=== PATIENT | male | born 1955 | race Caucasian/White ===

== ENCOUNTER 2019-03-31 21:34 | Outpatient (REF) | payer MEDICARE, BC, SELFPAY ==
[2019-03-31 22:18] LABS: Anion Gap 12.3 mmol/L (3-11); BUN 30 mg/dL (7-18); CO2 19.7 mmol/L (21.0-32.0); CREATININE 1.54 mg/dL (0.70-1.30); Calcium 8.7 mg/dL (8.5-10.1); Chloride 109 mmol/L (98-107); Estimated GFR 45.56 (mL/min/1.73m2); Glucose 81 mg/dL (70-100); Potassium 5.2 mmol/L (3.5-5.1); Sodium 141 mmol/L (136-145)
[2019-03-31 22:24] LABS: Hemoglobin A1C 6.8 % (4.5-6.2)
== END 2019-03-31 21:54 ==
LOC: LBN 21:34
PROVIDERS: PCP Family Medicine; Visit Provider Family Medicine
DX: E11.52 Type 2 diabetes mellitus with diabetic peripheral angiopathy with gangrene (principal)
CPT/HCPCS: 80048; 83036

== ENCOUNTER 2019-09-29 13:09 | Outpatient (REF) | payer MEDICARE, BC, SELFPAY ==
[2019-09-29 22:55] LABS: Anion Gap 12.6 mmol/L (3-11); BUN 40 mg/dL (7-18); CO2 21.4 mmol/L (21.0-32.0); CREATININE 1.82 mg/dL (0.70-1.30); Calcium 9.4 mg/dL (8.5-10.1); Chloride 107 mmol/L (98-107); Estimated GFR 37.46 (mL/min/1.73m2); Glucose 120 mg/dL (74-106); Sodium 141 mmol/L (136-145)
[2019-09-29 23:03] LABS: Potassium 6.4 mmol/L (3.5-5.1)
== END 2019-09-29 13:29 ==
LOC: NCHCN 13:09
PROVIDERS: PCP Family Medicine; Visit Provider Family Medicine
DX: E87.5 Hyperkalemia (principal)
CPT/HCPCS: 80048

== ENCOUNTER 2019-09-30 09:27 | Emergency (ER) | payer MEDICARE, BC, SELFPAY ==
[2019-09-30] VITALS (18 sets, daily range): BP systolic 137–164; BP diastolic 59–78; PULSE 57–70; RESP 16–25; TEMP 36.7; O2SAT 94–97
--- NOTE | 2019-09-30 10:04 | W.ED.GENAD ---
Discharge Plan Disposition Patient Disposition: HOME Condition: Improving Discharge Details Chief Complaint: GenMedical Clinical Impression: Hyperkalemia Primary Care Provider: Belle Garcia ED Provider: Vale Ledezma Home Meds and New Rx's Prescriptions: Continued ibuprofen [Advil Liqui-Gel] 200 MG capsule 200 mg PO PRN PRNRF: 0 Lantus Solostar U-100 Insulin 100 UNIT/1 ML insulin pen 50 units Sub-Q HS RF: 0 atorvastatin [Lipitor] 10 MG tablet 10 mg PO DAILY RF: 0 aspirin 81 MG tablet,delayed release (DR/EC) 81 mg PO DAILY RF: 0 ceftriaxone 2 GM recon soln 2 IV RF: 0 Eliquis 5 MG tablet 5 mg PO DAILY RF: 0 pregabalin [Lyrica] 100 mg Capsule 100 mg PO BID RF: 0 Discontinued metformin 500 MG tablet 500 mg PO BID RF: 0 Discharge Instructions Instructions: Hyperkalemia (ED) Additional Instructions: Please continue with the medication changes as already made by your primary care. If you develop any weakness, palpitations, chest pain or other new/worsening symptoms please seek care urgently once again. Otherwise, please follow-up closely with primary care. Please call today to schedule follow-up appointment. Referrals: Belle Garcia [Primary Care Provider] - Discharge Data Discharge Date/Time-TO BE ENTERED AT DEPARTURE: 09/30/19 11:15 Medical Decision Making Patient is a pleasant 64-year-old male presenting today with chief complaint of hyperkalemia. Patient was diagnosed with hyperkalemia with a K of 6.4 yesterday. His metformin was stopped this is a concern to be of any agent. His kidney function has also been declining. Patient is denying any symptoms of hyperkalemia at this time. Reports that he is feeling quite well. Lipitor was also stopped on Friday after potassium was 6 was noted by cardiology. ECG reviewed by Dr. Baig. Patient in NSR with rate 63, no acute ischemic changes noted. Labs reviewed. Mild anemia with a hemoglobin of 12.2. Potassium is down to 5.3, this is downtrending from 6.4 yesterday. BUN is elevated at 41, patient is hydrating at this time. Creatinine is 1.74 this is down slightly from 1.82 yesterday. Albumin is low at 2.9, suspect this is cystic with underlying kidney issues. Last albumin completed here was 3.9 in 2017. He reports his primary care has referred him to a application helper. I have advised that he continue with cessation of his metformin as I am concerned this may be driving the issues bring him here today. He continues to report that he is feeling quite well. I will touch base with his primary care to discuss any further medication changes. Discussed case with Dr. Garcia. Patient and Dr. Grant have a plan moving forward regarding medication changes. No further changes need to be made at this time. Patient was given strict return precautions. He has an appointment upcoming with primary care. All of his questions or concerns were addressed and is agreement this plan. HPI General Mode of arrival: ambulatory. Date/Time Provider Initiated Documentation: 09/30/19 09:28. Limitations to Documentation: no limitations. Information obtained by: patient and family (accompanied by ). HPI Narrative: Patient is 64-year-old male, accompanied by his , with history of cardiac murmur, type 2 diabetes, presenting today with chief complaint of hyperkalemia. Patient was seen by cardiology at [facility] on Friday and was noted to have a potassium of 6 and was advised to have this rechecked. This was rechecked by primary care yesterday at which time the potassium was found to be 6.4. Primary care contact the patient and asked that he come the emergency department for evaluation. They did stop his metformin yesterday. I have also noted a climb in his creatinine and decreased GFR. Patient denies any weakness, change in fatigue, muscle weakness. No recent travel. No shortness of breath. Denies any chest pain. No palpitations. Related Data Home Medications Medication Instructions Recorded Confirmed Lantus Solostar U-100 Insulin 50 units SUB-Q HS 08/29/17 09/30/19 ibuprofen [Advil Liqui-Gel] 200 mg PO PRN PRN 08/29/17 09/30/19 aspirin 81 mg PO DAILY 12/30/17 09/30/19 atorvastatin [Lipitor] 10 mg PO DAILY 12/30/17 09/30/19 Eliquis 5 mg PO DAILY 12/31/17 09/30/19 ceftriaxone 2 IV 12/31/17 pregabalin [Lyrica] 100 mg PO BID 09/30/19 09/30/19 Allergies Allergy/AdvReac Type Severity Reaction Status Date / Time No Known Allergies Allergy Unverified 09/30/19 09:37 General Stated Complaint: GenMedical DAMION: 3 Review of Systems Constitutional Constitutional: Reports as per HPI, Denies chills, Denies fever(s), Denies headache(s), Denies lethargy and Denies poor appetite Eyes Eyes: Denies change in vision ENT Ears, Nose, Mouth, and Throat: Denies dizziness and Denies headache(s) Cardiovascular Cardiovascular: Reports as per HPI, Denies chest pain, Denies chest pain at rest, Denies chest pain with activity, Denies dyspnea and Denies dyspnea on exertion Respiratory Respiratory: Reports as per HPI, Denies chest congestion, Denies cough, Denies pain on inspiration, Denies pain with cough, Denies dyspnea, Denies dyspnea on exertion and Denies wheezing Gastrointestinal Gastrointestinal: Reports as per HPI, Denies abdominal pain, Denies diarrhea, Denies nausea and Denies vomiting Genitourinary Genitourinary: Denies system reviewed and no additional complaints, except as docu (denies change in urinary habits) Musculoskeletal Musculoskeletal: Reports as per HPI, Denies back pain, Denies muscle cramps, Denies muscle weakness and Denies numbness Integumentary/Breasts Skin/Breast: Reports as per HPI and Denies rash Neurologic Neurologic: Reports as per HPI, Denies dizziness, Denies headache(s) and Denies numbness Allergic/Immunologic Allergic/Immunologic: Denies wheezing PFSH Medical History Cardiac murmur Colon polyps Type 2 diabetes mellitus Social History Smoking/Tobacco Use Status: Never Drug use: Never Do you feel safe at home: Yes Do you feel safe in your relationship?: Yes Exam Const General: cooperative, healthy appearing, comfortable, no acute distress and well developed Nutritional Appearance: well nourished and overweight Orientation: alert, awake and oriented x3 HENMT Head: normal to inspection Ears: hearing grossly normal bilaterally Mouth: moist mucous membranes Chest Chest: normal inspection of the chest, normal palpation of entire chest wall and no crepitus Resp Effort & Inspection: normal respiratory effort, able to speak in complete sentences and no respiratory distress Auscultation: clear to auscultation bilaterally, no rales, no rhonchi and no wheezes Cardio Rate: regular rate Rhythm: regular rhythm Heart Sounds: murmur systolic GI Inspection: normal to inspection, no edema and non-distended Palpation: soft, no hepatosplenomegaly, not firm, no guarding, not rigid and nontender Auscultation: normal bowel sounds Skin General skin exam: no rashes or lesions noted Trauma: no lacerations or abrasions Neuro General: alert, awake and oriented x3 Cognition: normal cognition Speech: speech normal Gait: normal gait Motor: muscle tone normal throughout and strength 5/5 throughout DTR's: Rt Biceps: 2+, Lt Biceps: 2+, Rt Brachioradialis: 2+ and Lt Brachioradialis: 2+ Extrem General: normal to inspection, normal capillary refill, no pedal edema, no calf tenderness and normal gait (Patient status post left BKA) Psych Appearance: grossly normal and well kempt Mental Status: mental status grossly normal Speech and Movement: speech and movement normal Course Vital Signs Vital signs: Vital Signs Temperature 36.7 C 09/30/19 09:33 Pulse 60 09/30/19 09:33 Respiratory Rate 16 09/30/19 09:33 Blood Pressure 164/71 H 09/30/19 09:33 Pulse Oximetry 97 09/30/19 09:33 Temperature 36.7 C 09/30/19 09:33 Temperature Source Skin 09/30/19 09:33 Pulse 63 09/30/19 09:46 Pulse 63 09/30/19 10:00 Respiratory Rate 19 09/30/19 10:00 Respiratory Effort Non-Labored 09/30/19 09:42 Blood Pressure 142/78 H 09/30/19 09:46 Blood Pressure Mean 90 09/30/19 09:46 Blood Pressure Position Sitting 09/30/19 09:33 Pulse Oximetry 95 09/30/19 10:00 Oxygen Delivery Method Room Air 09/30/19 09:33 Oxygen Flow Rate 0 09/30/19 09:33 Pain Level 0 09/30/19 09:33
[2019-09-30] MEDS: Normal Saline 1,000 ML 1000 ML IV (10:06)
[2019-09-30 10:15] LABS: Abs Immature Grans 0.02 k/cumm (0.0-0.09); Absolute Basophil Count 0.03 k/cumm (0.0-0.2); Absolute Eosinophil Count 0.15 k/cumm (0.0-0.7); Absolute Lymphocyte Count 1.11 k/cumm (1.2-3.4); Absolute Monocyte Count 0.61 k/cumm (0.11-0.7); Absolute Neutrophil Count 3.46 k/cumm (1.2-6.7); Basophils % 0.6; Eosinophils % 2.8; HCT 37.4 % (40.0-50.0); HGB 12.2 g/dL (13.5-17.5); Immature Grans % 0.4 %; Lymphocytes % 20.6; Mean Corp. HGB Concentration 32.6 g/dL (32.0-36.0); Mean Corpuscular Hemoglobin 28.8 pg (27.0-33.0); Mean Corpuscular Volume 88.4 fL (80-95); Mean Platelet Volume 11.2 fL (8.0-11.0); Monocytes % 11.3; Neutrophils % 64.3; Platelet Count 205 x1000/uL (130-400); RBC 4.23 m/cumm (4.50-6.00); RBC Distribution Width 14.1 % (11.8-14.1); White Blood Cell Count 5.38 k/cumm (4.4-10.8)
[2019-09-30 10:22] LABS: ALT 15 U/L (16-63); AST 26 U/L (15-37); Albumin 2.9 g/dL (3.4-5.0); Alkaline Phosphatase 78 U/L (46-116); Anion Gap 9.6 mmol/L (3-11); BUN 41 mg/dL (7-18); Bilirubin, Total 0.2 mg/dL (0.2-1.0); CO2 21.4 mmol/L (21.0-32.0); CREATININE 1.74 mg/dL (0.70-1.30); Calcium 8.8 mg/dL (8.5-10.1); Chloride 109 mmol/L (98-107); Estimated GFR 39.45 (mL/min/1.73m2); Glucose 139 mg/dL (74-106); Potassium 5.3 mmol/L (3.5-5.1); Sodium 140 mmol/L (136-145); Total Protein 6.5 g/dL (6.4-8.2)
== END 2019-09-30 11:15 | disposition home or self-care (01) ==
PROVIDERS: Emergency Provider Physician Assistant; PCP Family Medicine
DX: E87.5 Hyperkalemia (principal); E11.9 Type 2 diabetes mellitus without complications; Z79.4 Long term (current) use of insulin
CPT/HCPCS: 80053; 93005; 96360; 99285; 85025; 93010; 99284

== ENCOUNTER 2019-10-14 13:46 | Emergency (ER) | payer MEDICARE, BC, SELFPAY ==
[2019-10-14] VITALS (40 sets, daily range): BP systolic 133–190; BP diastolic 58–83; PULSE 56–71; RESP 13–24; TEMP 36.5; O2SAT 95–100
--- NOTE | 2019-10-14 13:47 | W.ED.GENAD ---
Discharge Plan Disposition Patient Disposition: HOME Condition: Fair Discharge Details Chief Complaint: Palpitatns Clinical Impression: HUY (acute kidney injury), Acute dehydration Primary Care Provider: Belle Garcia ED Provider: Vale Ledezma Home Meds and New Rx's Prescriptions: Continued Lantus Solostar U-100 Insulin 100 UNIT/1 ML insulin pen 33 units Sub-Q HS RF: 0 atorvastatin [Lipitor] 10 MG tablet 10 mg PO DAILY RF: 0 aspirin 81 MG tablet,delayed release (DR/EC) 81 mg PO DAILY RF: 0 Eliquis 5 MG tablet 5 mg PO DAILY RF: 0 pregabalin [Lyrica] 100 mg Capsule 100 mg PO BID RF: 0 acetaminophen 500 mg Tablet 500 mg PO Q6H PRNRF: 0 Victoza 2-Jimmy 0.6 mg/0.1 mL (18 mg/3 mL) Pen Injector 1.8 mg SUBCUT Q24H RF: 0 Discharge Instructions Instructions: Dehydration (ED) Additional Instructions: Encourage water intake. Your goal is for you to urinate multiple times a day and have your urine be clear. Dr. Garcia would like for you to go to the office Friday morning to have your blood work repeated. She will contact you with results. If you develop fever/chills, pain, chest shortness of breath or other new/worsening symptoms please seek care urgently once again. Referrals: Belle Garcia [Primary Care Provider] - Discharge Data Discharge Date/Time-TO BE ENTERED AT DEPARTURE: 10/14/19 18:19 Medical Decision Making <Rock Borges DO - Last Filed: 10/14/19 14:26> EKG 14: 06 Rate 68, IA 168, QTc 406, QRS 134, sinus rhythm, right bundle branch block, no evidence of STEMI. Flattening of T wave in lead III. Nonspecific less than 1 mm depression in V4 and V5. Slightly atypical QRS morphology in V2 and V3, however I do feel that this is his right bundle branch block, and not an epsilon wave. EKG does appear to be changed from previous EKG on 09/30/2019. <MELVIN Cruz - Last Filed: 10/15/19 16:08> Patient is a pleasant 64-year-old male, accompanied by his , with chief complaint of irregular heartbeat noted by home health nursing staff. Patient has history of type 2 diabetes, cardiac murmur, peripheral neuropathy, osteomyelitis. Patient has had an amputation on the left lower extremity, injection of the right fifth. Patient status post angioplasty on 12/26/2017. Patient denies having any symptoms at this time that this was noted by home health nursing. Denies any palpitations, lightheadedness, chest pain, shortness of breath. States that right now he is feeling quite well. Patient was seen by me recently after having been diagnosed with hyperkalemia. When he presented to emerge department, his hypokalemia was self resolving. He is since stopped his metformin at the instruction primary care and myself. He reports that his primary care with concern for possible recurrence of his hyperkalemia. On exam, patient is resting comfortably. Patient has no irregularity in rhythm and pulse in extremities or with auscultation. He does have a harsh systolic murmur which is known by the patient and unchanged since previous evaluation. EKG was reviewed by Dr. Borges, please see his note. No acute abnormalities are noted. Labs reviewed. Significant for creatinine of 2.32, this is up from 1.74 on the . BUN is elevated at 56 which is high er than he has ever been historically. Discussed this with the patient. He is aware of his chronic kidney disease, has appointment with vendor representatives next month. States that he does not drink water daily. Consulted with the patients primary care, she is concerned that the patient is noncompliant and that htis is concerning. We discussed inpatient versus outpatient management for the patient's acute kidney injury. I also discussed disposition options with patient and his . They feel that discharge home with increased oral intake would be appropriate. Primary care advises that she will order labs to be repeated Friday and the patient should come in for lab work in the morning. Patient is received 1 L fluid thus far. He is hydrating orally here. Again, the patient admits to poor water intake and advised that he will be able to improve this. He was given strict return precautions. All the questions and concerns were addressed and they are in agreement this plan. HPI <Rock Borges DO - Last Filed: 10/14/19 14:26> General Date/Time Provider Initiated Documentation: 10/14/19 13:47. Related Data Home Medications Medication Instructions Recorded Confirmed Lantus Solostar U-100 Insulin 33 units SUB-Q HS 08/29/17 10/14/19 aspirin 81 mg PO DAILY 12/30/17 10/14/19 atorvastatin [Lipitor] 10 mg PO DAILY 12/30/17 10/14/19 Eliquis 5 mg PO DAILY 12/31/17 10/14/19 pregabalin [Lyrica] 100 mg PO BID 09/30/19 10/14/19 Victoza 2-Jimmy 1.8 mg SUBCUT Q24H 10/14/19 10/14/19 acetaminophen 500 mg PO Q6H PRN 10/14/19 10/14/19 Allergies Allergy/AdvReac Type Severity Reaction Status Date / Time No Known Allergies Allergy Unverified 10/14/19 14:00 <MELVIN Cruz - Last Filed: 10/15/19 16:08> General Mode of arrival: ambulatory. Limitations to Documentation: no limitations. Information obtained by: patient, family and RN notes reviewed. HPI Narrative: Patient is a pleasant 64-year-old male presents today, coming by his , with chief complaint of home health nurse telling him that he had no irregular heartbeat. States that this was told him this morning when she was assessing the wound on his right foot. Patient has multiple chronic issues but was seen recently for hyperkalemia. He contacted his primary care who was concerned that hyperkalemia may be causing this abnormality and prompted him to come the emergency department. Patient denies having any symptoms. He did not have any sense of palpitations shortness of breath, lightheadedness, chest pain, nausea, neck pain, arm pain. He reports feeling well at this point. No recent change in medications. General DAMION: 3 <MELVIN Cruz - Last Filed: 10/15/19 16:08> Constitutional Constitutional: Reports as per HPI, Denies chills, Denies fever(s), Denies headache(s), Denies lethargy and Denies poor appetite Eyes Eyes: Denies change in vision ENT Ears, Nose, Mouth, and Throat: Denies dizziness and Denies headache(s) Cardiovascular Cardiovascular: Reports as per HPI, Denies chest pain, Denies chest pain at rest, Denies chest pain with activity, Denies leg edema, Denies lightheadedness, Denies radiating jaw, neck or arm pain, Denies palpitations, Denies dyspnea and Denies dyspnea on exertion Respiratory Respiratory: Reports as per HPI, Denies chest congestion, Denies cough, Denies pain on inspiration, Denies pain with cough, Denies dyspnea, Denies dyspnea on exertion and Denies wheezing Gastrointestinal Gastrointestinal: Reports as per HPI, Denies abdominal pain, Denies diarrhea, Denies nausea and Denies vomiting Genitourinary Genitourinary: Denies system reviewed and no additional complaints, except as docu (denies change in urinary habits) Musculoskeletal Musculoskeletal: Reports as per HPI and Denies back pain Integumentary/Breasts Skin/Breast: Reports as per HPI and Denies rash Neurologic Neurologic: Reports as per HPI, Denies dizziness and Denies headache(s) Endocrine Endocrine: Denies palpitations Allergic/Immunologic Allergic/Immunologic: Denies wheezing PFSH <Rock Borges DO - Last Filed: 10/14/19 14:26> Social History Smoking/Tobacco Use Status: Never Alcohol Intake: former Drug use: Never Substance use type: does not use Do you feel safe at home: Yes Do you feel safe in your relationship?: Yes <MELVIN Cruz - Last Filed: 10/15/19 16:08> Const General: cooperative, healthy appearing, comfortable, no acute distress and well developed Nutritional Appearance: well nourished and overweight Orientation: alert, awake and oriented x3 HENMT Head: normal to inspection Ears: hearing grossly normal bilaterally Mouth: moist mucous membranes Chest Chest: normal inspection of the chest, normal palpation of entire chest wall and no crepitus Resp Effort & Inspection: normal respiratory effort, able to speak in complete sentences and no respiratory distress Auscultation: clear to auscultation bilaterally, no rales, no rhonchi and no wheezes Cardio Rate: regular rate Rhythm: regular rhythm Heart Sounds: murmur systolic harsh and at the left sternal border GI Inspection: normal to inspection, no edema and non-distended Palpation: soft, no hepatosplenomegaly, not firm, no guarding, not rigid and nontender Auscultation: normal bowel sounds Back/Spine/Pelvis Back: no CVA tenderness Thoracic/Lumbar Spine: thoracic and lumbar spine normal to inspection Skin General skin exam: no rashes or lesions noted Trauma: no lacerations or abrasions Neuro General: alert, awake and oriented x3 Cognition: normal cognition Speech: speech normal Gait: normal gait Extrem General: normal to inspection, normal capillary refill, no pedal edema, no calf tenderness and normal gait Psych Appearance: grossly normal and well kempt Mental Status: mental status grossly normal Speech and Movement: speech and movement normal
[2019-10-14] MEDS: Normal Saline 1,000 ML 150 ML IV (13:50)
[2019-10-14 14:45] LABS: Abs Immature Grans 0.02 k/cumm (0.0-0.09); Absolute Basophil Count 0.04 k/cumm (0.0-0.2); Absolute Eosinophil Count 0.11 k/cumm (0.0-0.7); Absolute Lymphocyte Count 1.56 k/cumm (1.2-3.4); Absolute Neutrophil Count 4.11 k/cumm (1.2-6.7); Basophils % 0.6; Eosinophils % 1.7; HCT 41.9 % (40.0-50.0); HGB 13.7 g/dL (13.5-17.5); Immature Grans % 0.3 %; Lymphocytes % 23.9; Mean Corp. HGB Concentration 32.7 g/dL (32.0-36.0); Mean Corpuscular Hemoglobin 28.9 pg (27.0-33.0); Mean Corpuscular Volume 88.4 fL (80-95); Monocytes % 10.7; Neutrophils % 62.8; Platelet Count 269 x1000/uL (130-400); RBC 4.74 m/cumm (4.50-6.00); RBC Distribution Width 14.4 % (11.8-14.1); White Blood Cell Count 6.54 k/cumm (4.4-10.8)
[2019-10-14 15:26] LABS: ALT 21 U/L (16-63); AST 17 U/L (15-37); Albumin 3.4 g/dL (3.4-5.0); Alkaline Phosphatase 94 U/L (46-116); Anion Gap 10.1 mmol/L (3-11); BUN 56 mg/dL (7-18); Bilirubin, Total 0.3 mg/dL (0.2-1.0); CO2 24.9 mmol/L (21.0-32.0); CREATININE 2.32 mg/dL (0.70-1.30); Chloride 106 mmol/L (98-107); Estimated GFR 28.31 (mL/min/1.73m2); Glucose 179 mg/dL (74-106); Magnesium 2.3 mg/dL (1.8-2.4); Potassium 4.5 mmol/L (3.5-5.1); Sodium 141 mmol/L (136-145); TSH 2.21 uIU/mL (0.36-3.74); Total Protein 7.5 g/dL (6.4-8.2); Troponin I 0.05 ng/Ml (<0.06)
== END 2019-10-14 18:19 | disposition home or self-care (01) ==
PROVIDERS: Emergency Provider Physician Assistant; PCP Family Medicine
DX: N17.9 Acute kidney failure, unspecified (principal); E86.0 Dehydration; E11.42 Type 2 diabetes mellitus with diabetic polyneuropathy; Z79.4 Long term (current) use of insulin
CPT/HCPCS: 80053; 93005; 96361; 96365; 99284; 83735; 84443; 84484; 85025; 93010

== ENCOUNTER 2019-10-18 11:48 | Outpatient (REF) | payer MEDICARE, BC, SELFPAY ==
[2019-10-18 22:15] LABS: Anion Gap 9.1 mmol/L (3-11); CO2 25.9 mmol/L (21.0-32.0); Chloride 104 mmol/L (98-107); Potassium 5.3 mmol/L (3.5-5.1); Sodium 139 mmol/L (136-145)
[2019-10-18 22:31] LABS: BUN 47 mg/dL (7-18); CREATININE 1.94 mg/dL (0.70-1.30); Calcium 9.5 mg/dL (8.5-10.1); Glucose 177 mg/dL (74-106); Magnesium 2.1 mg/dL (1.8-2.4)
== END 2019-10-18 12:08 ==
LOC: NCHCN 11:48
PROVIDERS: PCP Family Medicine; Visit Provider Family Medicine
DX: E87.5 Hyperkalemia (principal); I10 Essential (primary) hypertension; E11.9 Type 2 diabetes mellitus without complications; N18.9 Chronic kidney disease, unspecified
CPT/HCPCS: 80048; 83735

== ENCOUNTER 2019-11-25 01:46 | Outpatient (CLI) | payer MEDICARE, BC, SELFPAY ==
--- NOTE | 2019-11-25 13:53 | DI.US_ITS ---
EXAM: US RENAL CLINICAL HISTORY: CHRONIC KIDNEY DISEASE N18.9, ? OBSTRUCTIVE PROCESS. TECHNIQUE: Lamb scale, color and spectral Doppler were used. COMPARISON: No exams were available for comparison FINDINGS: Renal size in cm: Right: 11.6 left: 11.8 Echogenicity: Normal. Hydronephrosis: No. Cyst or mass: No. Nephrolithiasis: No. Other findings: None. Bladder:Normal. Ureteral jets: Right: Visualized and unremarkable. Left: Not visualized. Prevoid vol:279 cc Postvoid vol:0 cc Prostate: 21 cc DOPPLER FINDINGS: Within normal limits. IMPRESSION: No evidence of hydronephrosis or nephrolithiasis. DATA REPOSITORY:
== END 2019-11-25 02:06 ==
PROVIDERS: PCP Family Medicine; Visit Provider Internal Medicine
DX: N18.9 Chronic kidney disease, unspecified (principal)
CPT/HCPCS: 76770

== ENCOUNTER 2020-02-03 09:49 | Outpatient (REF) | payer MEDICARE, BC, SELFPAY ==
[2020-02-04 08:32] LABS: Abs Immature Grans 0.04 k/cumm (0.0-0.09); Absolute Basophil Count 0.03 k/cumm (0.0-0.2); Absolute Eosinophil Count 0.19 k/cumm (0.0-0.7); Absolute Lymphocyte Count 1.48 k/cumm (1.2-3.4); Absolute Monocyte Count 0.79 k/cumm (0.11-0.7); Absolute Neutrophil Count 4.67 k/cumm (1.2-6.7); Basophils % 0.4; Eosinophils % 2.6; HCT 39.4 % (40.0-50.0); HGB 13.1 g/dL (13.5-17.5); Immature Grans % 0.6 %; Lymphocytes % 20.6; Mean Corp. HGB Concentration 33.2 g/dL (32.0-36.0); Mean Corpuscular Hemoglobin 29.9 pg (27.0-33.0); Mean Platelet Volume 11.6 fL (8.0-11.0); Neutrophils % 64.8; Platelet Count 233 x1000/uL (130-400); RBC 4.38 m/cumm (4.50-6.00); RBC Distribution Width 13.6 % (11.8-14.1)
[2020-02-04 08:53] LABS: ALT 21 U/L (16-63); AST 12 U/L (15-37); Albumin 3.7 g/dL (3.4-5.0); Alkaline Phosphatase 94 U/L (46-116); Anion Gap 7.5 mmol/L (3-11); BUN 42 mg/dL (7-18); Bilirubin, Total 0.3 mg/dL (0.2-1.0); CO2 26.5 mmol/L (21.0-32.0); CREATININE 2.06 mg/dL (0.70-1.30); Calcium 9.4 mg/dL (8.5-10.1); Calculated LDL 79 mg/dL (<100); Chloride 109 mmol/L (98-107); Cholesterol 147 mg/dL (<200); Estimated GFR 32.47 (mL/min/1.73m2); Glucose 123 mg/dL (74-106); HDL Cholesterol 48 mg/dL (40-60); Potassium 5.8 mmol/L (3.5-5.1); Sodium 143 mmol/L (136-145); T4 8.8 ug/mL (4.7-13.3); TSH 3.12 uIU/mL (0.36-3.74); Total Protein 7.2 g/dL (6.4-8.2); Triglyceride 100 mg/dL (<150)
[2020-02-04 09:08] LABS: FREE T4 0.86 ng/dL (0.76-1.46)
[2020-02-05 13:48] LABS: Lipoprotein (a) 110 mg/dL (<=30)
[2020-02-09 11:39] LABS: Misc Referral (MAYO) See Comments
== END 2020-02-03 10:09 ==
LOC: NCHCN 09:49
PROVIDERS: PCP Family Medicine; Visit Provider Family Medicine
DX: Z11.9 Encounter for screening for infectious and parasitic diseases, unspecified (principal); Z79.4 Long term (current) use of insulin; I10 Essential (primary) hypertension; I73.9 Peripheral vascular disease, unspecified
CPT/HCPCS: 80053; 80061; 82172; 83695; 84436; 84439; 84443; 85025

== ENCOUNTER 2020-03-20 13:08 | Outpatient (REF) | payer MEDICARE, BC, SELFPAY ==
[2020-03-20 21:26] LABS: ALT 12 U/L (16-63); AST 14 U/L (15-37); Albumin 3.5 g/dL (3.4-5.0); Alkaline Phosphatase 86 U/L (46-116); BUN 46 mg/dL (7-18); Bilirubin, Total 0.3 mg/dL (0.2-1.0); Calcium 9.2 mg/dL (8.5-10.1); Chloride 109 mmol/L (98-107); Estimated GFR 31.76 (mL/min/1.73m2); Glucose 135 mg/dL (74-106); Sodium 141 mmol/L (136-145); Total Protein 6.7 g/dL (6.4-8.2)
== END 2020-03-20 13:28 ==
LOC: NCHCN 13:08
PROVIDERS: PCP Family Medicine; Visit Provider Family Medicine
DX: I35.0 Nonrheumatic aortic (valve) stenosis (principal)
CPT/HCPCS: 80053

== ENCOUNTER 2020-03-21 13:38 | Emergency (ER) | payer MEDICARE, BC, SELFPAY ==
[2020-03-21] VITALS (18 sets, daily range): BP systolic 119–150; BP diastolic 41–56; PULSE 47–64; RESP 15–23; TEMP 36.6–36.8; O2SAT 96–99
[2020-03-21 14:12] LABS: Abs Immature Grans 0.02 k/cumm (0.0-0.09); Absolute Basophil Count 0.01 k/cumm (0.0-0.2); Absolute Eosinophil Count 0.18 k/cumm (0.0-0.7); Absolute Lymphocyte Count 1.18 k/cumm (1.2-3.4); Absolute Monocyte Count 0.61 k/cumm (0.11-0.7); Absolute Neutrophil Count 3.91 k/cumm (1.2-6.7); Basophils % 0.2; HCT 30.9 % (40.0-50.0); HGB 9.9 g/dL (13.5-17.5); Immature Grans % 0.3 %; Mean Corpuscular Hemoglobin 29.3 pg (27.0-33.0); Mean Corpuscular Volume 91.4 fL (80-95); Mean Platelet Volume 10.7 fL (8.0-11.0); Monocytes % 10.3; Neutrophils % 66.2; Platelet Count 191 x1000/uL (130-400); RBC 3.38 m/cumm (4.50-6.00); RBC Distribution Width 13.8 % (11.8-14.1); White Blood Cell Count 5.91 k/cumm (4.4-10.8)
[2020-03-21 14:23] LABS: ALT 16 U/L (16-63); AST 12 U/L (15-37); Albumin 3.2 g/dL (3.4-5.0); Alkaline Phosphatase 86 U/L (46-116); Anion Gap 7.4 mmol/L (3-11); BUN 45 mg/dL (7-18); Bilirubin, Total 0.3 mg/dL (0.2-1.0); CO2 22.6 mmol/L (21.0-32.0); CREATININE 1.94 mg/dL (0.70-1.30); Calcium 8.8 mg/dL (8.5-10.1); Chloride 107 mmol/L (98-107); Glucose 148 mg/dL (74-106); Magnesium 2.1 mg/dL (1.8-2.4); Potassium 5.4 mmol/L (3.5-5.1); Sodium 137 mmol/L (136-145); Total Protein 6.7 g/dL (6.4-8.2)
[2020-03-21 14:28] LABS: Diff Comment RBC Morph Reviewed; RBC Morphology Normal
--- NOTE | 2020-03-21 14:52 | ED.GENADUL_ITS ---
Discharge Plan Disposition Patient Disposition: HOME Condition: Stable Discharge Details Chief Complaint: GenMedical Clinical Impression: Hyperkalemia Primary Care Provider: Belle Garcia ED Provider: Jonathan Land Home Meds and New Rx's Prescriptions: Continued Lantus Solostar U-100 Insulin 100 UNIT/1 ML insulin pen 33 - 34 units Sub-Q HS RF: 0 atorvastatin [Lipitor] 10 MG tablet 10 mg PO DAILY RF: 0 aspirin 81 MG tablet,delayed release (DR/EC) 81 mg PO DAILY RF: 0 Eliquis 5 MG tablet 5 mg PO DAILY RF: 0 pregabalin [Lyrica] 100 mg Capsule 100 mg PO BID RF: 0 acetaminophen 500 mg Tablet 1,000 mg PO Q6H PRNRF: 0 Victoza 2-Jimmy 0.6 mg/0.1 mL (18 mg/3 mL) Pen Injector 1.8 mg SUBCUT Q24H RF: 0 Discharge Instructions Instructions: Hyperkalemia (ED) Additional Instructions: Potassium was 5.4 today. A single dose of Kayexalate was given. I personally spoke with Dr. Arriola regarding your visit. Please reach out to his office later today or tomorrow for prompt outpatient reevaluation. You will need to have your blood drawn in the next day or 2 to recheck your levels. In the meantime please watch for new or worsening symptoms and return to the ER for any concerns. Medical Decision Making 64-year-old gentleman had routine blood draw yesterday, potassium noted to be 6, unable to be treated as outpatient and sent to the ER for evaluation. He is currently asymptomatic. Mild bradycardia, blood pressure 150/56. He appears well, nontoxic. Will obtain EKG and repeat CBC and CMP before treatment. EKG without signs of obvious hyperkalemia. Patient with mild anemia however is otherwise asymptomatic. Denies black tarry stools or blood in his stool. Potassium today 5.4. Creatinine 1.94 with a GFR of 34.8. GFR appears to be at his baseline. I discussed laboratory values with Dr. Nguyễn. He is fine with the patient receiving a single dose of Kayexalate and being discharged. No obvious emergent process identified here in his visit today and he is otherwise asymptomatic. Will have his blood drawn in the next 24-48 hours to for reassessment. Patient made aware of this plan and comfortable with discharge, no additional questions or concerns. He will reach out to the office of Dr. Nguyễn tomorrow for proper follow-up. Single dose of 30 Kayexalate given now Medical Records Medical records reviewed: Yes I reviewed the patient's medical records. Lab Data Lab results reviewed: Yes I reviewed the patient's lab results. Lab results narrative: Laboratory Tests Range/Units 03/21/20 03/21/20 13:59 13:59 WBC (4.4-10.8) k/cumm 5.91 RBC (4.50-6.00) m/cumm 3.38 L Hgb (13.5-17.5) g/dL 9.9 L Hct (40.0-50.0) % 30.9 L MCV (80-95) fL 91.4 MCH (27.0-33.0) pg 29.3 MCHC (32.0-36.0) g/dL 32.0 RDW (11.8-14.1) % 13.8 Plt Count (130-400) x1000/uL 191 MPV (8.0-11.0) fL 10.7 Immature Gran % % 0.3 Neutrophils % 66.2 Lymphocytes % 20.0 Monocytes % 10.3 Eosinophils % 3.0 Basophils % 0.2 Absolute Neutrophils (1.2-6.7) k/cumm 3.91 Absolute Lymphocytes (1.2-3.4) k/cumm 1.18 L Absolute Monocytes (0.11-0.7) k/cumm 0.61 Absolute Eosinophils (0.0-0.7) k/cumm 0.18 Absolute Basophils (0.0-0.2) k/cumm 0.01 Differential Comment Rbc morph reviewed RBC Morphology Normal Sodium (136-145) mmol/L 137 Potassium (3.5-5.1) mmol/L 5.4 H Chloride (98-107) mmol/L 107 Carbon Dioxide (21.0-32.0) mmol/L 22.6 Anion Gap (3-11) mmol/L 7.4 BUN (7-18) mg/dL 45 H Creatinine (0.70-1.30) mg/dL 1.94 H Estimated GFR/1.73 m2 (mL/min/1.73m2) 34.80 Glucose (74-106) mg/dL 148 H Calcium (8.5-10.1) mg/dL 8.8 Magnesium (1.8-2.4) mg/dL 2.1 Total Bilirubin (0.2-1.0) mg/dL 0.3 AST (15-37) U/L 12 L ALT (16-63) U/L 16 Alkaline Phosphatase (46-116) U/L 86 Total Protein (6.4-8.2) g/dL 6.7 Albumin (3.4-5.0) g/dL 3.2 L ECG Data Attestation: I personally reviewed and interpreted this ECG (s) as follows: Interpretation: EKG performed at 1347. Interpretation reviewed and interpreted with Dr. Arteaga. Sinus bradycardia, ventricular rate of 57. No STEMI. Right bundle branch block. ST depression in V3 through 6, appears rather similar when compared to previous EKG on 10-14-19 HPI General Mode of arrival: ambulatory . Date/Time Provider Initiated Documentation: 03/21/20 13:54 . Limitations to Documentation: no limitations . Information obtained by: patient . HPI Narrative: This is a 64-year-old gentle man with history of cardiac disease, chronic renal disease, type [address] diabetes. He [address] a CT with contrast at [facility] recently, had routine blood work done yesterday as an outpatient to have his renal function and potassium evaluated. Potassium was noted to be 6. Dr. Nguyễn wanted the patient to receive Kayexalate however the pharmacy did not have it via prescription so subsequently the patient came to the ER for evaluation. Patient reports that he feels well today. Denies fever, chest pain, shortness of breath, abdominal pain, nausea or vomiting. He reports that he does not always drink a lot of fluid and has had elevated potassium in the past. Related Data Home Medications Medication Instructions Recorded Confirmed Lantus Solostar U-100 Insulin 33 - 34 units SUB-Q HS 08/29/17 03/21/20 aspirin 81 mg PO DAILY 12/30/17 03/21/20 atorvastatin [Lipitor] 10 mg PO DAILY 12/30/17 03/21/20 Eliquis 5 mg PO DAILY 12/31/17 03/21/20 pregabalin [Lyrica] 100 mg PO BID 09/30/19 03/21/20 Victoza 2-Jimmy 1.8 mg SUBCUT Q24H 10/14/19 03/21/20 acetaminophen 1,000 mg PO Q6H PRN 10/14/19 03/21/20 Allergies Allergy/AdvReac Type Severity Reaction Status Date / Time No Known Allergies Allergy Unverified 03/21/20 13:51 General Stated Complaint: GenMedical DAMION: 3 Review of Systems Constitutional Constitutional: Denies fever(s) and Denies weakness Eyes Eyes: Denies change in vision Cardiovascular Cardiovascular: Denies chest pain and Denies dyspnea Respiratory Respiratory: Denies cough and Denies dyspnea Gastrointestinal Gastrointestinal: Denies abdominal pain, Denies nausea and Denies vomiting Musculoskeletal Musculoskeletal: Denies back pain, Denies numbness and Denies tingling Integumentary/Breasts Skin/Breast: Denies rash Neurologic Neurologic: Denies numbness, Denies tingling and Denies weakness [facility] Medical History Cardiac murmur Colon polyps Type 2 diabetes mellitus Social History Smoking/Tobacco Use Status: Never Alcohol Intake: former Drug use: Never Substance use type: does not use Do you feel safe at home: Yes Do you feel safe in your relationship?: Yes Exam Const General: cooperative, healthy appearing, comfortable and no acute distress Orientation: alert, awake and oriented x3 HENMT Head: normal to inspection, normocephalic and atraumatic Face and sinus: normal facial exam Mouth: moist mucous membranes Eyes Conjunctivae: conjunctivae normal Sclera: sclerae normal Neck Neck: normal visual inspection, full ROM, trachea midline and supple Resp Effort & Inspection: normal respiratory effort and able to speak in complete sentences Auscultation: clear to auscultation bilaterally Cardio Rate: bradycardic (In the 50s) Rhythm: regular rhythm Heart Sounds: murmur GI Palpation: soft and nontender Skin General skin exam: no rashes or lesions noted Neuro General: patient alert, patient awake, moves all extremities and no focal motor deficits Speech: speech normal Sensory Exam: no sensory deficits noted Psych Appearance: grossly normal Mental Status: mental status grossly normal Course Vital Signs Vital signs: Vital Signs Temperature 36.8 C 03/21/20 13:46 Pulse 55 L 03/21/20 13:46 Respiratory Rate 18 03/21/20 13:46 Blood Pressure 150/56 H 03/21/20 13:46 Pulse Oximetry 99 03/21/20 13:46 Temperature 36.8 C 03/21/20 13:46 Temperature Source Skin 03/21/20 13:46 Pulse 48 L 03/21/20 14:11 Pulse 52 L 03/21/20 14:11 Respiratory Rate 17 03/21/20 14:11 Respiratory Effort Non-Labored 03/21/20 13:51 Blood Pressure 120/41 L 03/21/20 14:11 Blood Pressure Mean 60 03/21/20 14:11 Blood Pressure Position Sitting 03/21/20 13:46 Pulse Oximetry 97 03/21/20 14:11 Oxygen Delivery Method Room Air 03/21/20 13:46 Oxygen Flow Rate 0 03/21/20 13:46 Pain Level 0 03/21/20 13:46 Lab/Test Results Lab/Test Results: Laboratory Tests Range/Units 03/21/20 03/21/20 13:59 13:59 WBC (4.4-10.8) k/cumm 5.91 RBC (4.50-6.00) m/cumm 3.38 L Hgb (13.5-17.5) g/dL 9.9 L Hct (40.0-50.0) % 30.9 L MCV (80-95) fL 91.4 MCH (27.0-33.0) pg 29.3 MCHC (32.0-36.0) g/dL 32.0 RDW (11.8-14.1) % 13.8 Plt Count (130-400) x1000/uL 191 MPV (8.0-11.0) fL 10.7 Immature Gran % % 0.3 Neutrophils % 66.2 Lymphocytes % 20.0 Monocytes % 10.3 Eosinophils % 3.0 Basophils % 0.2 Absolute Neutrophils (1.2-6.7) k/cumm 3.91 Absolute Lymphocytes (1.2-3.4) k/cumm 1.18 L Absolute Monocytes (0.11-0.7) k/cumm 0.61 Absolute Eosinophils (0.0-0.7) k/cumm 0.18 Absolute Basophils (0.0-0.2) k/cumm 0.01 Differential Comment Rbc morph reviewed RBC Morphology Normal Sodium (136-145) mmol/L 137 Potassium (3.5-5.1) mmol/L 5.4 H Chloride (98-107) mmol/L 107 Carbon Dioxide (21.0-32.0) mmol/L 22.6 Anion Gap (3-11) mmol/L 7.4 BUN (7-18) mg/dL 45 H Creatinine (0.70-1.30) mg/dL 1.94 H Estimated GFR/1.73 m2 (mL/min/1.73m2) 34.80 Glucose (74-106) mg/dL 148 H Calcium (8.5-10.1) mg/dL 8.8 Magnesium (1.8-2.4) mg/dL 2.1 Total Bilirubin (0.2-1.0) mg/dL 0.3 AST (15-37) U/L 12 L ALT (16-63) U/L 16 Alkaline Phosphatase (46-116) U/L 86 Total Protein (6.4-8.2) g/dL 6.7 Albumin (3.4-5.0) g/dL 3.2 L
== END 2020-03-21 16:08 | disposition home or self-care (01) ==
LOC: ER 16:08
PROVIDERS: Emergency Provider Physician Assistant; PCP Family Medicine
DX: E87.5 Hyperkalemia (principal); R00.1 Bradycardia, unspecified; E11.22 Type 2 diabetes mellitus with diabetic chronic kidney disease; Z79.4 Long term (current) use of insulin; N18.9 Chronic kidney disease, unspecified
CPT/HCPCS: 36415; 80053; 93005; 99284; 83735; 85025; 93010

== ENCOUNTER 2020-03-23 11:14 | Outpatient (REF) | payer MEDICARE, BC, SELFPAY ==
[2020-03-23 20:48] LABS: Potassium 5.6 mmol/L (3.5-5.1)
== END 2020-03-23 11:34 ==
LOC: NCHCN 11:14
PROVIDERS: PCP Family Medicine; Visit Provider Family Medicine
DX: E87.5 Hyperkalemia (principal)
CPT/HCPCS: 84132

== ENCOUNTER 2020-03-29 13:14 | Outpatient (REF) | payer MEDICARE, BC, SELFPAY | END 2020-03-29 13:34 | LOC: NCHCN 13:14 | PROVIDERS: PCP Family Medicine; Visit Provider Family Medicine | DX: E87.5 Hyperkalemia (principal) | CPT/HCPCS: 84132 ==

== ENCOUNTER 2020-05-22 10:39 | Outpatient (REF) | payer MEDICARE, BC, SELFPAY ==
[2020-05-22 20:53] LABS: HCT 36.6 % (40.0-50.0); HGB 11.3 g/dL (13.5-17.5); MCH 28.1 pg (27.0-33.0); MCHC 30.9 % (32.0-36.0); MPV 11.7 fL (8.0-11.0); Platelet Count 228 10^3/uL (130-400); RBC 4.02 10^6/uL (4.36-5.78); RDW 13.7 % (11.8-14.1); RDW-SD 45.8 fL; WBC 6.32 10^3/uL (4.4-10.8)
[2020-05-22 21:13] LABS: ALT 15 U/L (16-63); AST 13 U/L (15-37); Albumin 3.1 g/dL (3.4-5.0); Alkaline Phosphatase 105 U/L (46-116); Anion Gap 10.3 mmol/L (3-11); BUN 26 mg/dL (7-18); Bilirubin, Total 0.2 mg/dL (0.2-1.0); CO2 24.7 mmol/L (21.0-32.0); CREATININE 1.95 mg/dL (0.70-1.30); Calcium 9.1 mg/dL (8.5-10.1); Chloride 106 mmol/L (98-107); Estimated GFR 34.49 (mL/min/1.73m2); Glucose 158 mg/dL (74-106); Potassium 4.7 mmol/L (3.5-5.1); Sodium 141 mmol/L (136-145); Total Protein 6.6 g/dL (6.4-8.2)
== END 2020-05-22 10:59 ==
LOC: NCHCN 10:39
PROVIDERS: PCP Family Medicine; Visit Provider Family Medicine
DX: E87.5 Hyperkalemia (principal); I10 Essential (primary) hypertension
CPT/HCPCS: 80053; 85027

== ENCOUNTER 2021-06-06 16:44 | Emergency (ER) | payer MEDICARE, BC, SELFPAY ==
[2021-06-06 16:51] VITALS: BP 193/81; PULSE 80; TEMP 36.8
--- NOTE | 2021-06-06 17:00 | ED.GENADUL_ITS ---
Discharge Plan Disposition Patient Disposition: HOME Condition: Good Discharge Details Clinical Impression: Cough Primary Care Provider: Belle Garcia ED Provider: Vale Ledezma Home Meds and New Rx's Prescriptions: Continued Lantus Solostar U-100 Insulin 100 UNIT/1 ML insulin pen 33 - 34 units Sub-Q HS RF: 0 atorvastatin [Lipitor] 10 MG tablet 10 mg PO DAILY RF: 0 aspirin 81 MG tablet,delayed release (DR/EC) 81 mg PO DAILY RF: 0 Eliquis 5 MG tablet 5 mg PO DAILY RF: 0 pregabalin [Lyrica] 100 mg Capsule 100 mg PO BID RF: 0 acetaminophen 500 mg Tablet 1,000 mg PO Q6H PRNRF: 0 Victoza 2-Jimmy 0.6 mg/0.1 mL (18 mg/3 mL) Pen Injector 1.8 mg SUBCUT Q24H RF: 0 Discharge Instructions Instructions: Acute Cough (ED) Additional Instructions: It is excellent that your symptoms are improving. Please continue to encourage hydration. You may use supportive care. Please quarantine until results have returned. If you develop chest pain, shortness of breath or other new/worsening symptoms please seek care urgently once again. Please follow-up with primary care in 1 week for reevaluation. Referrals: Belle Garcia [Primary Care Provider] - Discharge Data Discharge Date/Time-TO BE ENTERED AT DEPARTURE: 06/06/21 18:00 Medical Decision Making Patient is a pleasant 66-year-old male with past medical history pertinent for CAD status post CABG, presenting today with concern for potential Covid. He states that he has had a cough for the past few weeks. States overall symptoms are improving. Contacted primary care today who advised come here for evaluation and possible testing. He denies any shortness of breath. Denies any chest pain. No GI upset. No loss of taste or smell. States that he often gets symptoms like this in the fall and does not feel at work apical. On exam, patient appears nontoxic. Lungs are clear. Systolic cardiac murmur noted. He reports that this is typical. He is in no respiratory distress. Vital signs are stable. He is hypertensive he states that this is his baseline. He will follow up with primary care regarding his hypertension. I did advise outpatient Covid testing, will send testing here. He will quarantine until these results are back. All questions and concerns were addressed and he is in agreement this plan. HPI General Mode of arrival: ambulatory . Date/Time Provider Initiated Documentation: 06/06/21 17:00 . Limitations to Documentation: no limitations . Information obtained by: patient and RN notes reviewed . History of Present Illness 66 year old M presents to the emergency department with the chief complaint of cough, described as mild, Quality is described as other (patient denies any pain), and is localized to the chest. Patient reports no radiation. Patient started experiencing this week(s) (2) and it has been constant (states has been improving over the past few days). No relieving factors improve symptom(s), No exacerbating factors reported . Patient notes no other symptoms.. Patient did receive the following treatments prior to arrival, none Related Data Home Medications Medication Instructions Recorded Confirmed Lantus Solostar U-100 Insulin 33 - 34 units SUB-Q HS 08/29/17 03/21/20 aspirin 81 mg PO DAILY 12/30/17 03/21/20 atorvastatin [Lipitor] 10 mg PO DAILY 12/30/17 03/21/20 Eliquis 5 mg PO DAILY 12/31/17 03/21/20 pregabalin [Lyrica] 100 mg PO BID 09/30/19 03/21/20 Victoza 2-Jimmy 1.8 mg SUBCUT Q24H 10/14/19 03/21/20 acetaminophen 1,000 mg PO Q6H PRN 10/14/19 03/21/20 Allergies Allergy/AdvReac Type Severity Reaction Status Date / Time No Known Allergies Allergy Unverified 03/21/20 13:51 General DAMION: 3 Review of Systems Constitutional Constitutional: Reports as per HPI, Denies chills, Reports fatigue (improving), Denies fever(s) and Denies headache(s) ENT Ears, Nose, Mouth, and Throat: Reports as per HPI and Denies headache(s) Cardiovascular Cardiovascular: Reports as per HPI, Denies chest pain, Denies chest pain with activity, Denies lightheadedness and Denies dyspnea Respiratory Respiratory: Reports as per HPI, Reports cough, Denies hemoptysis and Denies dyspnea Gastrointestinal Gastrointestinal: Reports as per HPI, Denies abdominal pain, Denies change in bowel habits, Denies nausea and Denies vomiting Integumentary/Breasts Skin/Breast: Reports as per HPI and Denies rash Neurologic Neurologic: Reports as per HPI and Denies headache(s) Endocrine Endocrine: Reports fatigue (improving) [facility] Medical History (Updated 06/06/21 @ 17:13 by MELVIN Cruz) Cardiac murmur Colon polyps Type 2 diabetes mellitus Social History Smoking/Tobacco Use Status: Never Smoking risk assessment performed?: Yes Alcohol Intake: former Drug use: Never Substance use type: does not use Do you feel safe at home: Yes Do you feel safe in your relationship?: Yes Exam Const General: cooperative, healthy appearing, comfortable, no acute distress, well developed and well groomed Nutritional Appearance: average body habitus and well nourished Orientation: alert and awake [facility] Head: normal to inspection and normocephalic Ears: hearing grossly normal bilaterally and external ears normal General nose exam: external nose normal and nares normal Face and sinus: normal facial exam Mouth: oral mucosae normal, lip normal, tongue normal, oropharynx normal and moist mucous membranes Teeth and gingiva: dentition normal Throat: posterior oropharynx normal, tonsils normal and uvula midline Eyes General: appearance normal, both eyes and all related structures Neck Neck: normal visual inspection Resp Effort & Inspection: normal respiratory effort, able to speak in complete sentences and no respiratory distress Auscultation: clear to auscultation bilaterally, no rales, no rhonchi and no wheezes Cardio Rate: regular rate Rhythm: regular rhythm Heart Sounds: S1 normal and S2 normal Skin General skin exam: no rashes or lesions noted Neuro General: patient alert and patient awake Cognition: normal cognition Speech: speech normal Gait: normal gait Psych Appearance: grossly normal and well kempt Mental Status: mental status grossly normal Speech and Movement: speech and movement normal
[2021-06-06 17:06] VITALS: BP 177/82; PULSE 82; O2SAT 94
[2021-06-08 12:13] LABS: COVID-19 RT-PCR UVMMC Result Negative (Negative)
--- NOTE | 2021-06-09 07:47 | NUR.NOTE ---
Negative Covid result given to Xavier Pollack's . Verbalized understanding.Nursing Note:
== END 2021-06-06 18:00 | disposition home or self-care (01) ==
PROVIDERS: Emergency Provider Physician Assistant; PCP Family Medicine
DX: R05 Cough (principal); Z20.822 Contact with and (suspected) exposure to COVID-19
CPT/HCPCS: 99281; U0003; U0005

== ENCOUNTER 2022-02-01 18:27 | Outpatient (REF) | payer MEDICARE, BC, SELFPAY ==
[2022-02-01 14:33] LABS: BUN 64 mg/dL (7-18); CREATININE 3.1 mg/dL (0.70-1.30); Calcium 8.4 mg/dL (8.5-10.1); Chloride 106 mmol/L (98-107); Estimated GFR 20.14 (mL/min/1.73m2); Glucose 130 mg/dL (74-106); Potassium 5.6 mmol/L (3.5-5.1); Sodium 141 mmol/L (136-145)
== END 2022-02-01 18:28 | disposition home or self-care (01) ==
LOC: NCHCN 18:27
PROVIDERS: PCP Family Medicine; Visit Provider Family Medicine
DX: N18.9 Chronic kidney disease, unspecified (principal)
CPT/HCPCS: 80048

== ENCOUNTER 2022-02-26 19:25 | Outpatient (REF) | payer MEDICARE, BC, SELFPAY ==
[2022-02-26 14:33] LABS: Anion Gap 11.2 mmol/L (3-11); BUN 58 mg/dL (7-18); CO2 22.8 mmol/L (21.0-32.0); CREATININE 2.7 mg/dL (0.70-1.30); Calcium 8.9 mg/dL (8.5-10.1); Chloride 108 mmol/L (98-107); Estimated GFR 23.62 (mL/min/1.73m2); Glucose 130 mg/dL (74-106); Potassium 5.9 mmol/L (3.5-5.1); Sodium 142 mmol/L (136-145)
== END 2022-02-26 19:26 | disposition home or self-care (01) ==
LOC: NCHCN 19:25
PROVIDERS: PCP Family Medicine; Visit Provider Family Medicine
DX: N18.9 Chronic kidney disease, unspecified (principal)
CPT/HCPCS: 80048

== ENCOUNTER 2022-04-01 14:27 | Outpatient (REF) | payer MEDICARE, SELFPAY ==
[2022-04-01 14:32] LABS: Anion Gap 7.9 mmol/L (3-11); BUN 51 mg/dL (7-18); CO2 28.1 mmol/L (21.0-32.0); Calcium 8.4 mg/dL (8.5-10.1); Calculated LDL 59 mg/dL (<100); Chloride 104 mmol/L (98-107); Cholesterol 136 mg/dL (<200); Estimated GFR 20.91 (mL/min/1.73m2); Glucose 391 mg/dL (74-106); HDL Cholesterol 41 mg/dL (40-60); Potassium 4.8 mmol/L (3.5-5.1); Sodium 140 mmol/L (136-145); Triglyceride 183 mg/dL (<150)
== END 2022-04-01 14:28 | disposition home or self-care (01) ==
LOC: NCHCN 14:27
PROVIDERS: PCP Family Medicine; Visit Provider Family Medicine
DX: N18.9 Chronic kidney disease, unspecified (principal); E87.5 Hyperkalemia
CPT/HCPCS: 80048; 80061

== ENCOUNTER → 2023-02-10 09:41 | Outpatient (BNVA) | payer MEDICARE, SELFPAY | PROVIDERS: PCP Family Medicine; Referring Provider Family Medicine; Visit Provider Surgery | DX: Z12.11 Encounter for screening for malignant neoplasm of colon (principal); Z80.0 Family history of malignant neoplasm of digestive organs; Z76.82 Awaiting organ transplant status | CPT/HCPCS: 99243 ==

== ENCOUNTER 2023-02-21 07:01 | Day surgery (SDC) | payer MEDICARE, BC, SELFPAY ==
--- NOTE | 2023-02-20 19:19 | W.PM.DSUDISC ---
Date of service: 02/21/23 Time of Service: 08:41 Discharge Plan Disposition Patient Disposition: Home Condition: Good Discharge Details Reason For Visit: Screening colonoscopy Attending Provider: Estrada Mckeon Primary Care Provider: Belle Garcia Home Meds and New Rx's Prescriptions: Continued Levemir FlexPen 100 unit/mL (3 mL) insulin pen 30 unit subcut QAM Levemir FlexPen 100 unit/mL (3 mL) insulin pen 40 unit subcut QHS Novolin R FlexPen 100 unit/mL (3 mL) insulin pen 1 sliding scale dose subcut USEASDIRECTD clopidogrel 75 mg tablet 75 mg PO DAILY metoprolol tartrate 25 mg tablet 25 mg PO BID prazosin 2 mg capsule 2 mg PO BID aspirin 81 MG tablet,delayed release (DR/EC) 81 mg PO DAILY pregabalin [Lyrica] 100 mg Capsule 100 mg PO BID acetaminophen 500 mg Tablet 1,000 mg PO Q6H PRN Victoza 2-Jimmy 0.6 mg/0.1 mL (18 mg/3 mL) Pen Injector 1.8 mg SUBCUT Q24H Discontinued polyethylene glycol 3350 17 gram/dose powder 238 g PO ONCE Qty: 238 0RF Rx Instructions: take per colonoscopy instructions peg 3350-electrolytes [Golytely] 236-22.74-6.74 -5.86 gram recon soln 240 ml PO Q10M Qty: 4000 0RF Rx Instructions: until fecal effluent is clear Discharge Instructions Instructions: Colorectal Polyps (GEN) Additional Instructions: Xavier, we were able to complete your colonoscopy today without any problems. The quality of your preparation was excellent. I had great visualization. I did find 1 polyp. I removed it completely. I will be in touch when I have the results from the pathologist, with my next recommendations. In the meantime, I think it is fine to restart your clopidogrel (Plavix) tomorrow. If you have any questions at all, please feel free to give me a call. 1. If tolerated, consume a soft, low fiber diet for 1-2 days. [address] Do not drive, drink alcohol, operate machinery, make critical decisions, or do activities that require coordination or balance for 24 hours. 3. Because air was put into your colon during the procedure, expelling air from your rectum (passing gas or farting) is normal. 4. You may not have a bowel movement for 1-3 days because of the colonoscopy prep. This is normal. 5. Go directly to the emergency room if you notice any of the following: Develop chills (warm to touch), or if you have a thermometer and your temperature is above 101 Difficulty breathing or difficultly swallowing Persistent vomiting Severe abdominal pain, other than gas cramps Severe chest pain Black, tarry stools Any bleeding ? exceeding one tablespoon 6. Call your physician if the site where your intravenous was started becomes red, swollen, painful, and warm to touch. 7. Your physician has reviewed your pre-procedure medications. Please continue to take those medications as previously ordered. You will be given specific information/education regarding any changes to your medications before leaving. Activity:: Activity as Tolerated Diet:: As Tolerated Discharge Orders Discharge Orders: Discharge Order (Routine); Ordered 02/20/23 Ordered By: Estrada Mckeon DS: Diagnosis Discharge Diagnosis (1) Screen for colon cancer: Status: Acute Asessment and Plan: I will follow-up on polypectomy results
--- NOTE | 2023-02-20 19:21 | COLE_ITS ---
Date of service: 02/21/23 Time of Service: 08:44 Colonoscopy Report Date of procedure: 02/21/23 Pre-op diagnosis general: Screening colonoscopy Procedure: Colonoscopy with polypectomy Surgeon: Estrada Mckeon Anesthesia Type: General:No Airway Estimated blood loss (mL): 5 Pathology: other (Colon polyp from 120 cm) Complications: None Disposition: same day Indications: Charlie is a 67-year-old male with a single first-degree relative with colon cance r. He is undergoing screening colonoscopy. Prep: Gabi Procedure Start Time: 08:11 Procedure End Time: 08:34 Retraction Time: 17 Findings: 0.5 centimeter colon polyp at 120 cm Procedure Description: After the induction of monitored anesthetic care, and with the patient in left lateral decubitus position, I began by performing an external anorectal exam.? Perineum and skin were normal, as was the anal verge.? There was no not evidence of external hemorrhoids.? Next, I performed a digital rectal exam.? I did appreciate any abnormal findings.? Next, I advanced a colonoscope into the rectal vault.? I performed retroflexion.? This appeared normal.? Using insufflation, I then advanced the colonoscope beyond the rectal folds and into the sigmoid colon before advancing towards the cecum.? The quality of the prep was excellent.? The scope was noted to be in the cecum by identification of the ileocecal valve and appendiceal orifice.? I then began withdrawing the colonoscope using repeated irrigation as necessary for full evaluation of the colonic mucosa. Around 120 cm from the anal verge I identified a 0.5 cm polyp. ?It appeared sessile in character. ?I was able to remove this with a cold forcep polypectomy in 2 bites. ?I examined the site, and there was minimal bleeding. ?Once this was completed, I continued to withdraw the scope and examine the remainder of the colonic mucosa.?Once the scope was withdrawn to the level of the rectum, great care was taken to examine portions of the rectal folds.? Finally, the scope was withdrawn and the patient was brought to the same-day surgery recovery unit as the anesthetic wore off. ?The findings and instructions were shared with the patient prior to discharge.
--- NOTE | 2023-02-21 07:20 | W.ANESPRE ---
General Info Date of Service Date Performed: 02/21/23 Height: 6 ft Weight: 90.718 kg Body Mass Index (BMI): 27.1 Surgical Procedure: Operation Date: 02/21/23 08:20 Proposed Procedure Side Surgeon shannon Mckeon MD Meds Allergies and Home Medications Allergies Allergy/AdvReac Type Severity Reaction Status Date / Time No Known Allergies Allergy Verified 02/21/23 07:21 Home Medication Medication Instructions Recorded aspirin 81 mg tablet,delayed 81 mg PO DAILY 12/30/17 release pregabalin 100 mg capsule (Lyrica) 100 mg PO BID 09/30/19 acetaminophen 500 mg tablet 1,000 mg PO Q6H PRN 10/14/19 liraglutide 0.6 mg/0.1 mL (18 mg/3 1.8 mg subcut Q24H 10/14/19 mL) subcutaneous pen injector (Victoza 2-Jimmy) clopidogrel 75 mg tablet 75 mg PO DAILY 01/29/23 insulin regular human 100 unit/mL 1 sliding scale dose subcut 01/29/23 (3 mL) subcutaneous pen (Novolin R USEASDIRECTD FlexPen) metoprolol tartrate 25 mg tablet 25 mg PO BID 01/29/23 prazosin 2 mg capsule 2 mg PO BID 01/29/23 insulin detemir U-100 100 unit/mL 30 unit subcut QAM 02/10/23 (3 mL) subcutaneous pen (Levemir FlexPen) insulin detemir U-100 100 unit/mL 40 unit subcut QHS 02/10/23 (3 mL) subcutaneous pen (Levemir FlexPen) Current Visit Medications: Current Medications Generic Name Dose Route Start Last Admin Trade Name Freq PRN Reason Stop Dose Admin Hyoscyamine Sulfate 0.125 mg 02/20/23 19:19 Hyoscyamine 0.125 Mg Sl/Oral/Chew SL 03/22/23 19:18 DIRECTED PRN Ringer's Solution 1,000 mls @ 80 mls/hr 02/21/23 06:00 IV 03/22/23 23:59 INFUSION CARLA Ampicillin Sodium 2 gm/ Sodium 100 mls @ 300 mls/hr 02/21/23 06:00 Chloride IVPB 02/21/23 18:00 PREOP CARLA IV Miscellaneous Supplies 1 each 02/21/23 06:00 Iv Access IV 03/22/23 23:59 DIRECTED CARLA Ondansetron HCl 4 mg 02/20/23 19:19 Ondansetron 4 Mg/2 Ml Vial IVP 03/22/23 19:18 Q4H PRN PRN Nausea / Vomiting Sodium Chloride 0 ml 02/21/23 06:00 Normal Saline Flush 10 Ml Syr IV 03/22/23 23:59 PRN PRN Sodium Chloride 0 ml 02/21/23 06:00 Normal Saline 10 Ml Vial IJ 03/22/23 23:59 DIRECTED PRN Sterile Water 0 ml 02/21/23 06:00 Water,Injection,Sterile 10 Ml Vial IJ 03/22/23 23:59 DIRECTED PRN PFSH Active Problems Active Problems: Problem Status Onset Code Screen for colon cancer Z12.11 Cough R05 Kidney transplant candidate Z76.82 Critical lower limb ischemia I70.229 Urinary retention R33.9 Hypertension I10 Stage 4 chronic kidney disease due to diabetes mellitus E11.22, N18.4 CKD (chronic kidney disease) stage 4, GFR 15-29 ml/min N18.4 Family history of colon cancer in father Z80.0 Medical History Medical History (Updated 02/20/23 @ 19:20 by Estrada Mckeon MD) HUY (acute kidney injury) Amputated great toe of right foot Aortic stenosis Status post aortic valve replacement in 2020?bioprosthetic Arteriosclerotic cardiovascular disease (ASCVD) CAD (coronary artery disease) Cardiac murmur Cellulitis Colon polyps Decubitus ulcer of sacral region, stage 1 Delayed surgical wound healing of fkzxw-uvw-solx amputation stump History of left below knee amputation History of osteomyelitis Hyperlipidemia PVD (peripheral vascular disease) Type 2 diabetes mellitus Surgical History Surgical History S/P aortic valve replacement with bioprosthetic valve 2020 S/P CABG (coronary artery bypass graft) x4 2020 Tobacco Smoking/Tobacco Use Status: Never Alcohol Alcohol Intake: former Substance Use Substance use: Never Substance use type: does not use Vital Signs and Lab Results Point of Care Results Point of Care Results: Finger Stick Blood Glucose 90 02/21/23 07:16 Lab Results Blood Type / Crossmatch: No Data to Display Complete Blood Count: No Data to Display Complete Metabolic Panel: No Data to Display Liver Function Panel: No Data to Display Coagulation Panel: No Data to Display Cardiac Panel: No Data to Display Arterial Blood Gas: No Data to Display Venous Blood Gas: No Data to Display Pancreas Panel: No Data to Display Thyroid Panel: No Data to Display Infectious Disease: No Data to Display Blood Cultures: No Data to Display Toxicology Panel: No Data to Display Anesthesia Assessment and Plan Anesthesia History Personal History: No History of Anesthesia Complications Family History: No Family History of Anesthesia Complications Exercise Tolerance Exercise Tolerance: Metabolic Equivalents>4 Pertinent Negatives Pertinent Negatives: No Symptoms of GERD Cardiac & Pulmonary Exam Cardiac Exam: Heart Murmur Present Pulmonary Exam: Clear Bilateral Breath Sounds Implantable Cardiac Device Does patient have a Pacemaker or an ICD?: No Airway Exam Known Difficult Airway: No Mallampati Class: 2 Mouth Opening: Normal (> 3cm) Thyromental Distance: Greater than 3 cm Neck Range of Motion: Full ROM Neck Circumference: Normal Teeth Condition: Normal Dentition ASA Classification ASA Score: ASA 3 Emergency Case?: No NPO Status NPO Status: NPO Clears >2 hours, Solids >8 hours Anesthesia Plan Resuscitation Status: Full Code Anesthesia Technique: General Anesthesia Airway Planned: Natural Airway Monitors Used: Standard Monitors
[2023-02-21 07:21] VITALS: BMI 27.1
[2023-02-21 07:25] VITALS: BP 115/58; PULSE 65; RESP 18; TEMP 36.6; O2SAT 97
[2023-02-21] MEDS: Lactated Ringers 1,000 ML 80 ML IV (07:41)
[2023-02-21] MEDS: AMPICILLIN SODIUM 2 GM in Normal Saline 100 ML IVPB (08:10)
--- NOTE | 2023-02-21 08:26 | BOWEL_PTH ---
PATIENT: Xavier Salazar LOC: [facility] U#:[id number] AGE/SX: 67/M ROOM: RE02/21/[address]: Estrada Mckeon MD : [id number] BED: DIS: 02/21/2023 SPEC #: [id number] RECD: 02/21/23 11:19 STATUS: NICOLE REQ #: [id number] KAROL: 02/21/23 08:[address]: Estrada Mckeon DEPT: Surgical Specimen RECD BY: Mónica Chavez ENTERED: 02/21/23 11:19 SP TYPE: Bowel OTHR DR: Belle Garcia Tissues: 1 - BIOPSY BOWEL Procedures: GROSS AND MICRO LEVEL 4 Comments: [id number]
[2023-02-21 08:40] VITALS: BP 102/52; PULSE 59; RESP 18; TEMP 35.9; O2SAT 95
--- NOTE | 2023-02-21 08:47 | W.ANESPOSTOP ---
Postoperative Evaluation Date, Time and Location Date Performed: 02/21/23 Time Performed: 08:47 Patient Location: Day Surgery Unit Vital Signs Most Recent Imported Vital Signs: Most Recent Vital Signs Temp Pulse Resp BP Pulse Ox 35.9 C L 59 L 18 102/52 L 95 02/21/23 08:40 02/21/23 08:40 02/21/23 08:40 02/21/23 08:40 02/21/23 08:40 Pain Score Most Recent Pain Score: Most Recent Pain Score Pain Level 0 02/21/23 07:25 Assessment Mental Status: Awake (Alert & Oriented to Patient Baseline) Airway and Respiratory Function: Patent airway with normal (patient baseline) respiratory exam Cardiovascular Function: Hemodynamically Stable Hydration Status: Adequately Hydrated Nausea & Vomiting: No Nausea or Vomiting Pain: Pt. Denies Any Pain Peripheral Nerve Block: Patient did not receive a nerve block
[2023-02-21 08:55] VITALS: BP 118/59; PULSE 60; RESP 18; TEMP 36.3; O2SAT 96
[2023-02-21 09:28] VITALS: BP 119/61; PULSE 61; RESP 18; TEMP 36.6; O2SAT 97
== END 2023-02-21 09:35 | disposition home or self-care (01) ==
PROVIDERS: PCP Family Medicine; Visit Provider Surgery
PROC: 0DJD8ZZ Inspection of Lower Intestinal Tract, Via Natural or Artificial Opening Endoscopic (ICD-10-PCS; CPT 45378; principal; 2023-02-21 08:15)
DX: Z12.11 Encounter for screening for malignant neoplasm of colon (principal); D12.3 Benign neoplasm of transverse colon; Z80.0 Family history of malignant neoplasm of digestive organs
CPT/HCPCS: 45380; 88305; J0290

== ENCOUNTER 2023-03-27 13:11 | Outpatient (REF) | payer MEDICARE, BC, SELFPAY ==
[2023-03-27 15:15] LABS: HCT 36.2 % (40.0-50.0); HGB 11.8 g/dL (13.5-17.5); Lymphocytes % 25.7; MCH 29.1 pg (27.0-33.0); MCHC 32.6 % (32.0-36.0); MCV 89 fL (80-95); MPV 11.1 fL (8.0-11.0); Monocytes % 10.2; Neutrophils % 61.3; Platelet Count 206 10^3/uL (130-400); RBC 4.06 10^6/uL (4.36-5.78); RDW 13.8 % (11.8-14.1); RDW-SD 45.2 fL
[2023-03-27 15:16] LABS: Abs Immature Grans 0.02 10^3/uL (0.0-0.06); Absolute Basophil Count 0.03 10^3/uL (0.0-0.2); Absolute Eosinophil Count 0.13 10^3/uL (0.0-0.7); Absolute Lymphocyte Count 1.67 10^3/uL (1.2-3.4); Absolute Monocyte Count 0.66 10^3/uL (0.1-0.8); Absolute Neutrophil Count 3.99 10^3/uL (1.2-6.7); Basophils % 0.5; Immature Grans % 0.3
[2023-03-27 15:43] LABS: Albumin 3.6 g/dL (3.4-5.0); Anion Gap 12.7 mmol/L (3-11); BUN 79 mg/dL (7-18); CO2 25.3 mmol/L (21.0-32.0); Calcium 8.8 mg/dL (8.5-10.1); Chloride 108 mmol/L (98-107); Estimated GFR 14.99 (mL/min/1.73m2); Glucose 171 mg/dL (74-106); PHOSPHORUS 6.3 mg/dL (2.6-4.7); Potassium 4.5 mmol/L (3.5-5.1); Sodium 146 mmol/L (136-145)
[2023-03-27 15:49] LABS: CREATININE 4.1 mg/dL (0.70-1.30)
== END 2023-03-27 13:12 | disposition home or self-care (01) ==
LOC: NCHCN 13:11
PROVIDERS: PCP Family Medicine; Visit Provider Family Medicine
DX: N18.9 Chronic kidney disease, unspecified (principal)
CPT/HCPCS: 80048; 82040; 84100; 85025

== ENCOUNTER 2023-05-07 17:31 | Outpatient (REF) | payer MEDICARE, BC, SELFPAY | END 2023-05-07 17:32 | disposition home or self-care (01) | LOC: NCHCN 17:31 | PROVIDERS: PCP Family Medicine; Visit Provider Family Medicine | DX: N18.9 Chronic kidney disease, unspecified (principal); R39.89 Other symptoms and signs involving the genitourinary system | CPT/HCPCS: 87086 ==

== ENCOUNTER 2024-01-05 10:36 | Outpatient (REF) | payer MEDICARE, BC, SELFPAY ==
[2024-01-06 08:17] LABS: PSA, Diagnostic <0.1 ng/mL (<=6.5)
[2024-01-08 14:29] LABS: Testosterone, Total 11 ng/dL (240-950)
== END 2024-01-05 10:37 | disposition home or self-care (01) ==
LOC: NCHCN 10:36
PROVIDERS: PCP Family Medicine; Visit Provider Family Medicine
DX: C61 Malignant neoplasm of prostate (principal)
CPT/HCPCS: 84403; 84153

== ENCOUNTER → 2024-03-01 02:12 | Outpatient (CLI) | payer MEDICARE, BC, SELFPAY ==
--- NOTE | 2024-03-01 | DI.DEXA_ITS ---
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 COMPARISON: No exams were available for comparison FINDINGS: Performed on a Hologic unit. Lateral image: No compression fracture evident. 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 Range. Fracture risk is moderate-high for the hip. Less so for the lumbar spine and wrist. Note: Any spine fracture indicates 5x risk for subsequent spine fracture and 2x risk for subsequent h ip fracture. World Health Organization criteria for BMD interpretation classify patients: Normal...... T- Score at or above -1.0 Osteopenic... T- Score between -1.0 and -2.5 Osteoporosis... T-Score at or below -2.5
== END ==
PROVIDERS: PCP Family Medicine; Visit Provider Radiology Radiation Oncology
DX: Z79.52 Long term (current) use of systemic steroids (principal); Z13.820 Encounter for screening for osteoporosis; M81.0 Age-related osteoporosis without current pathological fracture
CPT/HCPCS: 77080; 96372; J0881

== ENCOUNTER 2024-03-01 05:55 | Outpatient (RCR) | payer MEDICARE, SELFPAY ==
[2024-03-01] MEDS: Darbepoetin 40 MCG SYR SC (08:55)
== END 2024-03-21 23:59 | disposition home or self-care (01) ==
LOC: INF 05:55
PROVIDERS: PCP Family Medicine; Visit Provider Family Medicine
DX: Z79.52 Long term (current) use of systemic steroids (principal); C61 Malignant neoplasm of prostate
CPT/HCPCS: 96372; J0881

== ENCOUNTER 2024-03-29 03:09 | Outpatient (RCR) | payer MEDICARE, BC, SELFPAY ==
[2024-03-29 10:23] LABS: HCT 33.7 % (40.0-50.0); HGB 11.2 g/dL (13.5-17.5)
[2024-03-29] MEDS: Darbepoetin 25 MCG SYR SC (10:40)
== END 2024-04-21 23:59 | disposition home or self-care (01) ==
LOC: INF 03:09
PROVIDERS: Internal Medicine; PCP Family Medicine; Visit Provider Family Medicine
DX: N18.4 Chronic kidney disease, stage 4 (severe) (principal); D63.1 Anemia in chronic kidney disease; C61 Malignant neoplasm of prostate
CPT/HCPCS: 36415; 96372; 85014; 85018; J0881

== ENCOUNTER 2024-04-01 16:33 | Emergency (ER) | payer MEDICARE, BC, SELFPAY ==
[2024-04-01 16:40] VITALS: BP 189/137; PULSE 67; RESP 20; TEMP 36.8; O2SAT 97
--- NOTE | 2024-04-01 16:45 | RT.EKG_ITS ---
APPROVED REPORT Exam: Resting ECG Reason for Exam: Vomiting, CAD Patient Location: E HR:89 bpm ECG Measurements Heart Rate 89 AXIS NV 182 P 27 QRSd 136 QRS 7 QT 421 T 24 QTc 512 Conclusion Sinus rhythm...normal P axis, V-rate 60- 99 Supraventricular bigeminy...bigeminy string>4 w/ SV complexes Right bundle branch block...QRSd>120, terminal axis(90,270) I have reviewed and interpreted ECG and agree with software generated interpretation.
--- NOTE | 2024-04-01 16:52 | W.ED.GENAD ---
Discharge Plan Disposition Patient Disposition: Home Condition: Stable Discharge Details Clinical Impression: Nausea & vomiting Primary Care Provider: Belle aGrcia ED Provider: Nuvia Johnson Home Meds and New Rx's Prescriptions: New ondansetron 4 mg tablet,disintegrating 4 mg PO Q8H PRN (Reason: nausea and vomiting) 4 Days Qty: 9 0RF Rx Instructions: Take 1 tablet up to 3 times daily as needed for nausea and vomiting 20 minutes prior to meals. Continued Levemir FlexPen 100 unit/mL (3 mL) insulin pen 30 unit subcut QAM Levemir FlexPen 100 unit/mL (3 mL) insulin pen 40 unit subcut QHS Novolin R FlexPen 100 unit/mL (3 mL) insulin pen 1 sliding scale dose subcut USEASDIRECTD clopidogrel 75 mg tablet 75 mg PO DAILY metoprolol tartrate 25 mg tablet 25 mg PO BID prazosin 2 mg capsule 2 mg PO BID aspirin 81 MG tablet,delayed release (DR/EC) 81 mg PO DAILY pregabalin [Lyrica] 100 mg Capsule 100 mg PO BID sodium bicarbonate 650 mg tablet 650 mg PO BID Patient Comments: TAKE 1 TABLET BY MOUTH TWICE A DAY zolpidem 5 mg tablet 5 mg PO QHS PRN Patient Comments: TAKE 1 TABLET BY MOUTH EVERY DAY AT BEDTIME NEEDED atorvastatin 20 mg tablet 20 mg PO DAILY Patient Comments: TAKE 1 TABLET BY MOUTH EVERY DAY furosemide 40 mg tablet 40 mg PO BID Patient Comments: TAKE 1 TABLET BY MOUTH TWICE A DAY amlodipine 10 mg tablet 10 mg PO DAILY Patient Comments: TAKE 1 TABLET BY MOUTH EVERY DAY insulin glargine [Lantus Solostar U-100 Insulin] 100 unit/mL (3 mL) insulin pen 30 unit SUBCUT QAM Patient Comments: INJECT 30-60 UNIT SUBCUTANEOUSLY 2 TIMES A DAY 26 units QHS acetaminophen 500 mg Tablet 1,000 mg PO Q6H PRN Victoza 2-Jimmy 0.6 mg/0.1 mL (18 mg/3 mL) Pen Injector 1.8 mg SUBCUT Q24H Discharge Instructions Instructions: Nausea and Vomiting, Adult ED Additional Instructions: Please take the nausea medication 20-30 min before taking your medications or eating or drinking anything. No evidence of heart attack today, your kidney functions are the same they were 1 year ago. Negative COVID flu RSV. Follow up with primary care provider in 3-5 days. Return to ED sooner if any worsening or concerns. Increase oral fluids. Referrals: Belle Garcia [Primary Care Provider] - 3 days HPI General Mode of arrival: ambulatory. Date/Time Provider Initiated Documentation: 04/01/24 16:42. Limitations to Documentation: no limitations. Information obtained by: patient, RN notes reviewed and old records reviewed. HPI Narrative: 68-year-old male presents to the ER with a chief complaint of nausea vomiting, chills for the last 3 to 4 days. Patient is chronically ill he does have a history of insulin-dependent diabetes mellitus, stage IV chronic kidney disease, CAD, hyperlipidemia aortic stenosis peripheral vascular disease and left below the knee amputation, he also has status post CABG aortic valve replacement with bioprosthetic valve. reports intermittent headaches, some shortness of breath, mild dysuria, patient receives infusions of Alpha Darbepoetin for chronic anemia. He is followed by [facility]. Related Data Home Medications ?Medication ?Instructions ?Recorded ?Confirmed aspirin 81 mg tablet,delayed 81 mg PO DAILY 12/30/17 04/01/24 release pregabalin 100 mg capsule (Lyrica) 100 mg PO BID 09/30/19 04/01/24 acetaminophen 500 mg tablet 1,000 mg PO Q6H PRN 10/14/19 04/01/24 liraglutide 0.6 mg/0.1 mL (18 mg/3 1.8 mg subcut Q24H 10/14/19 04/01/24 mL) subcutaneous pen injector (Victoza 2-Jimmy) clopidogrel 75 mg tablet 75 mg PO DAILY 01/29/23 04/01/24 insulin regular human 100 unit/mL 1 sliding scale dose subcut 01/29/23 04/01/24 (3 mL) subcutaneous pen (Novolin R USEASDIRECTD FlexPen) metoprolol tartrate 25 mg tablet 25 mg PO BID 01/29/23 04/01/24 prazosin 2 mg capsule 2 mg PO BID 01/29/23 04/01/24 insulin detemir U-100 100 unit/mL 30 unit subcut QAM 02/10/23 04/01/24 (3 mL) subcutaneous pen (Levemir FlexPen) insulin detemir U-100 100 unit/mL 40 unit subcut QHS 02/10/23 04/01/24 (3 mL) subcutaneous pen (Levemir FlexPen) amlodipine 10 mg tablet 10 mg PO DAILY 04/01/24 04/01/24 atorvastatin 20 mg tablet 20 mg PO DAILY 04/01/24 04/01/24 furosemide 40 mg tablet 40 mg PO BID 04/01/24 04/01/24 insulin glargine 100 unit/mL (3 30 unit subcut QAM 04/01/24 04/01/24 mL) subcutaneous pen (Lantus Solostar U-100 Insulin) ondansetron 4 mg disintegrating 4 mg PO Q8H PRN nausea and 04/01/24 tablet vomiting 4 days #9 tabs sodium bicarbonate 650 mg tablet 650 mg PO BID 04/01/24 04/01/24 zolpidem 5 mg tablet 5 mg PO QHS PRN 04/01/24 04/01/24 Previous Rx's ?Medication ?Instructions ?Recorded ondansetron 4 mg disintegrating 4 mg PO Q8H PRN nausea and 04/01/24 tablet vomiting 4 days #9 tabs Allergies Allergy/AdvReac Type Severity Reaction Status Date / Time No Known Allergies Allergy Verified 04/01/24 16:42 General Stated Complaint: Nausea/Vomit/Diar DAMION: 3 Review of Systems All systems reviewed & are unremarkable except as noted in HPI and below Constitutional Constitutional: Reports body ache(s), Reports chills, Reports fatigue, Reports fever(s), Reports headache(s) and Reports lethargy ENT Ears, Nose, Mouth, and Throat: Reports headache(s), Denies sinus pain and Denies sore throat Cardiovascular Cardiovascular: Denies chest pain and Reports dyspnea Respiratory Respiratory: Denies change in phlegm color, Denies cough and Reports dyspnea Gastrointestinal Gastrointestinal: Reports fecal incontinence (1 episode), Reports nausea and Reports vomiting Genitourinary Genitourinary: Reports dysuria Integumentary/Breasts Skin/Breast: Reports unusual bruising Neurologic Neurologic: Reports headache(s) Endocrine Endocrine: Reports fatigue Exam Narrative Exam Narrative: Constitutional: Alert and oriented x3. Appears stated age. Normal body habitus. Patient appears chronically ill. Head: Normocephalic, no trauma. Eyes: Pupils PERRL, Red reflex noted, EOM's intact. Eyelids symmetrical without lesions, discharge, or swelling. ENT: Bilateral TM's WNL, External ear normal to inspection, no mastoid TTP, swelling, or erythema, Nasal turbinates WNL, no nasal discharge. Normal dentition, Posterior pharynx WNL, no exudate. Chest: RRR, Normal S1, S2, distal pulses intact. Resp: Lungs clear to auscultation bilaterally, no wheezes, rales, or rhonchi. Abdomen: Soft, non-distended, Normoactive bowel sounds all 4 quads. Nontender to palpation all 4 quadrants. Musculoskeletal: Unable to assess gait, does have a left below the knee amputation, moves all 3 extremities without difficulty. Skin: Does have some bruising noted to his right forearm, capillary refill less than 2 sec. Neurologic: Cranial nerves II-XII intact. Alert and oriented x 3. Motor: No deficits noted. Sensory: Intact bilaterally all 4 extremities. Hematologic/Lymphatic: no lymphadenopathy. Course Vital Signs Vital signs: Vital Signs Temperature 36.8 C 04/01/24 16:40 Pulse 67 04/01/24 16:40 Respiratory Rate 20 04/01/24 16:40 Blood Pressure 189/137 H 04/01/24 16:40 Pulse Oximetry 97 04/01/24 16:40 Temperature 36.8 C 04/01/24 16:40 Temperature Source Skin 04/01/24 16:40 Pulse 67 04/01/24 16:40 Respiratory Rate 20 04/01/24 16:40 Blood Pressure 189/137 H 04/01/24 16:40 Blood Pressure Position Sitting 04/01/24 16:40 Pulse Oximetry 97 04/01/24 16:40 Oxygen Delivery Method Room Air 04/01/24 16:40 Oxygen Flow Rate 0 04/01/24 16:40 Pain Level 0 04/01/24 16:40 Lab/Test Results Lab/Test Results: 04/01/24 16:45 Blood Blood Culture - Pending 04/01/24 16:45 Blood Blood Culture - Pending Medical Decision Making 68-year-old male presents to the ER with a chief complaint of nausea vomiting, chills for the last 3 to 4 days. Patient is chronically ill he does have a history of insulin-dependent diabetes mellitus, stage IV chronic kidney disease, CAD, hyperlipidemia aortic stenosis peripheral vascular disease and left below the knee amputation, he also has status post CABG aortic valve replacement with bioprosthetic valve. reports intermittent headaches, some shortness of breath, mild dysuria, patient receives infusions of Alpha Darbepoetin for chronic anemia. He is followed by [facility]. Workup ordered including CBC CMP lactate, blood cultures x 2, fluid swab for Zofran 500 cc normal saline. Differential diagnose includes but limited to bacterial versus viral illness, DKA, hyperglycemia, electrolyte imbalance, UTI ,does have a history of hyperkalemia. EKG was reviewed by Dr. Borges and myself ER attending, EKG does show right bundle branch block with bigeminy, does have a history of right bundle branch block, old EKG available for review, please see official report, patient is not c/o chest pain at this time. On patient reevaluation he reports he feels somewhat better is requesting p.o. fluids. Patient given tessie lissette awaiting serial troponin. Initial troponin 56. Patient denies any chest pain shortness of breath. He reports that his nausea is largely resolved at this time. Discussed his labs with him and his . Fluvid is negative. Repeat EKG is unchanged, patient is hypertensive he has been unable to take any of his home meds over the last few days due to vomiting. He is tolerating p.o. without difficulty or any further emesis at this time. Repeat troponin within normal limits. Patient discharged to home Zofran. All his questions were answered to the best my ability. Patient is hypertensive upon discharge however he has not taken his blood pressure medications. Did instruct him to take his normal medications upon arrival to his home. Instructed to call infusion center or his department team tomorrow for follow-up. He verbalizes understanding. This text was generated using [employer] dictation system, please disregard any oddities of phrase or misspellings. Medical Records Medical records reviewed: Yes I reviewed the patient's medical records. Lab Data Lab results reviewed: Yes I reviewed the patient's lab results. Labs: 04/01/24 17:34 Blood Blood Culture - Pending 04/01/24 17:15 Blood Blood Culture - Pending Laboratory Tests Range/Units 04/01/24 04/01/24 04/01/24 17:15 17:47 18:17 WBC (4.4-10.8) 10^3/uL 6.11 RBC (4.36-5.78) 10^6/uL 4.14 L Hgb (13.5-17.5) g/dL 12.5 L Hct (40.0-50.0) % 36.7 L MCV (80-95) fL 89 MCH (27.0-33.0) pg 30.2 MCHC (32.0-36.0) % 34.1 RDW (11.8-14.1) % 12.8 Plt Count (130-400) 10^3/uL 189 MPV (8.0-11.0) fL 10.0 Immature Gran % % 0.8 Neutrophils % % 71.8 Lymphocytes % % 18.0 Monocytes % % 8.8 Eosinophils % % 0.3 Basophils % % 0.3 Nucleated RBC % (0.0-0.3) % 0.0 Absolute Neutrophils (1.2-6.7) 10^3/uL 4.38 Absolute Lymphocytes (1.2-3.4) 10^3/uL 1.10 L Absolute Monocytes (0.1-0.8) 10^3/uL 0.54 Absolute Eosinophils (0.0-0.7) 10^3/uL 0.02 Absolute Basophils (0.0-0.2) 10^3/uL 0.02 VBG Lactate (0.6-1.4) mmol/L 1.1 Sodium (136-145) mmol/L 143 Potassium (3.5-5.1) mmol/L 3.9 Chloride (98-107) mmol/L 108 H Carbon Dioxide (21.0-32.0) mmol/L 22.0 Anion Gap (3-11) mmol/L 13.0 H BUN (7-18) mg/dL 53 H Creatinine (0.70-1.30) mg/dL 4.1 H* Est GFR (CKD-EPI 2020) (mL/min/1.73m2) 14.89 Glucose (74-106) mg/dL 115 H Calcium (8.5-10.1) mg/dL 9.5 Magnesium (1.8-2.4) mg/dL 1.8 Total Bilirubin (0.2-1.0) mg/dL 0.35 AST (15-37) U/L 17 ALT (16-63) U/L 24 Alkaline Phosphatase (46-116) U/L 87 Troponin I (< or =60) ng/L 56 Total Protein (6.4-8.2) g/dL 7.9 Albumin (3.4-5.0) g/dL 3.8 Urine Color (Yellow) Yellow Urine Clarity (Clear) Clear Urine pH (5-8) 6.5 Ur Specific [place] (1.005-1.025) 1.025 Urine Protein (Neg-Trace) mg/dL >=300 H Urine Ketones (Negative) mg/dL Trace H Urine Blood (Negative) Moderate H Urine Nitrite (Negative) Negative Urine Bilirubin (Negative) Negative Urine Urobilinogen (Up to 0.2) mg/dL 0.2 Ur Leukocyte Esterase (Negative) Negative Urine RBC (0-2) HPF 5-10 H Urine WBC (0-5) HPF 0-2 Ur Epithelial Cells (Negative) HPF Rare Urine Crystals (Negative) HPF Negative Urine Bacteria (Negative) HPF Negative Urine Casts (Negative) LPF Negative Urine Mucus (Negative) Trace Ur Culture Indicated? No Urine Glucose (Negative) mg/dL 100 H COVID-19 Source Nasopharynx SARS-CoV-2 (PCR) (Negative) Negative Influenza Type A (PCR) (Negative) Negative Influenza Type B (PCR) (Negative) Negative RSV (PCR) (Negative) Negative Quality:SDOH Health Related Social Needs: No Data to Display PFSH All Active Problems (Updated 04/01/24 @ 20:15 by Nuvia Johnson NP) Nausea & vomiting (Acute) Tubular adenoma (Acute ~02/21/23) Screen for colon cancer (Acute) Cough (Acute) Kidney transplant candidate (Acute) Critical lower limb ischemia (Acute) Urinary retention (Acute) Hypertension (Chronic) Stage 4 chronic kidney disease due to diabetes mellitus (Acute) CKD (chronic kidney disease) stage 4, GFR 15-29 ml/min (Acute) Family history of colon cancer in father (Acute) Medical History History of osteomyelitis CAD (coronary artery disease) Arteriosclerotic cardiovascular disease (ASCVD) Aortic stenosis Status post aortic valve replacement in 2019?bioprosthetic Hyperlipidemia Cellulitis PVD (peripheral vascular disease) Delayed surgical wound healing of gfomn-ida-hiur amputation stump HUY (acute kidney injury) Decubitus ulcer of sacral region, stage 1 Amputated great toe of right foot Colon polyps Cardiac murmur Type 2 diabetes mellitus Surgical History History of colonoscopy with polypectomy (~02/21/23) S/P aortic valve replacement with bioprosthetic valve 2020 S/P CABG (coronary artery bypass graft) x4 2020 History of left below knee amputation Social History Smoking/Tobacco Use Status: Never Smoking risk assessment performed?: Yes Alcohol Intake: former Drug use: Never Substance use type: does not use Do you feel safe at home: Yes Do you feel safe in your relationship?: Yes Additional [facility] history[facility]
[2024-04-01 17:31] LABS: Abs Immature Grans 0.05 10^3/uL (0.0-0.06); Absolute Basophil Count 0.02 10^3/uL (0.0-0.2); Absolute Eosinophil Count 0.02 10^3/uL (0.0-0.7); Absolute Monocyte Count 0.54 10^3/uL (0.1-0.8); Absolute Neutrophil Count 4.38 10^3/uL (1.2-6.7); Basophils % 0.3 %; Eosinophils % 0.3 %; HCT 36.7 % (40.0-50.0); HGB 12.5 g/dL (13.5-17.5); Immature Grans % 0.8 %; Lactate 1.1 mmol/L (0.6-1.4); MCH 30.2 pg (27.0-33.0); MCHC 34.1 % (32.0-36.0); MCV 89 fL (80-95); Monocytes % 8.8 %; Neutrophils % 71.8 %; Platelet Count 189 10^3/uL (130-400); RBC 4.14 10^6/uL (4.36-5.78); RDW 12.8 % (11.8-14.1); RDW-SD 41.7 fL; WBC 6.11 10^3/uL (4.4-10.8)
[2024-04-01 17:49] LABS: ALT 24 U/L (16-63); AST 17 U/L (15-37); Albumin 3.8 g/dL (3.4-5.0); Alkaline Phosphatase 87 U/L (46-116); BUN 53 mg/dL (7-18); Bilirubin, Total 0.35 mg/dL (0.2-1.0); Calcium 9.5 mg/dL (8.5-10.1); Chloride 108 mmol/L (98-107); Estimated GFR 14.89 (mL/min/1.73m2); Glucose 115 mg/dL (74-106); Magnesium 1.8 mg/dL (1.8-2.4); Potassium 3.9 mmol/L (3.5-5.1); Sodium 143 mmol/L (136-145); Total Protein 7.9 g/dL (6.4-8.2)
[2024-04-01 17:52] LABS: CREATININE 4.1 mg/dL (0.70-1.30)
[2024-04-01] MEDS: Ondansetron 4 MG/2 ML VIAL IVP (18:05)
[2024-04-01] MEDS: Normal Saline 500 ML IV (18:05)
[2024-04-01 18:14] LABS: Bilirubin Negative (Negative); Blood Moderate (Negative); Clarity Clear (Clear); Glucose 100 mg/dL (Negative); Ketones Trace mg/dL (Negative); Leukocyte Esterase Negative (Negative); Nitrite Negative (Negative); Specific Gravity 1.025 (1.005-1.025); Urobilinogen 0.2 mg/dL (Up to 0.2); pH 6.5 (5-8)
[2024-04-01 18:21] LABS: Epithelial Cells Rare HPF (Negative); WBC 0-2 HPF (0-5)
[2024-04-01 18:22] LABS: Bacteria Negative HPF (Negative); C & S Indicated? No; Casts Negative LPF (Negative); Crystals Negative HPF (Negative); Mucus Trace (Negative)
[2024-04-01 18:28] VITALS: BP 186/76; PULSE 64; RESP 18; O2SAT 98
[2024-04-01 18:51] LABS: Troponin I 56 ng/L (< or =60)
[2024-04-01 19:04] LABS: COVID-19 PCR Negative (Negative); Influenza A PCR Negative (Negative); Influenza B PCR Negative (Negative); RSV PCR Negative (Negative)
[2024-04-01 19:05] LABS: Source Nasopharynx
--- NOTE | 2024-04-01 19:45 | RT.EKG_ITS ---
APPROVED REPORT Exam: Resting ECG Reason for Exam: repeat Patient Location: E HR:76 bpm ECG Measurements Heart Rate 76 AXIS IA 183 P -17 QRSd 137 QRS -15 QT 430 T 8 QTc 486 Conclusion Sinus rhythm 76 RBBB no stemi
[2024-04-01 20:17] LABS: Troponin I 56 ng/L (< or =60)
[2024-04-01] MEDS: Ondansetron O.D.T. 4 MG TABEF, 3 TABS/BTL PO (20:19)
[2024-04-01 20:21] VITALS: BP 201/89; PULSE 73; RESP 14; TEMP 36.7; O2SAT 97
[2024-04-01 20:50] VITALS: BP 168/86; PULSE 76; RESP 14; TEMP 37.2; O2SAT 98
--- NOTE | 2024-04-06 20:12 | W.ED.FU ---
Follow Up Plan: pt made aware regarding positive blood culture. pt still sick and vomiting, recommended return to ED tonight. they will present for reassessment per Jaki, pt's .
== END 2024-04-01 19:45 | disposition home or self-care (01) ==
PROVIDERS: Emergency Provider Registered Nurse Emergency; PCP Family Medicine
DX: R11.2 Nausea with vomiting, unspecified (principal); E11.22 Type 2 diabetes mellitus with diabetic chronic kidney disease; N18.4 Chronic kidney disease, stage 4 (severe); I10 Essential (primary) hypertension
CPT/HCPCS: 36415; 80053; 87040; 87637; 93005; 96361; 96374; 99284; 81003; 81015; 83605; 83735; 84484; 85025; 93010; 99283; J2405

== ENCOUNTER 2024-04-07 09:10 | Inpatient (IN) | payer MEDICARE, BC, SELFPAY ==
--- NOTE | 2024-04-07 | DI.RAD_ITS ---
Exam(s) XR FOOT RT COMPLETE EXAM: XR FOOT RT COMPLETE CLINICAL HISTORY: wound with drainage in the setting of GPR bacterem. TECHNIQUE: 2D digital imaging was performed. Three views. COMPARISON: CR RIGHT FOOT COMPLETE from 10/07/2017 FINDINGS: BONES: Amputation of the 5th toe to the level of the mid metatarsal. Chronic appearing deformity of the 5th toe. Chronic appearing deformity with prot of the apparent resection of the distal aspect of the proximal phalanx of the 2nd toe as well as adjacent aspect of the middle phalanx. Resection of the distal phalanx of the great toe and distal aspect of the proximal phalanx. Postsurgical fusion o f the middle and proximal phalanges of the 4th toe. Erosion at the tip of the distal phalanx of the 4th toe. No acute fracture is present. No bony destructive lesion is seen. Prominent heel spurs. JOINTS: No dislocation present. SOFT TISSUE: Edema. Vascular calcifications. IMPRESSION: Erosion at the distal phalanx of the 4th toe may represent osteomyelitis. Resection of the distal ph alanx and and distal aspect of the proximal phalanx of the great toe without definite acute erosion a lthough this is difficult to determine without recent comparisons or history. DATA REPOSITORY: RADIATION DOSE DELIVERED:
[2024-04-07 09:26] VITALS: BP 173/62; PULSE 57; RESP 16; TEMP 36.6; O2SAT 100
--- NOTE | 2024-04-07 10:00 | RT.EKG_ITS ---
APPROVED REPORT Exam: Resting ECG Reason for Exam: bacteremia, valve replacement, consider endocardit Patient Location: E HR:63 bpm ECG Measurements Heart Rate 63 AXIS NJ 199 P 42 QRSd 146 QRS -5 QT 448 T 44 QTc 458 Conclusion Sinus rhythm...normal P axis, V-rate 60- 99 Right bundle branch block...QRSd>120, terminal axis(90,270)
--- NOTE | 2024-04-07 10:00 | DI.RAD_ITS ---
Exam(s) XR CHEST 2V PA LATERAL EXAM: XR CHEST 2V PA LATERAL CLINICAL HISTORY: bacteremia. TECHNIQUE: 2D digital imaging was performed. COMPARISON: CR PORTABLE AP CHEST, POST LINE from 12/29/2017 FINDINGS: 2 views: There are sternotomy wires. Also prosthetic aortic valve. Mild cardiomegaly. No infiltrates. No pleural effusions. No pulmonary edema. IMPRESSION: No acute pulmonary findings.Sternotomy wires and prosthetic aortic valve noted. DATA REPOSITORY: RADIATION DOSE DELIVERED:
--- NOTE | 2024-04-07 10:10 | W.ED.GENAD ---
Discharge Plan Disposition Patient Disposition: Admit to [facility] Condition: Stable Discharge Details Chief Complaint: Nausea/Vomit/Diar Clinical Impression: Bacteremia, Chronic kidney disease Primary Care Provider: Belle Garcia ED Provider: Homar Arteaga Home Meds and New Rx's Prescriptions: No Action Levemir FlexPen 100 unit/mL (3 mL) insulin pen 30 unit subcut QAM Patient Comments: none today r/t hypoglycemia Levemir FlexPen 100 unit/mL (3 mL) insulin pen 40 unit subcut QHS Patient Comments: none today r/t hypoglycemia Novolin R FlexPen 100 unit/mL (3 mL) insulin pen 1 sliding scale dose subcut USEASDIRECTD Patient Comments: none today r/t hypoglycemia clopidogrel 75 mg tablet 75 mg PO DAILY metoprolol tartrate 25 mg tablet 25 mg PO BID prazosin 2 mg capsule 2 mg PO BID aspirin 81 MG tablet,delayed release (DR/EC) 81 mg PO DAILY pregabalin [Lyrica] 100 mg Capsule 100 mg PO BID sodium bicarbonate 650 mg tablet 650 mg PO BID Patient Comments: TAKE 1 TABLET BY MOUTH TWICE A DAY zolpidem 5 mg tablet 5 mg PO QHS PRN Patient Comments: TAKE 1 TABLET BY MOUTH EVERY DAY AT BEDTIME NEEDED atorvastatin 20 mg tablet 20 mg PO DAILY Patient Comments: TAKE 1 TABLET BY MOUTH EVERY DAY furosemide 40 mg tablet 40 mg PO BID Patient Comments: TAKE 1 TABLET BY MOUTH TWICE A DAY amlodipine 10 mg tablet 10 mg PO DAILY Patient Comments: TAKE 1 TABLET BY MOUTH EVERY DAY insulin glargine [Lantus Solostar U-100 Insulin] 100 unit/mL (3 mL) insulin pen 30 unit SUBCUT QAM Patient Comments: INJECT 30-60 UNIT SUBCUTANEOUSLY 2 TIMES A DAY 26 units QHS acetaminophen 500 mg Tablet 1,000 mg PO Q6H PRN Victoza 2-Jimmy 0.6 mg/0.1 mL (18 mg/3 mL) Pen Injector 1.8 mg SUBCUT Q24H HPI General Mode of arrival: ambulatory. Date/Time Provider Initiated Documentation: 04/07/24 09:43. Limitations to Documentation: no limitations. Information obtained by: patient. HPI Narrative: 69yo male with multiple chronic medical problems including IDDM, stage IV chronic kidney disease, coronary artery disease, status post CABG, hyperlipidemia, status post aortic valve replacement with bioprosthetic valve, peripheral vascular disease, left below the knee amputation, prostate cancer on Lupron, returns the ER today for positive blood culture. Patient notes he started [place] symptoms [place] [id number]. He was seen here in the emergency ferment on 69 and had diagnostic workup including labs and blood culture. Labs on day of service were reassuring. COVID testing was negative. He was discharged home with plan for outpatient follow-up. /2 blood culture growing gram-positive rods as a preliminary result. Patient returns today noting continues to feel not great. He notes low energy. He has hot/cold spells and has felt feverish at times. He does not have a thermometer at home. Patient denies urinary symptoms. He does have mild headache with no neck pain or stiffness. No chest pain or shortness of breath. No cough. Patient does have a chronic wound right great toe that is followed by vascular. His cares for this wound and notes it has been looking pretty good recently. Related Data Home Medications ?Medication ?Instructions ?Recorded ?Confirmed aspirin 81 mg tablet,delayed 81 mg PO DAILY 12/30/17 04/07/24 release pregabalin 100 mg capsule (Lyrica) 100 mg PO BID 09/30/19 04/07/24 acetaminophen 500 mg tablet 1,000 mg PO Q6H PRN 10/14/19 04/07/24 liraglutide 0.6 mg/0.1 mL (18 mg/3 1.8 mg subcut Q24H 10/14/19 04/07/24 mL) subcutaneous pen injector (Victoza 2-Jimmy) clopidogrel 75 mg tablet 75 mg PO DAILY 01/29/23 04/07/24 insulin regular human 100 unit/mL 1 sliding scale dose subcut 01/29/23 04/07/24 (3 mL) subcutaneous pen (Novolin R USEASDIRECTD FlexPen) metoprolol tartrate 25 mg tablet 25 mg PO BID 01/29/23 04/07/24 prazosin 2 mg capsule 2 mg PO BID 01/29/23 04/07/24 insulin detemir U-100 100 unit/mL 30 unit subcut QAM 02/10/23 04/07/24 (3 mL) subcutaneous pen (Levemir FlexPen) insulin detemir U-100 100 unit/mL 40 unit subcut QHS 02/10/23 04/07/24 (3 mL) subcutaneous pen (Levemir FlexPen) amlodipine 10 mg tablet 10 mg PO DAILY 04/01/24 04/07/24 atorvastatin 20 mg tablet 20 mg PO DAILY 04/01/24 04/07/24 furosemide 40 mg tablet 40 mg PO BID 04/01/24 04/07/24 insulin glargine 100 unit/mL (3 30 unit subcut QAM 04/01/24 04/07/24 mL) subcutaneous pen (Lantus Solostar U-100 Insulin) sodium bicarbonate 650 mg tablet 650 mg PO BID 04/01/24 04/07/24 zolpidem 5 mg tablet 5 mg PO QHS PRN 04/01/24 04/07/24 Allergies Allergy/AdvReac Type Severity Reaction Status Date / Time No Known Allergies Allergy Verified 04/07/24 09:25 General Stated Complaint: Nausea/Vomit/Diar DAMION: 3 Review of Systems All systems reviewed & are unremarkable except as noted in HPI and below Constitutional Constitutional: Reports fatigue, Reports fever(s), Reports headache(s) and Reports lethargy ENT Ears, Nose, Mouth, and Throat: Reports headache(s) Respiratory Respiratory: Denies cough Gastrointestinal Gastrointestinal: Denies vomiting Neurologic Neurologic: Reports headache(s) Endocrine Endocrine: Reports fatigue Exam Const General: cooperative and no acute distress HENMT Mouth: moist mucous membranes Eyes Conjunctivae: normal conjunctivae Sclera: normal sclerae Resp Auscultation: clear to auscultation bilaterally, no rales, no rhonchi and no wheezes Cardio Rate: regular rate and not tachycardic Rhythm: regular rhythm Heart Sounds: murmur systolic GI Palpation: soft, not firm, no guarding, no masses, not rigid and nontender Skin General skin exam: no rashes or lesions noted Neuro General: patient alert, patient awake and tone normal Extrem Other: LLE: BKA RLE: great toe with healing wound, no erythema or discharge, nontender Psych Appearance: grossly normal Mental Status: mental status grossly normal Course Vital Signs Vital signs: Vital Signs Temperature 36.6 C 04/07/24 09:26 Pulse 57 L 04/07/24 09:26 Respiratory Rate 16 04/07/24 09:26 Blood Pressure 173/62 H 04/07/24 09:26 Pulse Oximetry 100 04/07/24 09:26 Temperature 36.6 C 04/07/24 09:26 Temperature Source Temporal Artery Scan 04/07/24 09:26 Pulse 57 L 04/07/24 09:26 Respiratory Rate 16 04/07/24 09:26 Respiratory Effort Normal, Non-Labored 04/07/24 09:29 Blood Pressure 173/62 H 04/07/24 09:26 Blood Pressure Position Sitting 04/07/24 09:26 Pulse Oximetry 100 04/07/24 09:26 Oxygen Delivery Method Room Air 04/07/24 09:26 Oxygen Flow Rate 0 04/07/24 09:26 Pain Level 5 04/07/24 09:26 Lab/Test Results Lab/Test Results: 04/07/24 10:03 Blood Blood Culture - Pending 04/07/24 10:03 Blood Blood Culture - Pending 04/07/24 10:02 Blood Blood Culture - Pending 04/07/24 10:02 Blood Blood Culture - Pending 04/07/24 10:02 Blood Blood Culture - Pending 04/07/24 10:02 Blood Blood Culture - Pending Medical Decision Making 1023 -- 69yo male with multiple chronic medical problems including IDDM, stage IV chronic kidney disease, coronary artery disease, status post CABG, hyperlipidemia, status post aortic valve replacement with bioprosthetic valve, peripheral vascular disease, left below the knee amputation, prostate cancer on Lupron, returns to the ER today for positive blood culture with continued systemic symptoms of low energy, subjective fever, mild headache. Patient is hemodynamically stable, saturating well in no respiratory distress and currently afebrile. I reviewed blood cultures from 04/01/2024 that are growing gram-positive rods in 1 of 2 cultures. Concern for potential bacteremia given risk factors and complex history. Consider Corynebacterium endocarditis. Plan to obtain EKG, echocardiogram, repeat diagnostic labs and additional sets of blood cultures. I will initiate empiric antibiotic coverage with vancomycin and cefepime. Discussed case with pharmacist who recommends vancomycin 1500 mg initial dose. -- I spoke with Dr. Roche, discussed ED presentation and course, he will admit the patient. Chest x-ray was interpreted by radiology:No acute pulmonary findings.Sternotomy wires and prosthetic aortic valve noted. Echocardiogram pending at time of admission. Lab Data Lab results reviewed: Yes I reviewed the patient's lab results. Labs: 04/07/24 12:27 Blood Blood Culture - Pending 04/07/24 10:53 Blood Blood Culture - Pending 04/07/24 10:27 Blood Blood Culture - Pending Laboratory Tests Range/Units 04/07/24 10:27 WBC (4.4-10.8) 10^3/uL 4.34 L RBC (4.36-5.78) 10^6/uL 4.10 L Hgb (13.5-17.5) g/dL 12.2 L Hct (40.0-50.0) % 36.1 L MCV (80-95) fL 88 MCH (27.0-33.0) pg 29.8 MCHC (32.0-36.0) % 33.8 RDW (11.8-14.1) % 13.1 Plt Count (130-400) 10^3/uL 181 MPV (8.0-11.0) fL 9.6 Immature Gran % % 0.5 Neutrophils % % 65.2 Lymphocytes % % 19.8 Monocytes % % 13.1 Eosinophils % % 0.7 Basophils % % 0.7 Nucleated RBC % (0.0-0.3) % 0.0 Absolute Neutrophils (1.2-6.7) 10^3/uL 2.83 Absolute Lymphocytes (1.2-3.4) 10^3/uL 0.86 L Absolute Monocytes (0.1-0.8) 10^3/uL 0.57 Absolute Eosinophils (0.0-0.7) 10^3/uL 0.03 Absolute Basophils (0.0-0.2) 10^3/uL 0.03 ESR (0-20) mm/hr 26 H VBG Lactate (0.6-1.4) mmol/L 0.7 Sodium (136-145) mmol/L 140 Potassium (3.5-5.1) mmol/L 4.2 Chloride (98-107) mmol/L 105 Carbon Dioxide (21.0-32.0) mmol/L 23.9 Anion Gap (3-11) mmol/L 11.1 H BUN (7-18) mg/dL 57 H Creatinine (0.70-1.30) mg/dL 4.0 H* Est GFR (CKD-EPI 2020) (mL/min/1.73m2) 15.25 Glucose (74-106) mg/dL 104 Calcium (8.5-10.1) mg/dL 8.9 Total Bilirubin (0.2-1.0) mg/dL 0.33 AST (15-37) U/L 17 ALT (16-63) U/L 23 Alkaline Phosphatase (46-116) U/L 84 C-Reactive Protein (<or=0.5) mg/dL < 0.50 Total Protein (6.4-8.2) g/dL 7.2 Albumin (3.4-5.0) g/dL 3.4 Procalcitonin ng/mL < 0.1 Quality:SDOH Health Related Social Needs: No Data to Display PFSH All Active Problems (Updated 04/07/24 @ 14:07 by Homar Arteaga MD) Chronic kidney disease (Chronic) Bacteremia (Acute) Nausea & vomiting (Acute) Tubular adenoma (Acute ~02/21/23) Screen for colon cancer (Acute) Cough (Acute) Kidney transplant candidate (Acute) Critical lower limb ischemia (Acute) Urinary retention (Acute) Hypertension (Chronic) Stage 4 chronic kidney disease due to diabetes mellitus (Acute) CKD (chronic kidney disease) stage 4, GFR 15-29 ml/min (Acute) Family history of colon cancer in father (Acute) Medical History History of osteomyelitis CAD (coronary artery disease) Arteriosclerotic cardiovascular disease (ASCVD) Aortic stenosis Status post aortic valve replacement in 2020?bioprosthetic Hyperlipidemia Cellulitis PVD (peripheral vascular disease) Delayed surgical wound healing of [id number] amputation stump HUY (acute kidney injury) Decubitus ulcer of sacral region, stage 1 Amputated great toe of right foot Colon polyps Cardiac murmur Type 2 diabetes mellitus Surgical History History of colonoscopy with polypectomy (~02/21/23) S/P aortic valve replacement with bioprosthetic valve 2020 S/P CABG (coronary artery bypass graft) x4 2020 History of left below knee amputation Social History Smoking/Tobacco Use Status: Never Smoking risk assessment performed?: Yes Alcohol Intake: former Drug use: Never Substance use type: does not use Housing: house Do you feel safe at home: Yes Do you feel safe in your relationship?: Yes Additional Social history: at side, very supportive.
[2024-04-07 10:35] LABS: Lactate 0.7 mmol/L (0.6-1.4)
[2024-04-07 10:40] LABS: Abs Immature Grans 0.02 10^3/uL (0.0-0.06); Absolute Basophil Count 0.03 10^3/uL (0.0-0.2); Absolute Eosinophil Count 0.03 10^3/uL (0.0-0.7); Absolute Lymphocyte Count 0.86 10^3/uL (1.2-3.4); Absolute Monocyte Count 0.57 10^3/uL (0.1-0.8); Absolute Neutrophil Count 2.83 10^3/uL (1.2-6.7); Basophils % 0.7 %; Eosinophils % 0.7 %; HCT 36.1 % (40.0-50.0); HGB 12.2 g/dL (13.5-17.5); Immature Grans % 0.5 %; Lymphocytes % 19.8 %; MCH 29.8 pg (27.0-33.0); MCHC 33.8 % (32.0-36.0); MCV 88 fL (80-95); MPV 9.6 fL (8.0-11.0); Monocytes % 13.1 %; Neutrophils % 65.2 %; Platelet Count 181 10^3/uL (130-400); RDW 13.1 % (11.8-14.1); RDW-SD 42.4 fL; WBC 4.34 10^3/uL (4.4-10.8)
[2024-04-07 10:50] LABS: ESR 26 mm/hr (0-20)
[2024-04-07 10:54] LABS: ALT 23 U/L (16-63); AST 17 U/L (15-37); Albumin 3.4 g/dL (3.4-5.0); Alkaline Phosphatase 84 U/L (46-116); Anion Gap 11.1 mmol/L (3-11); BUN 57 mg/dL (7-18); Bilirubin, Total 0.33 mg/dL (0.2-1.0); CO2 23.9 mmol/L (21.0-32.0); Calcium 8.9 mg/dL (8.5-10.1); Chloride 105 mmol/L (98-107); Estimated GFR 15.25 (mL/min/1.73m2); Glucose 104 mg/dL (74-106); Potassium 4.2 mmol/L (3.5-5.1); Sodium 140 mmol/L (136-145); Total Protein 7.2 g/dL (6.4-8.2)
[2024-04-07 10:55] LABS: C-Reactive Protein < 0.50 mg/dL (<or=0.5)
[2024-04-07 11:27] LABS: Procalcitonin < 0.1 ng/mL
[2024-04-07] MEDS: CEFEPIME 2 GM in Normal Saline 100 ML IVPB (11:43)
--- NOTE | 2024-04-07 12:49 | W.PM.HP.N ---
Date of service: 04/07/24 Time of Service: 12:49 Assessment and Plan Assessment and plan (1) Bacteremia: Status: Acute Assessment and plan: GPR in one bottle drawn on 04/01 Repeat blood cultures done in the ED On cefepime and Vancomicyn IV -pharmacy consult -CKD ST IV Echo no vegetation, LVEF 70%, recommendation for KARSON if clinically indicated (2) Open wound of right great toe: Status: Acute Assessment and plan: Podiatry consult Wound culture XR right great toe On antibiotics as above (3) Chronic kidney disease: Status: Chronic Assessment and plan: GRF 15.2 Fistula to his left arm for HD soon : left arm precaution BMP in AM Renal dosing of Rx (4) Diabetes: Status: Chronic Assessment and plan: Gluc AC and HS with SSI coverage Gluc 57 this AM after 26 units of lantus at HS: adjusting basal insulin bolus doses (5) Hypertension: Status: Chronic Assessment and plan: On home meds (6) Hyperlipidemia: Assessment and plan: on home statin dose (7) On deep vein thrombosis (DVT) prophylaxis: Status: Acute Assessment and plan: Heparin SC Discussed with Dr. Roche History of Present Illness History of Present Illness Chief Complaint: Fatigue, nausea, chills Narrative: This 69 years old male with past medical history including limited to insulin-dependent diabetes mellitus, CKD stage IV, CAD, status post CABG, hyperlipidemia, status post aortic valve replacement with bioprosthetic valve, peripheral vascular disease, left below the knee amputation, prostate cancer on Lupron with a recent visit to the emergency room 2 days prior to presentation with complaints of nausea vomiting and chills syndrome with reassuring labs with plan for outpatient follow-up But blood cultures growing gram-positive rods as a pulmonary result. The patient return to the emergency room today with complaint of lack of energy and fatigue, feeling feverish at times with heart and cold spells. The patient denied dysuria, chest pain or shortness of breath but reported mild headache without neck pain or stiffness. Workup in the ED the was significant for WBC of 4.34, creatinine of 4.0 around baseline, procalcitonin was negative chest x-ray was negative for acute findings. Blood cultures x 4 were drawn in the ED. Echocardiogram ultrasound revealed no vegetations but recommendation for KARSON if clinical suspicion for endocarditis were to persist. LVEF was 70% with normal RV function and well-seated with normal function bioprosthetic aortic valve. In the ED the patient was treated with IV vancomycin and cefepime. The hospitalist was consulted and the patient was admitted for gram-positive bacteremia, fatigue and weakness. Patient denies lightheadedness, dizziness, nasal congestion, cough, chest pain or abdominal pain, vomiting, diarrhea or dysuria. Patient mention to to ease right great toe with drainage during dressing change completed by his . This wound has been followed by vascular at [facility]. Patient would like to receive CPR and agrees to intubation.the patient is a full code. Review of Systems All systems reviewed & are unremarkable except as noted in HPI and below PFSH All Active Problems (Updated 04/07/24 @ 16:43 by Isabel Palomino APRN) On deep vein thrombosis (DVT) prophylaxis (Acute) Diabetes (Chronic) Open wound of right great toe (Acute) Ulcer of right foot with fat layer exposed (Acute) Chronic kidney disease (Chronic) Bacteremia (Acute) Nausea & vomiting (Acute) Tubular adenoma (Acute ~02/21/23) Screen for colon cancer (Acute) Cough (Acute) Kidney transplant candidate (Acute) Critical lower limb ischemia (Acute) Urinary retention (Acute) Hypertension (Chronic) Stage 4 chronic kidney disease due to diabetes mellitus (Acute) CKD (chronic kidney disease) stage 4, GFR 15-29 ml/min (Acute) Family history of colon cancer in father (Acute) Medical History History of osteomyelitis CAD (coronary artery disease) Arteriosclerotic cardiovascular disease (ASCVD) Aortic stenosis Status post aortic valve replacement in 2020?bioprosthetic Hyperlipidemia Cellulitis PVD (peripheral vascular disease) Delayed surgical wound healing of mqhfu-hkw-[id number] amputation stump HUY (acute kidney injury) Decubitus ulcer of sacral region, stage 1 Amputated great toe of right foot Colon polyps Cardiac murmur Type 2 diabetes mellitus Surgical History History of colonoscopy with polypectomy (~02/21/23) S/P aortic valve replacement with bioprosthetic valve 2020 S/P CABG (coronary artery bypass graft) x4 2020 History of left below knee amputation Social History Smoking/Tobacco Use Status: Never Smoking risk assessment performed?: Yes Alcohol Intake: former Drug use: Never Substance use type: does not use Housing: house Do you feel safe at home: Yes Do you feel safe in your relationship?: Yes Additional Social history: at side, very supportive. Meds Allergies and Home Medications Allergies Allergy/AdvReac Type Severity Reaction Status Date / Time No Known Allergies Allergy Verified 04/07/24 09:25 Home Medications ?Medication ?Instructions ?Recorded ?Confirmed ?Type aspirin 81 mg tablet,delayed 81 mg PO DAILY 12/30/17 04/07/24 History release pregabalin 100 mg capsule (Lyrica) 100 mg PO BID 09/30/19 04/07/24 History acetaminophen 500 mg tablet 1,000 mg PO Q6H PRN 10/14/19 04/07/24 History liraglutide 0.6 mg/0.1 mL (18 mg/3 1.8 mg subcut Q24H 10/14/19 04/07/24 History mL) subcutaneous pen injector ([employer] 2-Jimmy) clopidogrel 75 mg tablet 75 mg PO DAILY 01/29/23 04/07/24 History insulin regular human 100 unit/mL 1 sliding scale dose subcut 01/29/23 04/07/24 History (3 mL) subcutaneous pen (Novolin R USEASDIRECTD FlexPen) prazosin 2 mg capsule 2 mg PO BID 01/29/23 04/07/24 History insulin detemir U-100 100 unit/mL 30 unit subcut QAM 02/10/23 04/07/24 History (3 mL) subcutaneous pen (Levemir FlexPen) insulin detemir U-100 100 unit/mL 40 unit subcut QHS 02/10/23 04/07/24 History (3 mL) subcutaneous pen (Levemir FlexPen) amlodipine 10 mg tablet 10 mg PO DAILY 04/01/24 04/07/24 History atorvastatin 20 mg tablet 20 mg PO DAILY 04/01/24 04/07/24 History furosemide 40 mg tablet 40 mg PO BID 04/01/24 04/07/24 History insulin glargine 100 unit/mL (3 30 unit subcut QAM 04/01/24 04/07/24 History mL) subcutaneous pen (Lantus Solostar U-100 Insulin) sodium bicarbonate 650 mg tablet 650 mg PO BID 04/01/24 04/07/24 History zolpidem 5 mg tablet 5 mg PO QHS PRN 04/01/24 04/07/24 History metoprolol tartrate 50 mg tablet 50 mg PO BID 04/07/24 04/07/24 History Exam Narrative Exam Narrative: HENMT. Facial structures with normal appearance Eyes: Well aligned, intact ROM Neck: Normal ROM, no meningeal signs Neuro:alert and oriented to self, person, place time and situation. No neurological focal deficit Chest:Chest is symmetrical and normal appearance Resp: Normal respiratory pattern, speaks in full sentences, unlabored breathing, clear lung bilaterally Cardio: regular rhythm, S1, S2, no murmur, capillary refill<3 sec.radial pulses and right pedal pulse positive GI: Abdomen is not distended, soft and non tender, bowel sounds are present : Negative Costovertebral angle tenderness Back/spine/Pelvis: No back tenderness, normal alignment Integumentary: wound to right great toe Psych: RASS 0, congruent mood and normal affect. Results Labs 04/07/24 10:27 04/07/24 10:27 Labs: Laboratory Results - last 24 hr 04/07/24 10:27 WBC 4.34 L RBC 4.10 L Hgb 12.2 L Hct 36.1 L MCV 88 MCH 29.8 MCHC 33.8 RDW 13.1 Plt Count 181 MPV 9.6 Immature Gran % 0.5 Neutrophils % 65.2 Lymphocytes % 19.8 Monocytes % 13.1 Eosinophils % 0.7 Basophils % 0.7 Nucleated RBC % 0.0 Absolute Neutrophils 2.83 Absolute Lymphocytes 0.86 L Absolute Monocytes 0.57 Absolute Eosinophils 0.03 Absolute Basophils 0.03 ESR 26 H VBG Lactate 0.7 Sodium 140 Potassium 4.2 Chloride 105 Carbon Dioxide 23.9 Anion Gap 11.1 H BUN 57 H Creatinine 4.0 H* Est GFR (CKD-EPI 2020) 15.25 Glucose 104 Calcium 8.9 Total Bilirubin 0.33 AST 17 ALT 23 Alkaline Phosphatase 84 C-Reactive Protein < 0.50 Total Protein 7.2 Albumin 3.4 Procalcitonin < 0.1 Last Vital Signs Temp 36.6 C 04/07/24 09:26 Pulse 57 L 04/07/24 09:26 Resp 16 04/07/24 09:26 BP 173/62 H 04/07/24 09:26 Pulse Ox 100 04/07/24 09:26 Time Spent Time spent with Patient: >75 minutes Time was spent: preparing to see the patient(eg.review tests), obtaining and/or reviewing separately otained hiistory, ordering medications,tests, procedures, referring, communicating with other health child day care teacher, indepentently interpreting results, counseling the patient and care coordination
[2024-04-07] MEDS: VANCOMYCIN/WATER (PEG) 1.5 GM/300 ML BAG IV (12:52)
--- NOTE | 2024-04-07 14:27 | W.PCEDHO ---
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 Medical / Surgical History (Last Reviewed 04/07/24 @ 10:18 by Homar Arteaga MD) History of osteomyelitis CAD (coronary artery disease) Arteriosclerotic cardiovascular disease (ASCVD) Aortic stenosis Hyperlipidemia Cellulitis PVD (peripheral vascular disease) Delayed surgical wound healing of touzp-cza-pbfm amputation stump HUY (acute kidney injury) Decubitus ulcer of sacral region, stage 1 Amputated great toe of right foot Colon polyps Cardiac murmur Type 2 diabetes mellitus (Last Reviewed 04/07/24 @ 10:18 by Homar Arteaga MD) History of colonoscopy with polypectomy (~02/21/23) S/P aortic valve replacement with bioprosthetic valve S/P CABG (coronary artery bypass graft) History of left below knee amputation Most Recent Vital Signs Temperature 36.6 C 04/07/24 09:26 Temperature Source Temporal Artery Scan 04/07/24 09:26 Pulse 57 L 04/07/24 09:26 Respiratory Rate 16 04/07/24 09:26 Respiratory Effort Normal, Non-Labored 04/07/24 09:29 Blood Pressure 173/62 H 04/07/24 09:26 Blood Pressure Position Sitting 04/07/24 09:26 Pulse Oximetry 100 04/07/24 09:26 Oxygen Delivery Method Room Air 04/07/24 10:34 Oxygen Flow Rate 0 04/07/24 09:26 Pain Level 5 04/07/24 09:26 Allergies No Known Allergies Allergy (Verified 04/07/24 09:25) Precautions Isolation Standard precaution 04/07/24 09:29 IV IV Catheter Type [Right Peripheral IV Forearm] IV Catheter Gauge [Right 20 Forearm] Diagnostics 04/07/24 Range/Units 10:27 WBC 4.34 L (4.4-10.8) 10^3/uL RBC 4.10 L (4.36-5.78) 10^6/uL Hgb 12.2 L (13.5-17.5) g/dL Hct 36.1 L (40.0-50.0) % MCV 88 (80-95) fL MCH 29.8 (27.0-33.0) pg MCHC 33.8 (32.0-36.0) % RDW 13.1 (11.8-14.1) % Plt Count 181 (130-400) 10^3/uL MPV 9.6 (8.0-11.0) fL Immature Gran % 0.5 % Neutrophils % 65.2 % Lymphocytes % 19.8 % Monocytes % 13.1 % Eosinophils % 0.7 % Basophils % 0.7 % Nucleated RBC % 0.0 (0.0-0.3) % Absolute Neutrophils 2.83 (1.2-6.7) 10^3/uL Absolute Lymphocytes 0.86 L (1.2-3.4) 10^3/uL Absolute Monocytes 0.57 (0.1-0.8) 10^3/uL Absolute Eosinophils 0.03 (0.0-0.7) 10^3/uL Absolute Basophils 0.03 (0.0-0.2) 10^3/uL ESR 26 H (0-20) mm/hr VBG Lactate 0.7 (0.6-1.4) mmol/L Sodium 140 (136-145) mmol/L Potassium 4.2 (3.5-5.1) mmol/L Chloride 105 (98-107) mmol/L Carbon Dioxide 23.9 (21.0-32.0) mmol/L Anion Gap 11.1 H (3-11) mmol/L BUN 57 H (7-18) mg/dL Creatinine 4.0 H* (0.70-1.30) mg/dL Est GFR (CKD-EPI 2020) 15.25 (mL/min/1.73m2) Glucose 104 (74-106) mg/dL Calcium 8.9 (8.5-10.1) mg/dL Total Bilirubin 0.33 (0.2-1.0) mg/dL AST 17 (15-37) U/L ALT 23 (16-63) U/L Alkaline Phosphatase 84 (46-116) U/L C-Reactive Protein < 0.50 (<or=0.5) mg/dL Total Protein 7.2 (6.4-8.2) g/dL Albumin 3.4 (3.4-5.0) g/dL Procalcitonin < 0.1 ng/mL 04/07/24 12:27 Blood Culture - Pending Blood 04/07/24 10:53 Blood Culture - Pending Blood 04/07/24 10:27 Blood Culture - Pending Blood [id number] Documentation Fingerstick Glucose Start: 04/07/24 13:59 Freq: Status: Active Protocol: Activity Type Activity Date Activity User E-sign Co-sign Detail Recorded Client Recorded Date Recorded By Document 04/07/24 13:58 MAYTE CISNEROS(3) [id number] 04/07/24 13:59 MAYTE DACATIA(4) Intake and Output - 24 Hour Total 04/07/24 09:10 thru 04/07/24 12:50 Intake Total 100 Balance 100 Weight 97.069 kg Intake: IV 100 Falls Risk Assessment History of Falls No History 04/07/24 09:43 Contributing Factors Impairments,Medications 04/07/24 09:43 Ambulatory Aids Uses ambulatory device + 04/07/24 09:43 Tubes/Lines None 04/07/24 09:43 Gait Evaluation W/any additional score 04/07/24 09:43 Cognition No cognitive impairment 04/07/24 09:43 Fall Total Score 56 04/07/24 09:43 Level of Risk High Risk 04/07/24 09:43 v v v v v v v v v Sending and/or Receiving Nurses: Please use comment section below to note any information pertinent to the patient hand-off not included above. Information / Comments: Report received from: Aurelia Gill RN
[2024-04-07 14:44] VITALS: BP 171/77; PULSE 69; RESP 18; TEMP 36.8; O2SAT 99
[2024-04-07 16:20] LABS: Bilirubin Negative (Negative); Blood Trace-lysed (Negative); Clarity Clear (Clear); Glucose 100 mg/dL (Negative); Ketones Negative (Negative); Leukocyte Esterase Negative (Negative); Nitrite Negative (Negative); Specific Gravity 1.025 (1.005-1.025); Urobilinogen 0.2 mg/dL (Up to 0.2); pH 6.5 (5-8)
--- NOTE | 2024-04-07 16:20 | W.PODCONSULT ---
Date of service: 04/07/24 Time of Service: 03:45 Assessment and Plan Assessment and plan (1) Ulcer of right foot with fat layer exposed: Status: Acute (2) History of left below knee amputation: (3) Stage 4 chronic kidney disease due to diabetes mellitus: Status: Acute (4) Bacteremia: Status: Acute Assessment and plan: Patient was seen bedside today. He has a wound to the tip of the right hallux. I debrided the hyperkeratotic tissue to the tip of the ulcer using a sterile 4 x 4. This reveals necrotic tissue to the wound base. Cultures were taken. No drainage noted actively. No erythema noted at this time there is edema noted. It is possible that that this wound is the source of the patient's bacteremia. Will await culture results. I do recommend x-rays to see if there is any bony involvement. Dressings applied with dry sterile dressings. I recommend daily dressing changes with Xeroform gauze, 4 x 4, Kerlix and an Shantanu wrap. Patient to proceed in this patient's care History of Present Illness Narrative: This is a 69-year-old male patient admitted for bacteremia. He has a wound to the tip of the right hallux which is concerning for source of infection. Patient was seen with his present. They state that he had some redness to the the right hallux as well as edema however that has decreased since his admission. Denies any worsening. He states that he sees Dr. Canas at [facility] for vascular who also takes care of the right toe ulcer. Review of Systems Cardiovascular Comments: Nonpalpable pulses bilateral lower extremity Musculoskeletal Comments: BKA to the Left right third toe amputation Integumentary/Breasts Comments: Ulcer right hallux PFSH All Active Problems (Updated 04/07/24 @ 16:24 by Shannon Crump DPM) Ulcer of right foot with fat layer exposed (Acute) Chronic kidney disease (Chronic) Bacteremia (Acute) Nausea & vomiting (Acute) Tubular adenoma (Acute ~02/21/23) Screen for colon cancer (Acute) Family history of colon cancer in father (Acute) CKD (chronic kidney disease) stage 4, GFR 15-29 ml/min (Acute) Stage 4 chronic kidney disease due to diabetes mellitus (Acute) Hypertension (Chronic) Urinary retention (Acute) Critical lower limb ischemia (Acute) Kidney transplant candidate (Acute) Cough (Acute) Medical History History of osteomyelitis CAD (coronary artery disease) Arteriosclerotic cardiovascular disease (ASCVD) Aortic stenosis Status post aortic valve replacement in 2020?bioprosthetic Hyperlipidemia Cellulitis PVD (peripheral vascular disease) Delayed surgical wound healing of [id number]-[id number] amputation stump HUY (acute kidney injury) Decubitus ulcer of sacral region, stage 1 Amputated great toe of right foot Colon polyps Cardiac murmur Type 2 diabetes mellitus Surgical History History of colonoscopy with polypectomy (~02/21/23) S/P aortic valve replacement with bioprosthetic valve 2020 S/P CABG (coronary artery bypass graft) x4 2020 History of left below knee amputation Social History Smoking/Tobacco Use Status: Never Smoking risk assessment performed?: Yes Alcohol Intake: former Drug use: Never Substance use type: does not use Housing: house Do you feel safe at home: Yes Do you feel safe in your relationship?: Yes Additional Social history: at side, very supportive. Exam Extrem Other: Right lower extremity physical exam: Derm: Full-thickness ulceration noted to the medial tip of the right hallux with hyperkeratotic borders, base is 100% fibrinous no periwound erythema noted mild edema noted no drainage or malodor noted skin is otherwise warm dry and supple. Vascular: DP PT pulses are nonpalpable to the right lower extremity CFT is delayed, hair growth is absent. MSK: Below-knee amputation to the left lower extremity, amputation to the right fifth toe. Neuro: Light touch sensation absent Results Last Vital Signs Temp 98.2 F 04/07/24 14:44 Pulse 69 04/07/24 14:44 Resp 18 04/07/24 14:44 BP 171/77 H 04/07/24 14:44 Pulse Ox 99 04/07/24 14:44 Labs 04/07/24 10:27 04/07/24 10:27 Labs: Laboratory Results - last 24 hr 04/07/24 10:27 WBC 4.34 L RBC 4.10 L Hgb 12.2 L Hct 36.1 L MCV 88 MCH 29.8 MCHC 33.8 RDW 13.1 Plt Count 181 MPV 9.6 Immature Gran % 0.5 Neutrophils % 65.2 Lymphocytes % 19.8 Monocytes % 13.1 Eosinophils % 0.7 Basophils % 0.7 Nucleated RBC % 0.0 Absolute Neutrophils 2.83 Absolute Lymphocytes 0.86 L Absolute Monocytes 0.57 Absolute Eosinophils 0.03 Absolute Basophils 0.03 ESR 26 H VBG Lactate 0.7 Sodium 140 Potassium 4.2 Chloride 105 Carbon Dioxide 23.9 Anion Gap 11.1 H BUN 57 H Creatinine 4.0 H* Est GFR (CKD-EPI 2020) 15.25 Glucose 104 Calcium 8.9 Total Bilirubin 0.33 AST 17 ALT 23 Alkaline Phosphatase 84 C-Reactive Protein < 0.50 Total Protein 7.2 Albumin 3.4 Procalcitonin < 0.1
[2024-04-07 16:26] LABS: Bacteria Negative HPF (Negative); C & S Indicated? No; Crystals Negative HPF (Negative); Epithelial Cells Rare HPF (Negative); Mucus Negative (Negative); RBC 0-2 HPF (0-2); WBC Negative HPF (0-5)
[2024-04-07 19:58] VITALS: BP 181/62; PULSE 68; RESP 18; TEMP 37; O2SAT 96
[2024-04-07 20:59] VITALS: BP 180/70; PULSE 67; RESP 22; TEMP 36.8; O2SAT 99
[2024-04-07] MEDS: Prazosin 1 MG CAP 2 MG PO (21:04)
[2024-04-07] MEDS: Furosemide 40 MG TAB PO (21:05)
[2024-04-07] MEDS: Acetaminophen 500 MG TAB 1000 MG PO (21:06)
[2024-04-07] MEDS: Metoprolol 50 MG TAB PO (21:06)
[2024-04-07] MEDS: Pregabalin 100 MG CAP PO (21:07)
[2024-04-07] MEDS: Sodium Bicarbonate 650 MG TAB PO (21:07)
[2024-04-07] MEDS: Normal Saline Flush 10 ML SYR IVP (21:07)
[2024-04-07] MEDS: Insulin Glargine 300 UNITS/3 ML PEN 10 UNITS SC (21:12)
[2024-04-07] MEDS: Zolpidem 5 MG TAB PO (23:21)
[2024-04-08] VITALS (7 sets, daily range): BP systolic 108–152; BP diastolic 54–80; PULSE 53–64; RESP 14–20; TEMP 35.9–36.8; O2SAT 93–99
--- NOTE | 2024-04-08 | DI.MRI_ITS ---
Exam(s) MR LOWER EXTREMITY RT WO/W EXAM: MR LOWER EXTREMITY RT WO/W CLINICAL HISTORY: Erosion distal phalanx of the 4th toe ? osteomyel. TECHNIQUE: Multiplanar multisequence MRI was performed. CONTRAST MATERIAL: IV Contrast: 19 mL of Dotarem contrast administered. COMPARISON: Plain films 07 April 2024 FINDINGS: Exam mildly limited by motion particularly in the region of the toes. BONES: No evidence of acute fracture. Prior amputation at the level of the mid 5th metatarsal. Prior amputation of portion of the great toe out to the level of the distal aspect of the proximal ph alanx. Some edema within the proximal phalanx and overlying soft tissue swelling and soft tissue wou nd.. Mild marrow enhancement. Findings could the secondary to recent surgery. Osteomyelitis not ex cluded. Deformities of the 2nd 3rd and 4th toes. Mild edema in the soft tissues surrounding distal phalanx o f the 3rd toe but no corresponding low T1 signal. High signal lesion within the 2nd cuneiform, likely degenerative. MUSCULOTENDINOUS STRUCTURES: Visualized portion of the planar fascia is unremarkable. The visualized intrinsic muscles and tendons of the foot are unremarkable. IMPRESSION: Soft tissue swelling and enhancement surrounding the remaining portion of the proximal phalanx of the great toe. Postcontrast enhancement present in the marrow. Findings could represent osteomyelitis versus recent surgery. No other sites suspicious for osteomyelitis. DATA REPOSITORY:
[2024-04-08] MEDS: Heparin 5,000 UNITS/ML VIAL 5000 UNITS SC (05:24)
[2024-04-08 07:24] LABS: Vancomycin, Random 14.5 ug/mL
[2024-04-08] MEDS: Normal Saline Flush 10 ML SYR IVP ×3 (08:34→20:20)
[2024-04-08] MEDS: Clopidogrel 75 MG TAB PO (08:35)
[2024-04-08] MEDS: Aspirin E.C. 81 MG TABEC PO (08:35)
[2024-04-08] MEDS: amLODIPine 10 MG TAB PO (08:35)
[2024-04-08] MEDS: Furosemide 40 MG TAB PO ×2 (08:35→19:46)
[2024-04-08] MEDS: Atorvastatin 20 MG TAB PO (08:35)
[2024-04-08] MEDS: Pregabalin 100 MG CAP PO ×2 (08:35→19:46)
[2024-04-08] MEDS: Metoprolol 50 MG TAB PO ×2 (08:35→19:47)
[2024-04-08] MEDS: Chlorthalidone 25 MG TAB 50 MG PO (08:36)
[2024-04-08] MEDS: Sodium Bicarbonate 650 MG TAB PO ×2 (08:36→19:46)
[2024-04-08] MEDS: Insulin Glargine 300 UNITS/3 ML PEN 15 UNITS SC ×2 (08:50→19:48)
--- NOTE | 2024-04-08 10:28 | W.PM.PROGNOT ---
Date of Service Date of service: 04/08/24 Time of Service: 10:28 Assessment and Plan Assessment and plan (1) Bacteremia: Status: Acute Assessment and plan: GPR in one bottle drawn on 04/01; today at 1605 reports still only indicates anaerobic gram-positive rods. Repeat blood cultures done in the ED and are negative at 24 hours On cefepime and Vancomicyn IV -pharmacy consult -CKD ST IV and now HUY Echo no vegetation, LVEF 70%, recommendation for KARSON if clinically indicated (2) Open wound of right great toe: Status: Acute Assessment and plan: Podiatry consult Wound culture XR right right foot: finding discussed with podiatry and would need vascular study -Erosion at the distal phalanx of the 4th toe may represent osteomyelitis. Resection of the distal phalanx and and distal aspect of the proximal phalanx of the great toe without definite acute erosion although this is difficult to determine without recent comparisons or history. Will order MRI ; completed but results are pending On antibiotics as above (3) Chronic kidney disease: Status: Chronic Assessment and plan: GRF 15.2 on admit now 12.89 Fistula to his left arm for HD soon : left arm precaution BMP in AM Renal dosing of Rx (4) Acute kidney injury superimposed on CKD: Status: Acute Assessment and plan: Will initiate slow IV hydration, LVEF was 70% and the patient is making urine. Will closely monitor BMP in the morning. (5) Diabetes: Status: Chronic Assessment and plan: Continue gluc AC and HS with SSI coverage Gluc 1 11-1 1 hide this is very low 75 today adjusted basal insulin bolus doses of 15 units in the morning and at bedtime (6) Hypertension: Status: Chronic Assessment and plan: Continue on home meds (7) Hyperlipidemia: Assessment and plan: Continue on home statin dose (8) Anemia: Status: Chronic Assessment and plan: H&H 10.7 and 31.5 was 12.2 and 36.1 on 04/07/2024 CBC in the morning (9) On deep vein thrombosis (DVT) prophylaxis: Status: Acute Assessment and plan: Will continue heparin SC Discussed with Dr. Roche Subjective Subjective Patient reports: tolerating liquids well, tolerating a regular diet, voiding w/o difficulty, flatus, bowel movement and other (Chills and night sweats ); denies diarrhea, blood in stool, nausea, vomiting, shortness of breath or fever Exam Narrative Exam Narrative: HENMT. Facial structures with normal appearance Neuro:alert and oriented to self X4 Resp: Normal respiratory pattern, speaks in full sentences, unlabored breathing, clear lung bilaterally Cardio: regular rhythm, S1, S2, no murmur, capillary refill<3 sec.radial pulses and right pedal pulse positive, stronger proximally GI: Abdomen is not distended, soft and non tender, bowel sounds are present Integumentary: opened wound to right great toe, no wound to other toes of the right foot, Left BKA Psych: RASS 0, congruent mood and normal affect. Objective Last Vital Signs Temp 35.9 C L 04/08/24 07:50 Pulse 60 04/08/24 07:50 Resp 18 04/08/24 07:50 BP 152/80 H 04/08/24 07:50 Pulse Ox 99 04/08/24 07:50 Laboratory Results - last 24 hr 04/07/24 04/07/24 04/08/24 10:27 15:50 06:45 WBC 4.34 L RBC 4.10 L Hgb 12.2 L Hct 36.1 L MCV 88 MCH 29.8 MCHC 33.8 RDW 13.1 Plt Count 181 MPV 9.6 Immature Gran % 0.5 Neutrophils % 65.2 Lymphocytes % 19.8 Monocytes % 13.1 Eosinophils % 0.7 Basophils % 0.7 Nucleated RBC % 0.0 Absolute Neutrophils 2.83 Absolute Lymphocytes 0.86 L Absolute Monocytes 0.57 Absolute Eosinophils 0.03 Absolute Basophils 0.03 ESR 26 H VBG Lactate 0.7 Sodium 140 Potassium 4.2 Chloride 105 Carbon Dioxide 23.9 Anion Gap 11.1 H BUN 57 H Creatinine 4.0 H* Est GFR (CKD-EPI 2020) 15.25 Glucose 104 Calcium 8.9 Total Bilirubin 0.33 AST 17 ALT 23 Alkaline Phosphatase 84 C-Reactive Protein < 0.50 Total Protein 7.2 Albumin 3.4 Procalcitonin < 0.1 Urine Color Yellow Urine Clarity Clear Urine pH 6.5 Ur Specific Napoleon 1.025 Urine Protein >=300 H Urine Ketones Negative Urine Blood Trace-lysed H Urine Nitrite Negative Urine Bilirubin Negative Urine Urobilinogen 0.2 Ur Leukocyte Esterase Negative Urine RBC 0-2 Urine WBC Negative Ur Epithelial Cells Rare Urine Crystals Negative Urine Bacteria Negative Urine Mucus Negative Ur Culture Indicated? No Urine Glucose 100 H Random Vancomycin 14.5 Time Spent with Patient Time Spent with Patient: >50 minutes Time was spent: preparing to see the patient(eg.review tests), obtaining and/or reviewing separately otained hiistory, ordering medications,tests, procedures, referring, communicating with other health director of career services, indepentently interpreting results, counseling the patient and care coordination
--- NOTE | 2024-04-08 10:38 | W.NUTRFU ---
Date of service: 04/08/24 Time of Service: 10:38 Nutrition Note NOTE: Pt admitted for open wound of right great toe with bacteremia. Hx of CKD 4 and DMII with last a1c noted 2019 6.8%. Takes 30units lantus am at home and detemir bid for TDD of ~1u/kg. Good intake this admission with low sodium CHO consistent diet order. Weight stable over the last 4 years. Pt declined more detailed education for diabetes but did take my card if he develops interest in outpatient education and menu planning. Time Spent in Nutritional Counseling and Treatment: 5
--- NOTE | 2024-04-08 10:44 | PDOC.CMIN ---
Date of service: 04/08/24 Time of Service: 10:44 Care Management Initial Assmt Initial Assessment Reason for Hospitalization: Acute kidney injury; stage 4 chronic kidney disease due to DM, bacteremia, ulcer of R Foot Functional Status/Living Situation Patient Presentation: Unable to meet with patient due to ongoing procedures; CM following. Town of Residence: [place] Resides with: Spouse (Jaki) Employment Status: Retired Medications Medication Management: No Issues/Barriers identified Advance Directives Advance Directives: Do you have an Advance Directive: N 10/17/16 11:28 AD On File at [facility]: N 10/17/16 11:28 Date Asked 04/07/24 04/07/24 09:22 AD Date Reviewed COLST On File at [facility] COLST Date Scanned Code Status Resuscitation Status Full Code Insurance Coverage/Financial Issues Insurance: Medicare, /[facility] Care Team Visit Care Team Role Provider Type Belle Garcia Primary Care Provider NON-[facility] STAFF PHYSICIAN Autumn Washington, GERMÁN, CDCES Other Providers WINDOWS VMWARE ADMINISTRATOR Shannon Crump, DPM Other Providers DPM [facility] STAFF PHYSICIAN Pat Mcnulty Other Providers WINDOWS VMWARE ADMINISTRATOR Wally Nix, COUNTY AGENT Other Providers [facility] NURSE HEAD OF MEASUREMENT & INSIGHTS Jose Alfredo Cleaning, DPM Other Providers [facility] STAFF PHYSICIAN Nestor Wells, GERMÁN Other Providers WINDOWS VMWARE ADMINISTRATOR Homar Arteaga MD Emergency Provider [facility] STAFF PHYSICIAN Joao Roche MD Admit Provider [facility] STAFF PHYSICIAN Attending Provider Discharge Potential Discharge Needs: Consult Consult Services Needed: Other (Podiatry, wound), Imaging/labs (MRI, BMP, Glucose, CBC, H&H, blood cultures), PT Evaluation, PCP F/U Appt and Surgical F/U Appt Anticipated Barriers to Discharge: Bed availability Transportation: EMS (Tertiary transfer) Plan: Xavier was admitted on 04/09/24 with bacteremia and fever. He has an infected toe and multiple medical problems. After consultation with a vascular surgeon at [facility] [place], the provider made the decision to transfer him to the vascular service at [facility] [place]. He has been accepted in transfer to Dr. Hurley's service and will transport via EMS coordinated by nursing industrial gas servicer supervisor. PFSH All Active Problems (Updated 04/10/24 @ 00:01 by MAYTE CISNEROS) Acute kidney injury superimposed on CKD (Acute) Anemia (Chronic) Diabetes (Chronic) Open wound of right great toe (Acute) Ulcer of right foot with fat layer exposed (Acute) Bacteremia (Acute) Nausea & vomiting (Acute) Tubular adenoma (Acute ~02/21/23) Screen for colon cancer (Acute) Cough (Acute) Kidney transplant candidate (Acute) Critical lower limb ischemia (Acute) Urinary retention (Acute) Hypertension (Chronic) Stage 4 chronic kidney disease due to diabetes mellitus (Acute) CKD (chronic kidney disease) stage 4, GFR 15-29 ml/min (Acute) Family history of colon cancer in father (Acute) Medical History History of osteomyelitis CAD (coronary artery disease) Arteriosclerotic cardiovascular disease (ASCVD) Aortic stenosis Status post aortic valve replacement in 2020?bioprosthetic Hyperlipidemia Cellulitis PVD (peripheral vascular disease) Delayed surgical wound healing of [id number]-[id number] amputation stump HUY (acute kidney injury) Decubitus ulcer of sacral region, stage 1 Amputated great toe of right foot Colon polyps Cardiac murmur Type 2 diabetes mellitus Surgical History History of colonoscopy with polypectomy (~02/21/23) S/P aortic valve replacement with bioprosthetic valve 2020 S/P CABG (coronary artery bypass graft) x4 2020 History of left below knee amputation Social History Smoking/Tobacco Use Status: Never Smoking risk assessment performed?: Yes Alcohol Intake: former Drug use: Never Substance use type: does not use Housing: house Do you feel safe at home: Yes Do you feel safe in your relationship?: Yes Additional Social history: at side, very supportive. SDOH(Care Management) Screening Will the Patient Participate in the Screening?: Yes Do you worry about having a steady place to live?: no In the past 12 months, have you had to go without electric, gas, oil or water in your home?: no Have you or anyone in your house had to go without enough food to eat?: no Has lack of transportation kept you from medical appointments or from doing things needed for daily living?: no Has anyone in your support network made you feel unsafe for any reason?: no
[2024-04-08 11:01] LABS: Abs Immature Grans 0.02 10^3/uL (0.0-0.06); Absolute Basophil Count 0.03 10^3/uL (0.0-0.2); Absolute Eosinophil Count 0.12 10^3/uL (0.0-0.7); Absolute Lymphocyte Count 0.67 10^3/uL (1.2-3.4); Absolute Monocyte Count 0.47 10^3/uL (0.1-0.8); Absolute Neutrophil Count 2.81 10^3/uL (1.2-6.7); Basophils % 0.7 %; Eosinophils % 2.9 %; HCT 31.5 % (40.0-50.0); HGB 10.7 g/dL (13.5-17.5); Immature Grans % 0.5 %; Lymphocytes % 16.3 %; MCH 29.9 pg (27.0-33.0); MCV 88 fL (80-95); Monocytes % 11.4 %; Neutrophils % 68.2 %; Platelet Count 175 10^3/uL (130-400); RBC 3.58 10^6/uL (4.36-5.78); RDW-SD 41.9 fL; WBC 4.12 10^3/uL (4.4-10.8)
[2024-04-08] MEDS: Prazosin 1 MG CAP 2 MG PO (11:14)
[2024-04-08 11:19] LABS: Anion Gap 12.8 mmol/L (3-11); BUN 67 mg/dL (7-18); CO2 21.2 mmol/L (21.0-32.0); Calcium 8.5 mg/dL (8.5-10.1); Chloride 104 mmol/L (98-107); Estimated GFR 12.89 (mL/min/1.73m2); Glucose 182 mg/dL (74-106); Potassium 4.1 mmol/L (3.5-5.1); Sodium 138 mmol/L (136-145)
[2024-04-08 11:22] LABS: CREATININE 4.6 mg/dL (0.70-1.30)
--- NOTE | 2024-04-08 11:40 | WOUNDCARE ---
Wound care provided to right great toe. Wound care; washed with wound cleanser, pat dry, 2x2 between each toe, xeroform to open area on great toe, covered with 2x2 and 4x4, kerlix wrap, oscar wrap. Patient tolerated well, no c/o pain. Wound care per podiatry recommendations in current consult note. Culture of open area obatined and sent to the lab.Wound Care Report
[2024-04-08] MEDS: CEFEPIME 2 GM in Normal Saline 100 ML IVPB (12:34)
[2024-04-08] MEDS: Insulin Aspart 300 UNITS/3 ML PEN SC ×2 (12:36→17:49)
--- NOTE | 2024-04-08 14:26 | CHAPLAIN ---
Xavier was visiting with his and sister when I stopped in. They were all pleasant and easily engaged in conversation. I explained my role and offered support.
--- NOTE | 2024-04-08 15:19 | NUR.NOTE ---
Patient to MRI via wheelchair.Nursing Note:
--- NOTE | 2024-04-08 15:23 | PGE_ITS ---
Date of Service Date of service: 04/08/24 Time of Service: 12:15 Assessment and Plan Assessment and plan (1) Ulcer of right foot with fat layer exposed: Status: Acute (2) History of left below knee amputation: (3) Stage 4 chronic kidney disease due to diabetes mellitus: Status: Acute (4) Bacteremia: Status: Acute Assessment and plan: Patient was seen bedside today. He has a wound to the tip of the right hallux. Wound cultures are pending at this time. X-ray images inconclusive for osteomyelitis to the tip of the right hallux. There is some concern for osteomyelitis to the right fourth toe however there is no ulceration to the right fourth toe unlikely that this was the source of infection. MRI pending at this time. Will await MRI findings until any further plans are made. If he does require surgical intervention he will need clearance from his vascular surgeon first. Nursing to continue dressing changes with Xeroform gauze, 4 x 4, Kerlix and Shantanu wrap Subjective Subjective Interval history since last seen: Patient was seen bedside today resting comfortably. Exam Extrem Other: Right lower extremity physical exam: Previous dressings left intact today. Derm: Full-thickness ulceration noted to the medial tip of the right hallux with hyperkeratotic borders, base is 100% fibrinous no periwound erythema noted mild edema noted no drainage or malodor noted skin is otherwise warm dry and supple. Vascular: DP PT pulses are nonpalpable to the right lower extremity CFT is delayed, hair growth is absent. MSK: Below-knee amputation to the left lower extremity, amputation to the right fifth toe. Neuro: Light touch sensation absent Objective Last Vital Signs Temp 97.9 F 04/08/24 11:30 Pulse 64 04/08/24 11:30 Resp 18 04/08/24 11:30 BP 134/62 04/08/24 11:30 Pulse Ox 97 04/08/24 11:30 Laboratory Results - last 24 hr 04/07/24 04/08/24 04/08/24 15:50 06:45 10:50 WBC 4.12 L RBC 3.58 L Hgb 10.7 L Hct 31.5 L MCV 88 MCH 29.9 MCHC 34.0 RDW 13.0 Plt Count 175 MPV 10.0 Immature Gran % 0.5 Neutrophils % 68.2 Lymphocytes % 16.3 Monocytes % 11.4 Eosinophils % 2.9 Basophils % 0.7 Nucleated RBC % 0.0 Absolute Neutrophils 2.81 Absolute Lymphocytes 0.67 L Absolute Monocytes 0.47 Absolute Eosinophils 0.12 Absolute Basophils 0.03 Sodium 138 Potassium 4.1 Chloride 104 Carbon Dioxide 21.2 Anion Gap 12.8 H BUN 67 H Creatinine 4.6 H* Est GFR (CKD-EPI 2020) 12.89 Glucose 182 H Calcium 8.5 Urine Color Yellow Urine Clarity Clear Urine pH 6.5 Ur Specific [place] 1.025 Urine Protein >=300 H Urine Ketones Negative Urine Blood Trace-lysed H Urine Nitrite Negative Urine Bilirubin Negative Urine Urobilinogen 0.2 Ur Leukocyte Esterase Negative Urine RBC 0-2 Urine WBC Negative Ur Epithelial Cells Rare Urine Crystals Negative Urine Bacteria Negative Urine Mucus Negative Ur Culture Indicated? No Urine Glucose 100 H Random Vancomycin 14.5 Time Spent with Patient Time Spent with Patient: 25-34 minutes Time was spent: preparing to see the patient(eg.review tests), obtaining and/or reviewing separately otained hiistory, referring, communicating with other health medical care administrator, indepentently interpreting results, counseling the patient and care coordination
[2024-04-08] MEDS: Gadoterate meglumine 20 ML SYRINGE IVP (15:57)
[2024-04-08] MEDS: Lactated Ringers 1,000 ML 75 ML IV (16:56)
[2024-04-08] MEDS: Zolpidem 5 MG TAB PO (21:35)
[2024-04-08] MEDS: Loperamide 2 MG CAP 4 MG PO (21:35)
[2024-04-09 04:00] VITALS: BP 120/67; PULSE 64; RESP 18; TEMP 36.9; O2SAT 97
[2024-04-09] MEDS: Heparin 5,000 UNITS/ML VIAL 5000 UNITS SC (06:02)
[2024-04-09 07:43] VITALS: BP 148/72; PULSE 50; RESP 14; TEMP 36.4; O2SAT 98
[2024-04-09] MEDS: Aspirin E.C. 81 MG TABEC PO (08:22)
[2024-04-09] MEDS: Furosemide 40 MG TAB PO (08:22)
[2024-04-09] MEDS: Chlorthalidone 25 MG TAB 50 MG PO (08:23)
[2024-04-09] MEDS: Sodium Bicarbonate 650 MG TAB PO (08:23)
[2024-04-09] MEDS: amLODIPine 10 MG TAB PO (08:23)
[2024-04-09] MEDS: Prazosin 1 MG CAP 2 MG PO (08:23)
[2024-04-09] MEDS: Clopidogrel 75 MG TAB PO (08:24)
[2024-04-09] MEDS: Pregabalin 100 MG CAP PO (08:24)
[2024-04-09] MEDS: Atorvastatin 20 MG TAB PO (08:24)
[2024-04-09] MEDS: Insulin Glargine 300 UNITS/3 ML PEN 15 UNITS SC (08:25)
[2024-04-09 08:46] LABS: Abs Immature Grans 0.03 10^3/uL (0.0-0.06); Absolute Basophil Count 0.03 10^3/uL (0.0-0.2); Absolute Eosinophil Count 0.18 10^3/uL (0.0-0.7); Absolute Lymphocyte Count 1.06 10^3/uL (1.2-3.4); Absolute Monocyte Count 0.55 10^3/uL (0.1-0.8); Absolute Neutrophil Count 1.88 10^3/uL (1.2-6.7); Basophils % 0.8 %; Eosinophils % 4.8 %; HCT 32.4 % (40.0-50.0); HGB 10.5 g/dL (13.5-17.5); Immature Grans % 0.8 %; Lymphocytes % 28.4 %; MCH 29.7 pg (27.0-33.0); MCHC 32.4 % (32.0-36.0); MCV 92 fL (80-95); MPV 10.4 fL (8.0-11.0); Monocytes % 14.7 %; Neutrophils % 50.5 %; Platelet Count 161 10^3/uL (130-400); RBC 3.54 10^6/uL (4.36-5.78); RDW 13.1 % (11.8-14.1); RDW-SD 44.3 fL; WBC 3.73 10^3/uL (4.4-10.8)
[2024-04-09 08:58] LABS: Anion Gap 13.5 mmol/L (3-11); BUN 79 mg/dL (7-18); CO2 19.5 mmol/L (21.0-32.0); Calcium 8.5 mg/dL (8.5-10.1); Chloride 104 mmol/L (98-107); Estimated GFR 11.13 (mL/min/1.73m2); Glucose 112 mg/dL (74-106); Potassium 4.6 mmol/L (3.5-5.1); Sodium 137 mmol/L (136-145)
[2024-04-09 09:01] LABS: CREATININE 5.2 mg/dL (0.70-1.30); Vancomycin, Random 9.3 ug/mL
[2024-04-09] MEDS: Metoprolol 50 MG TAB PO (10:03)
[2024-04-09 10:04] VITALS: BP 149/75; PULSE 61
--- NOTE | 2024-04-09 10:11 | PDOC.CMIN ---
Date of service: 04/09/24 Time of Service: 10:11 Care Management Initial Assmt Initial Assessment Reason for Hospitalization: Bacteremia Functional Status/Living Situation Town of Residence: [place] Resides with: Spouse (Jaki) Employment Status: Retired Medications Medication Management: No Issues/Barriers identified Advance Directives Advance Directives: Do you have an Advance Directive: N 10/17/16 11:28 AD On File at [facility]: N 10/17/16 11:28 Date Asked 04/07/24 04/07/24 09:22 AD Date Reviewed COLST On File at [facility] COLST Date Scanned Code Status Resuscitation Status Full Code Insurance Coverage/Financial Issues Insurance: Medicare BC/ Care Team Visit Care Team Role Provider Type Belle Garcia Primary Care Provider NON-[facility] STAFF PHYSICIAN Autumn Washington, GERMÁN, CDCES Other Providers BILLET HEATER Shannon Crump, DPM Other Providers DPM [facility] STAFF PHYSICIAN Pat Mcnulty Other Providers BILLET HEATER Wally Nix, HYPO DIPPER Other Providers CERT REG NURSE DENTAL PRACTITIONER Jose Alfredo Cleaning, DPM Other Providers [facility] STAFF PHYSICIAN Nestor Wells RDN Other Providers BILLET HEATER Homar Arteaga MD Emergency Provider [facility] STAFF PHYSICIAN Joao Roche MD Admit Provider [facility] STAFF PHYSICIAN Attending Provider Discharge Potential Discharge Needs: Other ([place] [facility] Anticipated Barriers to Discharge: Bed availability Patient/Family Education Needs: Other Transportation: EMS Plan: Anticipate Xavier will be transferred to Vascular Surgery at [facility] when a bed becomes available. He will follow up with the facility providers and plan of care and transport via EMS coordinated by the nursing dry starch supervisor. CM will assist with the coordination of the transfer.t PFSH All Active Problems (Updated 04/08/24 @ 16:01 by Isabel Palomino APRN) Acute kidney injury superimposed on CKD (Acute) Anemia (Chronic) On deep vein thrombosis (DVT) prophylaxis (Acute) Diabetes (Chronic) Open wound of right great toe (Acute) Ulcer of right foot with fat layer exposed (Acute) Chronic kidney disease (Chronic) Bacteremia (Acute) Nausea & vomiting (Acute) Tubular adenoma (Acute ~02/21/23) Screen for colon cancer (Acute) Cough (Acute) Kidney transplant candidate (Acute) Critical lower limb ischemia (Acute) Urinary retention (Acute) Hypertension (Chronic) Stage 4 chronic kidney disease due to diabetes mellitus (Acute) CKD (chronic kidney disease) stage 4, GFR 15-29 ml/min (Acute) Family history of colon cancer in father (Acute) Medical History History of osteomyelitis CAD (coronary artery disease) Arteriosclerotic cardiovascular disease (ASCVD) Aortic stenosis Status post aortic valve replacement in 2020?bioprosthetic Hyperlipidemia Cellulitis PVD (peripheral vascular disease) Delayed surgical wound healing of [id number]-nnd-hcsy amputation stump HUY (acute kidney injury) Decubitus ulcer of sacral region, stage 1 Amputated great toe of right foot Colon polyps Cardiac murmur Type 2 diabetes mellitus Surgical History History of colonoscopy with polypectomy (~02/21/23) S/P aortic valve replacement with bioprosthetic valve 2020 S/P CABG (coronary artery bypass graft) x4 2020 History of left below knee amputation Social History Smoking/Tobacco Use Status: Never Smoking risk assessment performed?: Yes Alcohol Intake: former Drug use: Never Substance use type: does not use Housing: house Do you feel safe at home: Yes Do you feel safe in your relationship?: Yes Additional Social history: at side, very supportive. SDOH(Care Management) Screening Will the Patient Participate in the Screening?: Yes Do you worry about having a steady place to live?: no In the past 12 months, have you had to go without electric, gas, oil or water in your home?: no Have you or anyone in your house had to go without enough food to eat?: no Has lack of transportation kept you from medical appointments or from doing things needed for daily living?: no Has anyone in your support network made you feel unsafe for any reason?: no
--- NOTE | 2024-04-09 10:20 | PGE_ITS ---
Date of Service Date of service: 04/09/24 Time of Service: 09:00 Assessment and Plan Assessment and plan (1) Ulcer of right foot with fat layer exposed: Status: Acute (2) History of left below knee amputation: (3) Stage 4 chronic kidney disease due to diabetes mellitus: Status: Acute (4) Bacteremia: Status: Acute Assessment and plan: Patient was seen bedside today. Chart reviewed. MRI suspicious for osteomyelitis. Will require IV antibiotics for [address] [place] [facility] [place] transfer for angioplasty possible surgical intervention. Vascular status is poor. I do not recommend Podiatric surgical intervention prior to Vascular intervention considering the toe currently is stable. Does require IV antibiotics and potentially surgical intervention in the near future pending Vascular, considering this toe wound is likely the source of Bacteremia. Subjective Subjective Interval history since last seen: Patient seen bedside. Resting comfortably. No complaints. Objective Last Vital Signs Temp 97.5 F L 04/09/24 07:43 Pulse 61 04/09/24 10:04 Resp 14 04/09/24 07:43 BP 149/75 H 04/09/24 10:04 Pulse Ox 98 04/09/24 07:43 Laboratory Results - last 24 hr 04/08/24 04/09/24 10:50 06:42 WBC 4.12 L 3.73 L RBC 3.58 L 3.54 L Hgb 10.7 L 10.5 L Hct 31.5 L 32.4 L MCV 88 92 D MCH 29.9 29.7 MCHC 34.0 32.4 RDW 13.0 13.1 Plt Count 175 161 MPV 10.0 10.4 Immature Gran % 0.5 0.8 Neutrophils % 68.2 50.5 Lymphocytes % 16.3 28.4 Monocytes % 11.4 14.7 Eosinophils % 2.9 4.8 Basophils % 0.7 0.8 Nucleated RBC % 0.0 0.0 Absolute Neutrophils 2.81 1.88 Absolute Lymphocytes 0.67 L 1.06 L Absolute Monocytes 0.47 0.55 Absolute Eosinophils 0.12 0.18 Absolute Basophils 0.03 0.03 Sodium 138 137 Potassium 4.1 4.6 Chloride 104 104 Carbon Dioxide 21.2 19.5 L Anion Gap 12.8 H 13.5 H BUN 67 H 79 H Creatinine 4.6 H* 5.2 H* Est GFR (CKD-EPI 2020) 12.89 11.13 Glucose 182 H 112 H Calcium 8.5 8.5 Random Vancomycin 9.3 Time Spent with Patient Time Spent with Patient: 35-49 minutes Time was spent: preparing to see the patient(eg.review tests), obtaining and/or reviewing separately otained hiistory, referring, communicating with other health personal care home administrator, indepentently interpreting results, counseling the patient, care coordination and other
[2024-04-09 11:45] VITALS: BP 130/61; PULSE 51; RESP 20; TEMP 36.7; O2SAT 98
--- NOTE | 2024-04-09 11:56 | W.PM.PROGNOT ---
Date of Service Date of service: 04/09/24 Time of Service: 11:56 Exam Narrative Exam Narrative: HENMT. Facial structures with normal appearance Neuro:alert and oriented to self X4 Resp: Normal respiratory pattern, speaks in full sentences, unlabored breathing, clear lung bilaterally Cardio: regular rhythm, S1, S2, no murmur, capillary refill<3 sec.radial pulses and right pedal pulse positive, stronger proximally GI: Abdomen is not distended, soft and non tender, bowel sounds are present Integumentary: opened wound to right great toe, no wound to other toes of the right foot, Left BKA Psych: RASS 0, congruent mood and normal affect. Objective Last Vital Signs Temp 36.7 C 04/09/24 11:45 Pulse 51 L 04/09/24 11:45 Resp 20 04/09/24 11:45 BP 130/61 04/09/24 11:45 Pulse Ox 98 04/09/24 11:45 Laboratory Results - last 24 hr 04/09/24 06:42 WBC 3.73 L RBC 3.54 L Hgb 10.5 L Hct 32.4 L MCV 92 D MCH 29.7 MCHC 32.4 RDW 13.1 Plt Count 161 MPV 10.4 Immature Gran % 0.8 Neutrophils % 50.5 Lymphocytes % 28.4 Monocytes % 14.7 Eosinophils % 4.8 Basophils % 0.8 Nucleated RBC % 0.0 Absolute Neutrophils 1.88 Absolute Lymphocytes 1.06 L Absolute Monocytes 0.55 Absolute Eosinophils 0.18 Absolute Basophils 0.03 Sodium 137 Potassium 4.6 Chloride 104 Carbon Dioxide 19.5 L Anion Gap 13.5 H BUN 79 H Creatinine 5.2 H* Est GFR (CKD-EPI 2020) 11.13 Glucose 112 H Calcium 8.5 Random Vancomycin 9.3
[2024-04-09] MEDS: CEFEPIME 2 GM in Normal Saline 100 ML IVPB (12:14)
--- NOTE | 2024-04-09 12:22 | W.PM.DS.N ---
Date of service: 04/09/24 Time of Service: 12:22 DS: Diagnosis Discharge Diagnosis (1) Ulcer of right foot with fat layer exposed: Status: Acute (2) History of left below knee amputation: (3) Stage 4 chronic kidney disease due to diabetes mellitus: Status: Acute (4) Bacteremia: Status: Acute Discharge Plan Disposition Patient Disposition: Transfer-Acute Inpatient Care Specific Acute Inpt Facility: [facility] [place] Condition: Stable Condition: Improving Discharge Details Reason For Visit: Gram positive bacteremia, fever, fatigue Admit Date/Time: 04/07/24 13:12 Admit Provider: Joao Roche Attending Provider: Joao Roche Primary Care Provider: Belle Garcia [facility] Course Hospital Course: This 69 years old male with past medical history including limited to insulin-dependent diabetes mellitus, CKD stage IV, CAD, status post CABG, hyperlipidemia, status post aortic valve replacement with bioprosthetic valve, peripheral vascular disease, left below the knee amputation, prostate cancer on Lupron with a recent visit to the emergency room 2 days prior to presentation with complaints of nausea vomiting and chills syndrome with reassuring labs with plan for outpatient follow-up presented to the ED at [facility] on 04/07/2024 with complaints of lack of energy and fatigue, feeling feverish at times with heart and cold spells. The patient denied dysuria, chest pain or shortness of breath but reported mild headache without neck pain or stiffness. Blood cultures done on 04/01/2024 growing gram-positive rods as a preliminary result reported on 04/06/2024. Workup in the ED the was significant for WBC of 4.34, creatinine of 4.0 around baseline, procalcitonin was negative chest x-ray was negative for acute findings. Blood cultures x 4 were drawn in the ED. Echocardiogram ultrasound revealed no vegetations but recommendation for KARSON if clinical suspicion for endocarditis were to persist. LVEF was 70% with normal RV function and well-seated with normal function bioprosthetic aortic valve. In the ED the patient was treated with IV vancomycin and cefepime. The hospitalist was consulted and the patient was admitted for gram-positive bacteremia, fatigue and weakness. Patient denied lightheadedness, dizziness, nasal congestion, cough, chest pain or abdominal pain, vomiting, diarrhea or dysuria. Patient mentioned right great toe with drainage during dressing change completed by his . This wound has been followed by vascular at [facility]. The patient is a full code. Dr. Crump from Podiatry was consulted, right great toe cultures were completed. Imaging for the right foot great toe pointed to osteomyelitis.Dr. Crump discussd the case with Dr Hurley and the patient was accepted to [facility] by Dr. Hurley from vascular. the patient was treated with vancomycin and cefepime, blood cultures from 04/01/2024 still showed one bottle with anaerobic gram positive rods as of today. Labs to fax microbiology reports to [facility]. Other blood cultures are negative at 24 hour today as of 13:39. Gram stain on the wound completed on 04/08/2024 showed rare Gram positive cocci. Images were forwarded to [facility]. The patient developped HUY super imposed on CKD not responding to IV hydration with Cr going from 4.0, to 4.6 then 5.2 with BUN going from 57, to 67, then to 79. Worsening leukopenia with WBC at 3.73 noted with normotension and normothermia. Discussed with Dr. Ramos. Home Meds and New Rx's Prescriptions: No Action Levemir FlexPen 100 unit/mL (3 mL) insulin pen 30 unit subcut QAM Patient Comments: none today r/t hypoglycemia Levemir FlexPen 100 unit/mL (3 mL) insulin pen 40 unit subcut QHS Patient Comments: none today r/t hypoglycemia Novolin R FlexPen 100 unit/mL (3 mL) insulin pen 1 sliding scale dose subcut USEASDIRECTD Patient Comments: none today r/t hypoglycemia clopidogrel 75 mg tablet 75 mg PO DAILY prazosin 2 mg capsule 2 mg PO BID aspirin 81 MG tablet,delayed release (DR/EC) 81 mg PO DAILY pregabalin [Lyrica] 100 mg Capsule 100 mg PO BID sodium bicarbonate 650 mg tablet 650 mg PO BID Patient Comments: TAKE 1 TABLET BY MOUTH TWICE A DAY zolpidem 5 mg tablet 5 mg PO QHS PRN Patient Comments: TAKE 1 TABLET BY MOUTH EVERY DAY AT BEDTIME NEEDED atorvastatin 20 mg tablet 20 mg PO DAILY Patient Comments: TAKE 1 TABLET BY MOUTH EVERY DAY furosemide 40 mg tablet 40 mg PO BID Patient Comments: TAKE 1 TABLET BY MOUTH TWICE A DAY amlodipine 10 mg tablet 10 mg PO DAILY Patient Comments: TAKE 1 TABLET BY MOUTH EVERY DAY insulin glargine [Lantus Solostar U-100 Insulin] 100 unit/mL (3 mL) insulin pen 30 unit SUBCUT QAM Patient Comments: INJECT 30-60 UNIT SUBCUTANEOUSLY 2 TIMES A DAY 26 units QHS acetaminophen 500 mg Tablet 1,000 mg PO Q6H PRN Victoza 2-Jimmy 0.6 mg/0.1 mL (18 mg/3 mL) Pen Injector 1.8 mg SUBCUT Q24H metoprolol tartrate 50 mg tablet 50 mg PO BID Patient Comments: TAKE 1 TABLET BY MOUTH TWICE A DAY Discharge Instructions Activity:: Activity as Tolerated Equipment/Supplies:: No Equipment Needed Diet:: heart healthy diabetic DS: Summary Time Spent with Patient providing and/or coordinating discharge services: Greater than 30 minutes Status at Discharge Functional status at discharge: independent ambulation Overall status at discharge: patient is back to baseline Mental Status: mental status grossly normal Speech and Movement: speech and movement normal Mood: congruent mood Affect: normal affect Quality:SDOH Health Related Social Needs: No Data to Display Exam Narrative Exam Narrative: HENMT. Facial structures with normal appearance Neuro:alert and oriented to self X4 Resp: Normal respiratory pattern, speaks in full sentences, unlabored breathing, clear lung bilaterally Cardio: regular rhythm, S1, S2, no murmur, capillary refill<3 sec.radial pulses and right pedal pulse positive, stronger proximally GI: Abdomen is not distended, soft and non tender, bowel sounds are present Integumentary: opened wound to right great toe, no wound to other toes of the right foot- dressing DCI, Left BKA Psych: RASS 0, congruent mood and normal affect. Psych Mental Status: mental status grossly normal Speech and Movement: speech and movement normal Mood: congruent mood Affect: normal affect DS: Data Vitals/I&O Vitals and I&O: Vital Signs Temperature 36.7 C 04/09/24 11:45 Temperature Source Temporal Artery Scan 04/09/24 11:45 Pulse 51 L 04/09/24 11:45 Pulse Rhythm Regular 04/09/24 11:07 Respiratory Rate 20 04/09/24 11:45 Respiratory Effort Normal, Non-Labored 04/09/24 11:07 Respiratory Depth Normal 04/09/24 11:07 Respiratory Pattern Normal 04/09/24 11:07 Blood Pressure 130/61 04/09/24 11:45 Blood Pressure Position Sitting 04/07/24 09:26 Pulse Oximetry 98 04/09/24 11:45 Oxygen Delivery Method Room Air 04/09/24 11:45 Oxygen Flow Rate 0 04/09/24 11:45 Pain Level 0 04/09/24 11:45 Comment MAP 69 04/08/24 00:59 Intake & Output 04/08/24 04/09/24 04/09/24 23:59 11:59 23:59 Intake Total 570 / 1470 Output Total 100 / 200 Balance 470 / 1270 Intake: IV 110 / 110 Oral 460 / 1360 Output: Urine 100 / 200 Other: Urine Color Light Eva Yellow Urine Appearance Clear Clear Urine Odor Normal Comment reported per patient Stool Size Small Stool Characteristics Liquid Voiding Methods Toilet Data Completed and Pending Labs on day of discharge: Labs from last 24 hours 04/09/24 06:42 WBC 3.73 L RBC 3.54 L Hgb 10.5 L Hct 32.4 L MCV 92 D MCH 29.7 MCHC 32.4 RDW 13.1 Plt Count 161 MPV 10.4 Immature Gran % 0.8 Neutrophils % 50.5 Lymphocytes % 28.4 Monocytes % 14.7 Eosinophils % 4.8 Basophils % 0.8 Nucleated RBC % 0.0 Absolute Neutrophils 1.88 Absolute Lymphocytes 1.06 L Absolute Monocytes 0.55 Absolute Eosinophils 0.18 Absolute Basophils 0.03 Sodium 137 Potassium 4.6 Chloride 104 Carbon Dioxide 19.5 L Anion Gap 13.5 H BUN 79 H Creatinine 5.2 H* Est GFR (CKD-EPI 2020) 11.13 Glucose 112 H Calcium 8.5 Random Vancomycin 9.3 04/08/24 17:14 Foot - Right Anaerobic Culture - Pending Preliminary micro results at discharge 04/08/24 11:25 Wound Culture - Preliminary Toe - Right Big Toe 04/08/24 17:14 Anaerobic Culture - Pending Foot - Right 04/07/24 12:27 Blood Culture - Preliminary Blood NO GROWTH 24 HOURS 04/07/24 10:53 Blood Culture - Preliminary Blood NO GROWTH 24 HOURS 04/07/24 10:27 Blood Culture - Preliminary Blood NO GROWTH 24 HOURS PFSH All Active Problems (Updated 04/08/24 @ 16:01 by Isabel Palomino APRN) Acute kidney injury superimposed on CKD (Acute) Anemia (Chronic) On deep vein thrombosis (DVT) prophylaxis (Acute) Diabetes (Chronic) Open wound of right great toe (Acute) Ulcer of right foot with fat layer exposed (Acute) Chronic kidney disease (Chronic) Bacteremia (Acute) Nausea & vomiting (Acute) Tubular adenoma (Acute ~02/21/23) Screen for colon cancer (Acute) Cough (Acute) Kidney transplant candidate (Acute) Critical lower limb ischemia (Acute) Urinary retention (Acute) Hypertension (Chronic) Stage 4 chronic kidney disease due to diabetes mellitus (Acute) CKD (chronic kidney disease) stage 4, GFR 15-29 ml/min (Acute) Family history of colon cancer in father (Acute) Medical History History of osteomyelitis CAD (coronary artery disease) Arteriosclerotic cardiovascular disease (ASCVD) Aortic stenosis Status post aortic valve replacement in 2020?bioprosthetic Hyperlipidemia Cellulitis PVD (peripheral vascular disease) Delayed surgical wound healing of fzgiv-cun-daru amputation stump HUY (acute kidney injury) Decubitus ulcer of sacral region, stage 1 Amputated great toe of right foot Colon polyps Cardiac murmur Type 2 diabetes mellitus Surgical History History of colonoscopy with polypectomy (~02/21/23) S/P aortic valve replacement with bioprosthetic valve 2020 S/P CABG (coronary artery bypass graft) x4 2020 History of left below knee amputation Social History Smoking/Tobacco Use Status: Never Smoking risk assessment performed?: Yes Alcohol Intake: former Drug use: Never Substance use type: does not use Housing: house Do you feel safe at home: Yes Do you feel safe in your relationship?: Yes Additional Social history: at side, very supportive. Time Spent with Patient Time Spent with Patient: >85 minutes Time was spent: preparing to see the patient(eg.review tests), obtaining and/or reviewing separately otained hiistory, ordering medications,tests, procedures, referring, communicating with other health rn palliative care, indepentently interpreting results, counseling the patient and care coordination
[2024-04-09] MEDS: VANCOMYCIN 500 MG in Normal Saline 100 ML 100 MG IVPB (13:14)
--- NOTE | 2024-04-09 13:44 | NUR.NOTE ---
Nursing Note: RN to RN report given to Isabel Carbajal RN @ [facility] [place] [place]. Denied further questions.
--- NOTE | 2024-04-09 14:16 | CMPROGNOTE_ITS ---
Date of service: 04/09/24 Time of Service: 14:16 Care Management Progress Note Progress Note Text Progress Note Text: Xavier was admitted on 04/09/24 with bacteremia and fever. He has an infected toe and multiple medical problems. After consultation with a vascular surgeon [place] [facility], the provider made the decision to transfer him to the vascular service at [facility]. He has been accepted in transfer to Dr. Hurley's service and will transport via EMS coordinated by nursing public relations supervisor. SDOH(Care Management) Screening Will the Patient Participate in the Screening?: Yes Do you worry about having a steady place to live?: no In the past 12 months, have you had to go without electric, gas, oil or water in your home?: no Have you or anyone in your house had to go without enough food to eat?: no Has lack of transportation kept you from medical appointments or from doing things needed for daily living?: no Has anyone in your support network made you feel unsafe for any reason?: no
== END 2024-04-09 13:35 | disposition short-term general hospital (02) | DRG 593 ==
LOC: ER 14:07 → MS 14:30
PROVIDERS: Nurse Practitioner Acute Care; Admitting Provider Family Medicine; Emergency Provider Student in an Organized Health Care Education/Training Program; PCP Family Medicine; Visit Provider Family Medicine
DX: L97.512 Non-pressure chronic ulcer of other part of right foot with fat layer exposed (principal); M86.171 Other acute osteomyelitis, right ankle and foot; N17.9 Acute kidney failure, unspecified; N18.4 Chronic kidney disease, stage 4 (severe); R78.81 Bacteremia; Z89.512 Acquired absence of left leg below knee; E11.22 Type 2 diabetes mellitus with diabetic chronic kidney disease; I12.9 Hypertensive chronic kidney disease with stage 1 through stage 4 chronic kidney disease, or unspecified chronic kidney disease; E78.5 Hyperlipidemia, unspecified; D64.9 Anemia, unspecified; Z79.4 Long term (current) use of insulin; Z95.3 Presence of xenogenic heart valve; D72.819 Decreased white blood cell count, unspecified; R33.9 Retention of urine, unspecified; Z80.0 Family history of malignant neoplasm of digestive organs; I25.10 Atherosclerotic heart disease of native coronary artery without angina pectoris; I73.9 Peripheral vascular disease, unspecified
CPT/HCPCS: 97597; 00123; 36415; 36416; 80048; 80053; 82962; 84145; 85652; 87040; 93005; 96365; 96366; 96367; 99222; 99232; 99285; 71046; 73630; 73720; 80202; 81003; 81015; 83605; 85025; 86140; 87070; 87075; 87205; 93010; 93306; 99223; 99233; 99239; J0692; J1644; J1815; J3370; J3372

== ENCOUNTER 2024-04-16 01:49 | Outpatient (CLI) | payer MEDICARE, BC, SELFPAY ==
[2024-04-16 12:15] LABS: Calcium 9.1 mg/dL (8.5-10.1); Chloride 105 mmol/L (98-107); Estimated GFR 11.95 (mL/min/1.73m2); Glucose 235 mg/dL (74-106); Potassium 5.4 mmol/L (3.5-5.1); Sodium 139 mmol/L (136-145)
[2024-04-16 12:34] LABS: CREATININE 4.9 mg/dL (0.70-1.30)
[2024-04-16 14:05] LABS: BUN 85 mg/dL (7-18)
== END 2024-04-16 01:50 | disposition home or self-care (01) ==
LOC: LBO 01:50
PROVIDERS: PCP Family Medicine; Visit Provider Family Medicine
DX: N18.9 Chronic kidney disease, unspecified (principal)
CPT/HCPCS: 36415; 80048

== ENCOUNTER 2024-04-19 15:45 | Outpatient (REF) | payer MEDICARE, BC, SELFPAY ==
[2024-04-27 17:17] LABS: Testosterone, Free 0.13 ng/dL (3.28-12.2); Testosterone, Total <7.0 ng/dL (240-950)
== END 2024-04-19 15:46 | disposition home or self-care (01) ==
LOC: NCHCN 15:45
PROVIDERS: PCP Family Medicine; Visit Provider Family Medicine
DX: C61 Malignant neoplasm of prostate (principal)
CPT/HCPCS: 84402; 84403; 84154

== ENCOUNTER 2024-04-29 01:54 | Outpatient (CLI) | payer MEDICARE, SELFPAY ==
[2024-04-29 12:51] LABS: Abs Immature Grans 0.03 10^3/uL (0.0-0.06); Absolute Basophil Count 0.02 10^3/uL (0.0-0.2); Absolute Eosinophil Count 0.12 10^3/uL (0.0-0.7); Absolute Lymphocyte Count 0.94 10^3/uL (1.2-3.4); Absolute Monocyte Count 0.43 10^3/uL (0.1-0.8); Absolute Neutrophil Count 2.22 10^3/uL (1.2-6.7); Basophils % 0.5 %; Eosinophils % 3.2 %; HCT 29.4 % (40.0-50.0); HGB 9.7 g/dL (13.5-17.5); Immature Grans % 0.8 %; MCH 29.8 pg (27.0-33.0); MCV 91 fL (80-95); MPV 11.2 fL (8.0-11.0); Monocytes % 11.4 %; Neutrophils % 59.1 %; Platelet Count 149 10^3/uL (130-400); RBC 3.25 10^6/uL (4.36-5.78); RDW 13.2 % (11.8-14.1); RDW-SD 43.8 fL; WBC 3.76 10^3/uL (4.4-10.8)
[2024-04-29 13:45] LABS: Albumin 3.1 g/dL (3.4-5.0); Anion Gap 8.7 mmol/L (3-11); BUN 76 mg/dL (7-18); CO2 25.3 mmol/L (21.0-32.0); Chloride 107 mmol/L (98-107); Estimated GFR 12.56 (mL/min/1.73m2); Glucose 187 mg/dL (74-106); PHOSPHORUS 6.1 mg/dL (2.6-4.7); Potassium 5.3 mmol/L (3.5-5.1); Sodium 141 mmol/L (136-145); Uric Acid 6.2 mg/dL (3.5-7.2)
[2024-04-29 13:47] LABS: Iron 67 ug/dL (65-175); Total Iron Binding Capacity 218 ug/dL (250-450); Transferrin Sat 31 % (20-55)
[2024-04-29 13:53] LABS: CREATININE 4.7 mg/dL (0.70-1.30)
[2024-04-29 14:35] LABS: Ferritin 209 ng/mL (26-388); Vitamin B12 251 pg/mL (193-986)
[2024-04-29 22:59] LABS: Parathyroid Hormone,Intact 230 pg/mL (19-88)
== END 2024-04-29 01:55 | disposition home or self-care (01) ==
LOC: LBO 01:54
PROVIDERS: PCP Family Medicine; Visit Provider Internal Medicine
DX: N18.5 Chronic kidney disease, stage 5 (principal)
CPT/HCPCS: 36415; 80048; 82040; 82565; 82607; 82728; 82746; 83540; 83550; 83970; 84100; 84156; 84550; 85025

== ENCOUNTER 2024-05-05 02:37 | Outpatient (RCR) | payer MEDICARE, BC, SELFPAY ==
[2024-05-05] MEDS: Darbepoetin 25 MCG SYR SC (10:01)
== END 2024-05-22 23:59 | disposition home or self-care (01) ==
LOC: INF 02:37
PROVIDERS: PCP Family Medicine; Visit Provider Family Medicine
DX: N18.4 Chronic kidney disease, stage 4 (severe) (principal); D63.1 Anemia in chronic kidney disease
CPT/HCPCS: 96372; J0881

== ENCOUNTER 2024-05-07 01:50 | Outpatient (CLI) | payer MEDICARE, SELFPAY ==
[2024-05-07 11:27] LABS: Abs Immature Grans 0.09 10^3/uL (0.0-0.06); Absolute Basophil Count 0.04 10^3/uL (0.0-0.2); Absolute Lymphocyte Count 1.08 10^3/uL (1.2-3.4); Absolute Monocyte Count 0.47 10^3/uL (0.1-0.8); Absolute Neutrophil Count 2.61 10^3/uL (1.2-6.7); Basophils % 0.9 %; Eosinophils % 2.3 %; HCT 33.4 % (40.0-50.0); HGB 10.9 g/dL (13.5-17.5); Immature Grans % 2.1 %; Lymphocytes % 24.6 %; MCH 29.5 pg (27.0-33.0); MCHC 32.6 % (32.0-36.0); MCV 90 fL (80-95); MPV 10.8 fL (8.0-11.0); Monocytes % 10.7 %; Neutrophils % 59.4 %; Platelet Count 192 10^3/uL (130-400); RDW 13.6 % (11.8-14.1); RDW-SD 44.3 fL; WBC 4.39 10^3/uL (4.4-10.8)
[2024-05-07 11:59] LABS: ALT 34 U/L (16-63); AST 24 U/L (15-37); Albumin 3.3 g/dL (3.4-5.0); Alkaline Phosphatase 104 U/L (46-116); Anion Gap 10.5 mmol/L (3-11); BUN 62 mg/dL (7-18); Bilirubin, Total 0.32 mg/dL (0.2-1.0); CO2 25.5 mmol/L (21.0-32.0); Chloride 107 mmol/L (98-107); Estimated GFR 11.39 (mL/min/1.73m2); Glucose 134 mg/dL (74-106); Potassium 5.3 mmol/L (3.5-5.1); Sodium 143 mmol/L (136-145); Total Protein 7.4 g/dL (6.4-8.2)
[2024-05-07 12:57] LABS: CREATININE 5.1 mg/dL (0.70-1.30)
[2024-05-10 21:58] LABS: PSA, Ultrasensitive <0.01 ng/mL (<= 6.5)
[2024-05-13 09:53] LABS: Testosterone, Total 11 ng/dL (240-950)
== END 2024-05-07 01:51 | disposition home or self-care (01) ==
PROVIDERS: PCP Family Medicine; Visit Provider Physician Assistant
DX: C61 Malignant neoplasm of prostate (principal)
CPT/HCPCS: 36415; 80053; 84153; 84403; 85025

== ENCOUNTER 2024-06-01 01:43 | Outpatient (RCR) | payer MEDICARE, BC, SELFPAY ==
[2024-06-01 11:42] LABS: HCT 29.5 % (40.0-50.0); HGB 9.5 g/dL (13.5-17.5)
[2024-06-01] MEDS: Darbepoetin 25 MCG SYR SC (12:00)
== END 2024-06-21 23:59 | disposition home or self-care (01) ==
LOC: INF 01:43
PROVIDERS: PCP Family Medicine; Visit Provider Family Medicine
DX: D63.1 Anemia in chronic kidney disease (principal); N18.4 Chronic kidney disease, stage 4 (severe)
CPT/HCPCS: 36415; 96372; 85014; 85018; J0881

== ENCOUNTER 2024-06-24 20:28 | Inpatient (IN) | payer MEDICARE, BC, SELFPAY ==
[2024-06-24] VITALS (37 sets, daily range): BP systolic 149–222; BP diastolic 47–114; PULSE 66–125; RESP 10–36; TEMP 37.2; O2SAT 86–97
--- NOTE | 2024-06-24 20:30 | RT.EKG_ITS ---
APPROVED REPORT Exam: Resting ECG Reason for Exam: SOB Patient Location: E HR:81 bpm ECG Measurements Heart Rate 81 AXIS HI 205 P 50 QRSd 141 QRS 6 QT 415 T -17 QTc 475 Conclusion Sinus rhythm...normal P axis, V-rate 60- 99 Atrial premature complexes...SV complexes w/ short R-R intvls Right bundle branch block...QRSd>120, terminal axis(90,270) Repol abnrm suggests ischemia, diffuse leads...ST-T neg, ant/lat/inf
--- NOTE | 2024-06-24 21:02 | ED.GENADUL_ITS ---
Discharge Plan Disposition Patient Disposition: Admit to [facility] Discharge Details Chief Complaint: RespSymp Clinical Impression: Acute on chronic kidney failure, Breath shortness, Pulmonary edema, Elevated troponin, Acute hypoxemic respiratory failure Primary Care Provider: Belle Garcia ED Provider: Santiago Baig Home Meds and New Rx's Prescriptions: No Action Levemir FlexPen 100 unit/mL (3 mL) insulin pen 30 unit subcut QAM Patient Comments: none today r/t hypoglycemia Levemir FlexPen 100 unit/mL (3 mL) insulin pen 40 unit subcut QHS Patient Comments: none today r/t hypoglycemia Novolin R FlexPen 100 unit/mL (3 mL) insulin pen 1 sliding scale dose subcut USEASDIRECTD Patient Comments: none today r/t hypoglycemia clopidogrel 75 mg tablet 75 mg PO DAILY prazosin 2 mg capsule 2 mg PO BID aspirin 81 MG tablet,delayed release (DR/EC) 81 mg PO DAILY pregabalin [Lyrica] 100 mg Capsule 100 mg PO BID sodium bicarbonate 650 mg tablet 650 mg PO BID Patient Comments: TAKE 1 TABLET BY MOUTH TWICE A DAY zolpidem 5 mg tablet 5 mg PO QHS PRN Patient Comments: TAKE 1 TABLET BY MOUTH EVERY DAY AT BEDTIME NEEDED atorvastatin 20 mg tablet 20 mg PO DAILY Patient Comments: TAKE 1 TABLET BY MOUTH EVERY DAY furosemide 40 mg tablet 40 mg PO BID Patient Comments: TAKE 1 TABLET BY MOUTH TWICE A DAY amlodipine 10 mg tablet 10 mg PO DAILY Patient Comments: TAKE 1 TABLET BY MOUTH EVERY DAY insulin glargine [Lantus Solostar U-100 Insulin] 100 unit/mL (3 mL) insulin pen 30 unit SUBCUT QAM Patient Comments: INJECT 30-60 UNIT SUBCUTANEOUSLY 2 TIMES A DAY 26 units QHS acetaminophen 500 mg Tablet 1,000 mg PO Q6H PRN liraglutide [Victoza 2-Jimmy] 0.6 mg/0.1 mL (18 mg/3 mL) Pen Injector 1.8 mg SUBCUT Q24H metoprolol tartrate 50 mg tablet 50 mg PO BID Patient Comments: TAKE 1 TABLET BY MOUTH TWICE A DAY HPI General Mode of arrival: EMS . Date/Time Provider Initiated Documentation: 06/24/24 20:47 . Limitations to Documentation: no limitations . Information obtained by: patient, family and EMS . HPI Narrative: 69 years old male with past medical history including limited to insulin- dependent diabetes mellitus, CKD stage IV, CAD, status post CABG, hyperlipidemia, status post aortic valve replacement with bioprosthetic valve, peripheral vascular disease, left below the knee amputation, prostate cancer on Lupron, admission for sepsis in March is now presenting with shortness of breath. Had been doing well. Had even been doing some yard work yesterday without difficulty. Woke up this morning feeling a little short of breath. Progressively worse throughout the day. Got so bad he had to come to the emergency department. He is denying any other symptoms. No chest pain. said he seemed like he was acting a little bit funny. No fevers or chills. No nausea vomiting or abdominal pain. No rashes or lesions. Denies any other complaints. Has CKD and has fistula placed in the left arm and has not started dialysis. No plans according to the patient to start dialysis and apparently they placed this preemptively. Related Data Home Medications ?Medication ?Instructions ?Recorded ?Confirmed aspirin 81 mg tablet,delayed 81 mg PO DAILY 12/30/17 06/24/24 release pregabalin 100 mg capsule (Lyrica) 100 mg PO BID 09/30/19 06/24/24 acetaminophen 500 mg tablet 1,000 mg PO Q6H PRN 10/14/19 06/24/24 liraglutide 0.6 mg/0.1 mL (18 mg/3 1.8 mg subcut Q24H 10/14/19 06/24/24 mL) subcutaneous pen injector (Victoza 2-Jimmy) clopidogrel 75 mg tablet 75 mg PO DAILY 01/29/23 06/24/24 insulin regular human 100 unit/mL 1 sliding scale dose subcut 01/29/23 06/24/24 (3 mL) subcutaneous pen (Novolin R USEASDIRECTD FlexPen) prazosin 2 mg capsule 2 mg PO BID 01/29/23 06/24/24 insulin detemir U-100 100 unit/mL 30 unit subcut QAM 02/10/23 06/24/24 (3 mL) subcutaneous pen (Levemir FlexPen) insulin detemir U-100 100 unit/mL 40 unit subcut QHS 02/10/23 06/24/24 (3 mL) subcutaneous pen (Levemir FlexPen) amlodipine 10 mg tablet 10 mg PO DAILY 04/01/24 06/24/24 atorvastatin 20 mg tablet 20 mg PO DAILY 04/01/24 06/24/24 furosemide 40 mg tablet 40 mg PO BID 04/01/24 06/24/24 insulin glargine 100 unit/mL (3 30 unit subcut QAM 04/01/24 06/24/24 mL) subcutaneous pen (Lantus Solostar U-100 Insulin) sodium bicarbonate 650 mg tablet 650 mg PO BID 04/01/24 06/24/24 zolpidem 5 mg tablet 5 mg PO QHS PRN 04/01/24 06/24/24 metoprolol tartrate 50 mg tablet 50 mg PO BID 04/07/24 06/24/24 Allergies Allergy/AdvReac Type Severity Reaction Status Date / Time No Known Allergies Allergy Verified 06/24/24 20:40 General Stated Complaint: RespSymp DAMION: 3 Review of Systems Constitutional Constitutional: Denies chills, Denies fever(s) and Denies headache(s) Eyes Eyes: Denies change in vision ENT Ears, Nose, Mouth, and Throat: Denies headache(s) and Denies odynophagia Cardiovascular Cardiovascular: Denies chest pain and Reports dyspnea Respiratory Respiratory: Reports dyspnea Gastrointestinal Gastrointestinal: Denies abdominal pain, Denies diarrhea, Denies nausea, Denies odynophagia and Denies vomiting Genitourinary Genitourinary: Denies dysuria Musculoskeletal Musculoskeletal: Denies myalgias Integumentary/Breasts Skin/Breast: Denies changing lesions Neurologic Neurologic: Denies behavioral changes and Denies headache(s) Psychiatric Psychiatric: Denies behavioral changes Endocrine Endocrine: Denies heat intolerance Hematologic/Lymphatic Hematologic/Lymphatic: Denies lymphadenopathy Exam Const General: cooperative Nutritional Appearance: average body habitus Orientation: alert, awake and oriented x3 HENMT Head: normal to inspection Ears: external ears normal Mouth: moist mucous membranes Eyes Pupils: PERRL EOM: EOM intact bilaterally and No nystagmus Neck Neck: full ROM and no tracheal deviation Chest Chest: normal inspection of the chest Resp Other: Coarse breath sounds bilaterally. Some tachypnea but no other increased work of breathing. Cardio Rate: regular rate Rhythm: regular rhythm GI Inspection: normal to inspection Palpation: soft, no guarding, not rigid and nontender Back/Spine/Pelvis Back: No no CVA tenderness Thoracic/Lumbar Spine: thoracic and lumbar spine normal to inspection Skin General skin exam: no rashes or lesions noted Neuro General: patient alert, patient awake and patient oriented x3 Cranial Nerves: CN's II-XI intact bilaterally, PERRL and no nystagmus Cognition: normal cognition Motor: muscle tone normal throughout and strength 5/5 throughout Sensory Exam: no sensory deficits noted Extrem General: normal to inspection Course Consultations Consultation #1: [facility] cardiology Consultation #2: [facility] nephrology Vital Signs Vital signs: Vital Signs Temperature 37.2 C 06/24/24 20:33 Pulse 80 06/24/24 20:33 Respiratory Rate 20 06/24/24 20:33 Blood Pressure 220/90 H 06/24/24 20:33 Pulse Oximetry 94 06/24/24 20:33 Temperature 37.2 C 06/24/24 20:33 Temperature Source Oral 06/24/24 20:33 Pulse 81 06/24/24 20:39 Pulse 77 06/24/24 20:50 Respiratory Rate 23 06/24/24 20:50 Respiratory Effort Short of Breath, Labored, Accessory Muscle Use 06/24/24 20:51 Respiratory Depth Normal 06/24/24 20:50 Blood Pressure 220/90 H 06/24/24 20:39 Blood Pressure Mean 132 06/24/24 20:39 Blood Pressure Position Sitting 06/24/24 20:33 Pulse Oximetry 93 06/24/24 20:50 Respiratory End-tidal CO2 25 06/24/24 20:50 Oxygen Delivery Method Room Air 06/24/24 20:33 Oxygen Flow Rate 0 06/24/24 20:33 Pain Level 0 06/24/24 20:33 Medical Decision Making 69 years old male with past medical history including limited to insulin- dependent diabetes mellitus, CKD stage IV, CAD, status post CABG, hyperlipidemia, status post aortic valve replacement with bioprosthetic valve, peripheral vascular disease, left below the knee amputation, prostate cancer on Lupron, admission for sepsis in March is now presenting with shortness of breath. Certainly concerning for heart failure exacerbation or acute on chronic injury and possible acute renal failure. Will send broad labs. Will send proBNP and chest x-ray. Chest x-ray will also evaluate for pneumonia or pneumothorax. No chest pain so less likely to represent arrhythmia or ACS but will check EKG and cardiac enzymes. Will send broad labs to look for electrolyte or metabolic cause of the patient's symptoms and to evaluate his renal function particularly. Will swab for COVID and flu. Resting comfortably on 2 to 3 L nasal cannula here in the emergency department and we will continue to closely monitor his respiratory status. Will await initial testing and reevaluate. 1154pm Labs with significant abnormalities. Worsening chronic kidney disease with elevated BUN. Potassium slightly elevated. proBNP also elevated. Initial troponin only mildly elevated. Chest x-ray with pneumonia versus edema. No fever or white count or cough to suggest pneumonia so I think it is more likely to represent edema especially considering the patient's clinical picture and history. With the worsening renal dysfunction spoke to [facility] nephrology and spoke to Dr. Karson Diane. Recommending giving 160 mg of IV Lasix and closely monitoring output overnight and closely monitoring his respiratory status but does not think he needs emergent dialysis. The patient's second troponin resulted and was significantly increased from prior on the high-sensitivity troponin assay. He is short of breath but no chest pain. EKG is nonischemic. Spoke with [facility] cardiology. They do not think this represents acute coronary syndrome and unlikely to be secondary to heart failure and think it is likely due to the renal failure. Recommending we trend the troponins but they will likely continue to uptrend until the patient has properly diuresed. They would monitor more closely for any chest pain or other concerning symptoms and repeat EKGs for any changes in his symptoms to look for any signs of ischemia. Spoke with patient and family and they are agreeable to admission. Will speak to the hospitalist for admission. Medical Records Medical records reviewed: Yes I reviewed the patient's medical records. Imaging Data Radiologic Study: Attestation: I personally reviewed and interpreted this imaging study as follows: Imaging: X-Ray (chest) Radiologist's impression: New patchy multifocal airspace disease most pronounced in the left lung base and right midlung zone; concerning for multilobar pneumonia or asymmetric alveolar edema. Lab Data Lab results reviewed: Yes I reviewed the patient's lab results. Labs: Worsening kidney disease with elevated creatinine and BUN. Slightly elevated potassium. High-sensitivity troponin uptrending. ECG Data Attestation: I personally reviewed and interpreted this ECG (s) as follows: Prior ECG tracings: available for review Interpretation: EKG sinus rhythm with no ischemic changes. Similar to priors. Otherwise unremarkable EKG. Quality:SDOH Health Related Social Needs: No Data to Display Critical Care Time Critical Care Time Critical Care Time: Yes Total Critical Care Time: 30 Attestation: I, Santiago Baig, provided 30 minutes of critical care time exclusive of procedure time and documentation. PFSH All Active Problems (Updated 06/25/24 @ 00:05 by Santiago Baig MD) Acute hypoxemic respiratory failure (Acute) Elevated troponin (Acute) Pulmonary edema (Acute) Breath shortness (Acute) Acute on chronic kidney failure (Acute) Acute kidney injury superimposed on CKD (Acute) Anemia (Chronic) Diabetes (Chronic) Open wound of right great toe (Acute) Ulcer of right foot with fat layer exposed (Acute) Bacteremia (Acute) Nausea & vomiting (Acute) Tubular adenoma (Acute ~02/21/23) Screen for colon cancer (Acute) Cough (Acute) Kidney transplant candidate (Acute) Critical lower limb ischemia (Acute) Urinary retention (Acute) Hypertension (Chronic) Stage 4 chronic kidney disease due to diabetes mellitus (Acute) CKD (chronic kidney disease) stage 4, GFR 15-29 ml/min (Acute) Family history of colon cancer in father (Acute) Medical History Chronic kidney disease History of osteomyelitis CAD (coronary artery disease) Arteriosclerotic cardiovascular disease (ASCVD) Aortic stenosis Status post aortic valve replacement in 2020?bioprosthetic Hyperlipidemia Cellulitis PVD (peripheral vascular disease) Delayed surgical wound healing of [id number] amputation stump HUY (acute kidney injury) Decubitus ulcer of sacral region, stage 1 Amputated great toe of right foot Colon polyps Cardiac murmur Type 2 diabetes mellitus Surgical History History of colonoscopy with polypectomy (~02/21/23) S/P aortic valve replacement with bioprosthetic valve 2020 S/P CABG (coronary artery bypass graft) x4 2020 History of left below knee amputation Social History Smoking/Tobacco Use Status: Never Smoking risk assessment performed?: Yes Alcohol Intake: former Drug use: Never Substance use type: does not use Housing: house Do you feel safe at home: Yes Do you feel safe in your relationship?: Yes Additional Social history: at side, very supportive.
[2024-06-24 21:05] LABS: BE (Venous) -7 mmol/L (-2-3); HCO3 (Venous) 19 mmol/L (23-28); O2 Sat (Venous) 96 %; TCO2 (Venous) 18 mmol/L (24-29); pCO2 (Venous) 38 mmHg (41-51); pH (Venous) 7.31 (7.31-7.41); pO2 (Venous) 81 mmHg
--- NOTE | 2024-06-24 21:15 | DI.RAD_ITS ---
Exam(s) XR PORTABLE CHEST AP EXAM: XR PORTABLE CHEST AP CLINICAL HISTORY: sob TECHNIQUE: 2D digital imaging was performed. COMPARISON: CR XR CHEST 2V PA LATERAL from 04/07/2024 FINDINGS: LUNGS: New area of increased density seen at the left lower and right lower and mid lung field. Find ings suspicious for pneumonia. No pleural abnormality seen. HEART: Enlarged, unchanged. Aortic valve prosthesis. Mediastinal vascular clips. AORTA: Normal diameter. BONES: Sternal wires. Soft tissues: Unremarkable. IMPRESSION: Bilateral infiltrates. DATA REPOSITORY: RADIATION DOSE DELIVERED:
[2024-06-24 21:17] LABS: Abs Immature Grans 0.19 10^3/uL (0.0-0.06); Absolute Basophil Count 0.03 10^3/uL (0.0-0.2); Absolute Eosinophil Count 0.03 10^3/uL (0.0-0.7); Absolute Lymphocyte Count 0.88 10^3/uL (1.2-3.4); Basophils % 0.3 %; Eosinophils % 0.3 %; HGB 9.6 g/dL (13.5-17.5); Immature Grans % 1.9 %; Lymphocytes % 8.6 %; MCH 29.3 pg (27.0-33.0); MCV 92 fL (80-95); MPV 11.5 fL (8.0-11.0); Monocytes % 7.8 %; Neutrophils % 81.1 %; Platelet Count 163 10^3/uL (130-400); RBC 3.28 10^6/uL (4.36-5.78); RDW 13.4 % (11.8-14.1); RDW-SD 45.1 fL; WBC 10.23 10^3/uL (4.4-10.8)
[2024-06-24 21:32] LABS: Prothrombin Time 10.5 sec (9.1-11.1)
[2024-06-24 21:38] LABS: ALT 27 U/L (16-63); AST 20 U/L (15-37); Albumin 3.2 g/dL (3.4-5.0); Alkaline Phosphatase 95 U/L (46-116); Anion Gap 13.3 mmol/L (3-11); Bilirubin, Total 0.38 mg/dL (0.2-1.0); CO2 19.7 mmol/L (21.0-32.0); Calcium 8.5 mg/dL (8.5-10.1); Chloride 106 mmol/L (98-107); Estimated GFR 8.21 (mL/min/1.73m2); Glucose 192 mg/dL (74-106); Magnesium 2.6 mg/dL (1.8-2.4); NT-proBNP 6351 pg/mL (<300); Potassium 5.2 mmol/L (3.5-5.1); Sodium 139 mmol/L (136-145); Total Protein 7.4 g/dL (6.4-8.2)
[2024-06-24 21:45] LABS: BUN 97 mg/dL (7-18); CREATININE 6.7 mg/dL (0.70-1.30)
[2024-06-24 21:46] LABS: Troponin I 78 ng/L (<or=76)
[2024-06-24 21:47] LABS: COVID-19 PCR Negative (Negative); Influenza A PCR Negative (Negative); Influenza B PCR Negative (Negative); RSV PCR Negative (Negative)
[2024-06-24 21:49] LABS: Source Nasopharynx
--- NOTE | 2024-06-24 21:54 | DI.VRAD_ITS ---
PROCEDURE INFORMATION: Exam: XR Chest Exam date and time: 06/24/2024 9:13 PM Age: 69 years old Clinical indication: Shortness of breath TECHNIQUE: Imaging protocol: Radiologic exam of the chest. Views: 1 view. COMPARISON: CR XR CHEST 2V PA LATERAL 04/07/2024 11:56 AM FINDINGS: Tubes, catheters and devices: Aortic valvular prosthesis in the expected position. Lungs: New patchy multifocal airspace disease most pronounced in the left lung base and right midlung zone. Low lung volumes. Pleural spaces: No definite pleural effusion. No pneumothorax. Heart/Mediastinum: CABG. Probable mild cardiomegaly would be stable. Bones/joints: Median sternotomy wires. No displaced fracture. IMPRESSION: New patchy multifocal airspace disease most pronounced in the left lung base and right midlung zone; concerning for multilobar pneumonia or asymmetric alveolar edema. Multiple chronic findings as above. Dictated and Authenticated by: Mckayla Hull MD. Ordering:SEBASTIAN Henderson MD
--- NOTE | 2024-06-24 22:15 | RT.EKG_ITS ---
APPROVED REPORT Exam: Resting ECG Reason for Exam: sob Patient Location: E HR:75 bpm ECG Measurements Heart Rate 75 AXIS LA 198 P 9 QRSd 143 QRS -8 QT 430 T 23 QTc 455 Conclusion Sinus rhythm...normal P axis, V-rate 60- 99 Atrial premature complexes in couplets...pair SV complexes w/ short R-R Right bundle branch block...QRSd>120, terminal axis(90,270)
[2024-06-24 22:21] LABS: Troponin I 932 ng/L (<or=76)
[2024-06-24] MEDS: Furosemide 100 MG/10 ML VIAL 160 MG IVP (23:05)
[2024-06-24 23:20] LABS: Bilirubin Negative (Negative); Blood Small (Negative); Clarity Clear (Clear); Glucose 100 mg/dL (Negative); Ketones Negative (Negative); Leukocyte Esterase Negative (Negative); Nitrite Negative (Negative); Urobilinogen 0.2 mg/dL (Up to 0.2); pH 5.5 (5-8)
[2024-06-24 23:28] LABS: Bacteria Negative HPF (Negative); C & S Indicated? No; Casts 0-2 Fine Granular LPF (Negative); Crystals Negative HPF (Negative); Epithelial Cells Rare HPF (Negative); Mucus Trace (Negative); RBC 0-2 HPF (0-2); WBC Negative HPF (0-5)
[2024-06-25] VITALS (214 sets, daily range): BP systolic 99–193; BP diastolic 45–140; PULSE 53–118; RESP 10–35; TEMP 37.4–38.3; O2SAT 92–99
--- NOTE | 2024-06-25 00:25 | HPE_ITS ---
Date of service: 06/25/24 Time of Service: 00:26 Assessment and Plan Assessment and plan (1) Acute hypoxemic respiratory failure: Start date: 06/25/24 Status: Acute Assessment and plan: This is a 69-year-old gentleman with a complicated medical history presenting with what appears to be pulmonary vascular congestion rather than pneumonia and is fine to IV diuretic therapy despite his CKD stage V. He is not having chest pain or any evidence of vascular ischemia though his elevated troponins continue to rise and will be trended to plateau and hopefully start to decrease. Cardiology at [facility] has been contacted and will be reconsulted if patient has symptoms or troponins continue to rise despite treatment of CHF. Will continue on O2 supplementation. His baseline is not having oxygen therapy. He is a full code. (2) Elevated troponin: Start date: 06/25/24 Status: Acute Assessment and plan: Troponin elevated and trending upward now greater than 4000. Patient remains asymptomatic and expected for his troponin to be elevated with CKD and not normalized quickly. Continue follow-up with cardiology and nephrology at [facility] transfer patient is deteriorating. (3) Pulmonary edema: Start date: 06/25/24 Status: Acute Assessment and plan: Most likely pulmonary vascular congestion on chest x-ray with patient on diuretics. Trend hypoxemia and if patient has fever or worsening symptoms consider pneumonic process such as inflammatory disease. Not a candidate for CTA of the chest with his renal failure at this time. This could be done at [facility] with hemodialysis available. He is on thromboembolic prophylaxis. Qualifiers: Chronicity: acute Qualified Code(s): J81.0 - Acute pulmonary edema (4) Arteriosclerotic cardiovascular disease (ASCVD): Assessment and plan: Elevated troponin but patient not having symptoms of acute ischemia. He is status post CABG in the past. He also has a prosthetic aortic valve which is functioning well in March 2024. His last echocardiogram revealed preserved left ventricular jet fraction of 70% in March 2024 at [facility]. Continue consultation with [facility] cardiology. Trend troponins until plateaued and decreasing. (5) Hypertension: Status: Chronic Assessment and plan: Continued adjusted outpatient medical therapy for control. Qualifiers: Hypertension type: primary hypertension Qualified Code(s): I10 - Essential (primary) hypertension (6) Diabetes mellitus with stage V chronic kidney disease: Status: Chronic Assessment and plan: Trend renal functions and treat diabetes with moderate sliding scale corrective insulin holding long-acting insulin for now. (7) Aortic stenosis: Assessment and plan: Status post bioprosthetic AVR and functioning well by last echocardiogram in March 2024. Qualifiers: Cardiac valve disease etiology: etiology unspecified Qualified Code(s): I35.0 - Nonrheumatic aortic (valve) stenosis (8) Anemia: Status: Chronic Assessment and plan: Chronic and stable associated with CKD. Patient should consider Epogen as outpatient with nephrology follow-up. Qualifiers: Anemia type: due to chronic kidney disease Chronic kidney disease stage: stage 5, not on chronic dialysis Qualified Code(s): N18.5 - Chronic kidney disease, stage 5; D63.1 - Anemia in chronic kidney disease (9) PVD (peripheral vascular disease): Assessment and plan: Status post left BKA on Plavix and aspirin which will be continued same. (10) Hyperlipidemia: Assessment and plan: Continue statin therapy as per outpatient medication list. Qualifiers: Hyperlipidemia type: mixed hyperlipidemia Qualified Code(s): E78.2 - Mixed hyperlipidemia History of Present Illness History of Present Illness Chief Complaint: Progressive dyspnea upon exertion with weight gain and peripheral edema. Narrative: This is a 69-year-old male patient with an extensive history of diabetes with advanced CKD stage V have an mature AV fistula in his left arm but not on hemodialysis, recent hospitalization for sepsis in March of this year with hospitalization at [facility] and echocardiogram performed at that time revealing preserved left ventricular ejection fraction of 70%, presenting to the ED with progressive shortness of breath the day of admission. He also noted some slight weight gain since his last hospitalization and peripheral edema. He is physically active working outside mowing his lawn up to his presentation to the ED. His stated that he was acting a little bit funny. He did not have any fever or chills. He is not having abdominal symptoms and no skin lesions or rashes. He denies any chest pain with his exertion but is dyspneic with exertion. He is not on home O2 and was placed on O2 supplementation in the ED and after assessment was given a large dose of Lasix, 160 mg IV with some response. Patient deferred Weaver catheter. He did not have a history of CHF but his BNP was elevated. There is mention of pulmonary hypertension. He does have a history of CABG and bioprosthetic aortic valve replacement but no recent cardiac events. He had no evidence of ischemia in the ED. Nephrology was consulted who said that they would be for transfer if patient responded to IV Lasix for diuresis for what appears to be acute CHF exacerbation. His initial troponins were slightly elevated and repeats were markedly elevated going from below 100 to over 4000 with the third measurement. Cardiology was consulted especially after the third troponin was over [address] Bogdan Ley still did not recommend heparinization without patient having chest pain or evidence of ischemic changes but to continue his usual aspirin and Plavix with trending troponins. With his renal failure and CHF exacerbation and hypoxemia, cardiology advised that his troponins would be elevated but should peak and plateau with treatment of his CHF and would not return to normal over a long period of time because of CKD stage V. If patient has any symptoms of cardiovascular compromise, he will be reevaluated for transfer to [facility] for cardiology and nephrology consultation and care which cannot be provided at this facility. He is a full code. Review of Systems Narrative: 13 point review of systems otherwise unrevealing or stable. PFSH All Active Problems Diabetes mellitus with stage V chronic kidney disease (Chronic) Acute hypoxemic respiratory failure (Acute) Elevated troponin (Acute) Pulmonary edema (Acute) Breath shortness (Acute) Acute on chronic kidney failure (Acute) Acute kidney injury superimposed on CKD (Acute) Anemia (Chronic) Diabetes (Chronic) Open wound of right great toe (Acute) Ulcer of right foot with fat layer exposed (Acute) Bacteremia (Acute) Nausea & vomiting (Acute) Tubular adenoma (Acute ~02/21/23) Screen for colon cancer (Acute) Cough (Acute) Kidney transplant candidate (Acute) Critical lower limb ischemia (Acute) Urinary retention (Acute) Hypertension (Chronic) Family history of colon cancer in father (Acute) Medical History CKD (chronic kidney disease) stage 4, GFR 15-29 ml/min Stage 4 chronic kidney disease due to diabetes mellitus Chronic kidney disease History of osteomyelitis CAD (coronary artery disease) Arteriosclerotic cardiovascular disease (ASCVD) Aortic stenosis Status post aortic valve replacement in 2019?bioprosthetic Hyperlipidemia Cellulitis PVD (peripheral vascular disease) Delayed surgical wound healing of [id number] amputation stump HUY (acute kidney injury) Decubitus ulcer of sacral region, stage 1 Amputated great toe of right foot Colon polyps Cardiac murmur Type 2 diabetes mellitus Surgical History History of colonoscopy with polypectomy (~02/21/23) S/P aortic valve replacement with bioprosthetic valve 2020 S/P CABG (coronary artery bypass graft) x4 2020 History of left below knee amputation Social History Smoking/Tobacco Use Status: Never Smoking risk assessment performed?: Yes Alcohol Intake: former Drug use: Never Substance use type: does not use Housing: house Do you feel safe at home: Yes Do you feel safe in your relationship?: Yes Additional Social history: at side, very supportive. Meds Allergies and Home Medications Allergies Allergy/AdvReac Type Severity Reaction Status Date / Time No Known Allergies Allergy Verified 06/24/24 20:40 Home Medications ?Medication ?Instructions ?Recorded ?Confirmed ?Type aspirin 81 mg tablet,delayed 81 mg PO DAILY 12/30/17 06/24/24 History release pregabalin 100 mg capsule (Lyrica) 100 mg PO BID 09/30/19 06/24/24 History acetaminophen 500 mg tablet 1,000 mg PO Q6H PRN 10/14/19 06/24/24 History liraglutide 0.6 mg/0.1 mL (18 mg/3 1.8 mg subcut Q24H 10/14/19 06/24/24 History mL) subcutaneous pen injector (Victoza 2-Jimmy) clopidogrel 75 mg tablet 75 mg PO DAILY 01/29/23 06/24/24 History insulin regular human 100 unit/mL 1 sliding scale dose subcut 01/29/23 06/24/24 History (3 mL) subcutaneous pen (Novolin R USEASDIRECTD FlexPen) prazosin 2 mg capsule 2 mg PO BID 01/29/23 06/24/24 History insulin detemir U-100 100 unit/mL 40 unit subcut QHS 02/10/23 06/24/24 History (3 mL) subcutaneous pen (Levemir FlexPen) amlodipine 10 mg tablet 10 mg PO DAILY 04/01/24 06/24/24 History atorvastatin 20 mg tablet 20 mg PO DAILY 04/01/24 06/24/24 History furosemide 40 mg tablet 40 mg PO BID 04/01/24 06/24/24 History insulin glargine 100 unit/mL (3 30 unit subcut QAM 04/01/24 06/24/24 History mL) subcutaneous pen (Lantus Solostar U-100 Insulin) sodium bicarbonate 650 mg tablet 650 mg PO BID 04/01/24 06/24/24 History zolpidem 5 mg tablet 5 mg PO QHS PRN 04/01/24 06/24/24 History metoprolol tartrate 50 mg tablet 50 mg PO BID 04/07/24 06/24/24 History Exam Narrative Exam Narrative: General: Patient appears older than stated age, alert and oriented x 3 and in no acute distress. He does appear chronically ill. He is moderately obese. HEENT: Normocephalic, eyes with pupils equal and react to light symmetrically, extraocular move intact and sclera anicteric. Oropharynx with slightly dry mucosa and fair dentition. Neck: Supple without JVD. Back: Kyphotic without CVA tenderness. Lungs: Fair aeration with scattered coarse crackles upon inspiration without focalizing. No rhonchi. No expiratory wheeze. Bronchovesicular breath sounds. Chest: Well-healed sternal scar. Heart: Normal rate with irregular rhythm. Quiet systolic murmur left lower border. No gallops or rubs. Abdomen: Obese contour, soft and nontender to palpation with no palpable hepatosplenomegaly. Bowel sounds positive in all quadrants. Genitalia/rectal: Exam deferred. Extremities: Left BKA with clean stump, 2+ edema right ankle and foot with no cyanosis or clubbing. Fair capillary refill. Skin: Slightly pale, warm and dry. Neuro:, No focalizing motor deficits for tremor. Psych: Normal affect and mood. No abnormal thought processes, remote and recent memory intact. Results Imaging Imaging Studies: Exam: XR Chest Exam date and time: 06/24/2024 9:13 PM Age: 69 years old Clinical indication: Shortness of breath TECHNIQUE: Imaging protocol: Radiologic exam of the chest. Views: 1 view. COMPARISON: CR XR CHEST 2V PA LATERAL 04/07/2024 11:56 AM FINDINGS: Tubes, catheters and devices: Aortic valvular prosthesis in the expected position. Lungs: New patchy multifocal airspace disease most pronounced in the left lung base and right midlung zone. Low lung volumes. Pleural spaces: No definite pleural effusion. No pneumothorax. Heart/Mediastinum: CABG. Probable mild cardiomegaly would be stable. Bones/joints: Median sternotomy wires. No displaced fracture. IMPRESSION: New patchy multifocal airspace disease most pronounced in the left lung base and right midlung zone; concerning for multilobar pneumonia or asymmetric alveolar edema. Multiple chronic findings as above. Labs 06/25/24 05:40 06/25/24 05:40 Labs: Laboratory Results - last 24 hr 06/24/24 06/24/24 06/24/24 20:45 21:07 21:12 WBC 10.23 RBC 3.28 L Hgb 9.6 L Hct 30.0 L MCV 92 MCH 29.3 MCHC 32.0 RDW 13.4 Plt Count 163 MPV 11.5 H Immature Gran % 1.9 Neutrophils % 81.1 Lymphocytes % 8.6 Monocytes % 7.8 Eosinophils % 0.3 Basophils % 0.3 Nucleated RBC % 0.0 Absolute Neutrophils 8.30 H Absolute Lymphocytes 0.88 L Absolute Monocytes 0.80 Absolute Eosinophils 0.03 Absolute Basophils 0.03 PT 10.5 INR 1.0 VBG pH 7.31 VBG pCO2 38 L VBG pO2 81 VBG HCO3 19 L VBG Total CO2 18 L VBG O2 Saturation 96 VBG Base Excess -7 L Sodium 139 Potassium 5.2 H Chloride 106 Carbon Dioxide 19.7 L Anion Gap 13.3 H BUN 97 H* Creatinine 6.7 H* Est GFR (CKD-EPI 2020) 8.21 Glucose 192 H Calcium 8.5 Magnesium 2.6 H Total Bilirubin 0.38 AST 20 ALT 27 Alkaline Phosphatase 95 Troponin I 78 H* NT-Pro-B Natriuret Pep 6351 H Total Protein 7.4 Albumin 3.2 L Urine Color Urine Clarity Urine pH Ur Specific [place] Urine Protein Urine Ketones Urine Blood Urine Nitrite Urine Bilirubin Urine Urobilinogen Ur Leukocyte Esterase Urine RBC Urine WBC Ur Epithelial Cells Urine Crystals Urine Bacteria Urine Casts Urine Mucus Ur Culture Indicated? Urine Glucose COVID-19 Source Nasopharynx SARS-CoV-2 (PCR) Negative Influenza Type A (PCR) Negative Influenza Type B (PCR) Negative RSV (PCR) Negative 06/24/24 06/24/24 21:56 23:15 WBC RBC Hgb Hct MCV MCH MCHC RDW Plt Count MPV Immature Gran % Neutrophils % Lymphocytes % Monocytes % Eosinophils % Basophils % Nucleated RBC % Absolute Neutrophils Absolute Lymphocytes Absolute Monocytes Absolute Eosinophils Absolute Basophils PT INR VBG pH VBG pCO2 VBG pO2 VBG HCO3 VBG Total CO2 VBG O2 Saturation VBG Base Excess Sodium Potassium Chloride Carbon Dioxide Anion Gap BUN Creatinine Est GFR (CKD-EPI 2020) Glucose Calcium Magnesium Total Bilirubin AST ALT Alkaline Phosphatase Troponin I 932 H* NT-Pro-B Natriuret Pep Total Protein Albumin Urine Color Yellow Urine Clarity Clear Urine pH 5.5 Ur Specific [place] 1.020 Urine Protein >=300 H Urine Ketones Negative Urine Blood Small H Urine Nitrite Negative Urine Bilirubin Negative Urine Urobilinogen 0.2 Ur Leukocyte Esterase Negative Urine RBC 0-2 Urine WBC Negative Ur Epithelial Cells Rare Urine Crystals Negative Urine Bacteria Negative Urine Casts 0-2 Fine Granular Urine Mucus Trace Ur Culture Indicated? No Urine Glucose 100 H COVID-19 Source SARS-CoV-2 (PCR) Influenza Type A (PCR) Influenza Type B (PCR) RSV (PCR) Last Vital Signs Temp 37.2 C 06/24/24 20:33 Pulse 74 06/24/24 23:17 Resp 26 H 06/24/24 23:17 BP 161/114 H 06/24/24 23:17 Pulse Ox 97 06/24/24 23:17 Time Spent Time spent with Patient: >75 minutes Time was spent: preparing to see the patient(eg.review tests), obtaining and/or reviewing separately otained hiistory, ordering medications,tests, procedures, referring, communicating with other health healthcare financial analyst, indepentently interpreting results, counseling the patient and care coordination
[2024-06-25 00:32] LABS: Troponin I 4026 ng/L (<or=76)
--- NOTE | 2024-06-25 04:48 | W.PCEDHO ---
Registration Status: Primary Language: Preferred Language: ED Information & Data Chief Complaint RespSymp 06/24/24 21:02 Triage Note Fatigue, shortness of breath 06/24/24 20:33 , Generalized wheezing and deminished lower lobes. PT reports fatigue yesterday. Denies history of COPD. Hx of CHF. Medical / Surgical History (Last Updated 06/25/24 @ 00:37 by [place]) CKD (chronic kidney disease) stage 4, GFR 15-29 ml/min Stage 4 chronic kidney disease due to diabetes mellitus Chronic kidney disease History of osteomyelitis CAD (coronary artery disease) Arteriosclerotic cardiovascular disease (ASCVD) Aortic stenosis Hyperlipidemia Cellulitis PVD (peripheral vascular disease) Delayed surgical wound healing of [id number] amputation stump HUY (acute kidney injury) Decubitus ulcer of sacral region, stage 1 Amputated great toe of right foot Colon polyps Cardiac murmur Type 2 diabetes mellitus (Last Reviewed 06/25/24 @ 00:31 by [place]) History of colonoscopy with polypectomy (~02/21/23) S/P aortic valve replacement with bioprosthetic valve S/P CABG (coronary artery bypass graft) History of left below knee amputation Most Recent Vital Signs Temperature 37.2 C 06/24/24 20:33 Temperature Source Oral 06/24/24 20:33 Pulse 69 06/25/24 03:16 Pulse 82 06/25/24 03:10 Respiratory Rate 10 L 06/25/24 03:10 Respiratory Effort Short of Breath, Labored, Accessory Muscle Use 06/24/24 20:51 Respiratory Depth Normal 06/24/24 20:50 Blood Pressure 182/78 H 06/25/24 03:16 Blood Pressure Mean 118 06/25/24 03:16 Blood Pressure Position Sitting 06/24/24 20:33 Pulse Oximetry 98 06/25/24 03:20 Respiratory End-tidal CO2 30 06/25/24 03:01 Oxygen Delivery Method Nasal Cannula 06/24/24 21:26 Oxygen Flow Rate 2 06/24/24 21:26 Pain Level 0 06/24/24 20:33 Allergies No Known Allergies Allergy (Verified 06/24/24 20:40) IV IV Catheter Gauge [Right Wrist 18 ] Diagnostics 06/25/24 06/24/24 06/24/24 Range/Units 00:07 23:15 21:56 WBC (4.4-10.8) 10^3/uL RBC (4.36-5.78) 10^6/uL Hgb (13.5-17.5) g/dL Hct (40.0-50.0) % MCV (80-95) fL MCH (27.0-33.0) pg MCHC (32.0-36.0) % RDW (11.8-14.1) % Plt Count (130-400) 10^3/uL MPV (8.0-11.0) fL Immature Gran % % Neutrophils % % Lymphocytes % % Monocytes % % Eosinophils % % Basophils % % Nucleated RBC % (0.0-0.3) % Absolute Neutrophils (1.2-6.7) 10^3/uL Absolute Lymphocytes (1.2-3.4) 10^3/uL Absolute Monocytes (0.1-0.8) 10^3/uL Absolute Eosinophils (0.0-0.7) 10^3/uL Absolute Basophils (0.0-0.2) 10^3/uL PT (9.1-11.1) sec INR (0.9-1.1) VBG pH (7.31-7.41) VBG pCO2 (41-51) mmHg VBG pO2 mmHg VBG HCO3 (23-28) mmol/L VBG Total CO2 (24-29) mmol/L VBG O2 Saturation % VBG Base Excess (-2-3) mmol/L Sodium (136-145) mmol/L Potassium (3.5-5.1) mmol/L Chloride (98-107) mmol/L Carbon Dioxide (21.0-32.0) mmol/L Anion Gap (3-11) mmol/L BUN (7-18) mg/dL Creatinine (0.70-1.30) mg/dL Est GFR (CKD-EPI 2020) (mL/min/1.73m2) Glucose (74-106) mg/dL Calcium (8.5-10.1) mg/dL Magnesium (1.8-2.4) mg/dL Total Bilirubin (0.2-1.0) mg/dL AST (15-37) U/L ALT (16-63) U/L Alkaline Phosphatase (46-116) U/L Troponin I 4026 H* 932 H* (<or=76) ng/L NT-Pro-B Natriuret Pep (<300) pg/mL Total Protein (6.4-8.2) g/dL Albumin (3.4-5.0) g/dL Urine Color Yellow (Yellow) Urine Clarity Clear (Clear) Urine pH 5.5 (5-8) Ur Specific [place] 1.020 (1.005-1.025) Urine Protein >=300 H (Neg-Trace) mg/dL Urine Ketones Negative (Negative) mg/dL Urine Blood Small H (Negative) Urine Nitrite Negative (Negative) Urine Bilirubin Negative (Negative) Urine Urobilinogen 0.2 (Up to 0.2) mg/dL Ur Leukocyte Esterase Negative (Negative) Urine RBC 0-2 (0-2) HPF Urine WBC Negative (0-5) HPF Ur Epithelial Cells Rare (Negative) HPF Urine Crystals Negative (Negative) HPF Urine Bacteria Negative (Negative) HPF Urine Casts 0-2 Fine Granular (Negative) LPF Urine Mucus Trace (Negative) Ur Culture Indicated? No Urine Glucose 100 H (Negative) mg/dL COVID-19 Source SARS-CoV-2 (PCR) (Negative) Influenza Type A (PCR) (Negative) Influenza Type B (PCR) (Negative) RSV (PCR) (Negative) 06/24/24 06/24/24 06/24/24 Range/Units 21:12 21:07 20:45 WBC 10.23 (4.4-10.8) 10^3/uL RBC 3.28 L (4.36-5.78) 10^6/uL Hgb 9.6 L (13.5-17.5) g/dL Hct 30.0 L (40.0-50.0) % MCV 92 (80-95) fL MCH 29.3 (27.0-33.0) pg MCHC 32.0 (32.0-36.0) % RDW 13.4 (11.8-14.1) % Plt Count 163 (130-400) 10^3/uL MPV 11.5 H (8.0-11.0) fL Immature Gran % 1.9 % Neutrophils % 81.1 % Lymphocytes % 8.6 % Monocytes % 7.8 % Eosinophils % 0.3 % Basophils % 0.3 % Nucleated RBC % 0.0 (0.0-0.3) % Absolute Neutrophils 8.30 H (1.2-6.7) 10^3/uL Absolute Lymphocytes 0.88 L (1.2-3.4) 10^3/uL Absolute Monocytes 0.80 (0.1-0.8) 10^3/uL Absolute Eosinophils 0.03 (0.0-0.7) 10^3/uL Absolute Basophils 0.03 (0.0-0.2) 10^3/uL PT 10.5 (9.1-11.1) sec INR 1.0 (0.9-1.1) VBG pH 7.31 (7.31-7.41) VBG pCO2 38 L (41-51) mmHg VBG pO2 81 mmHg VBG HCO3 19 L (23-28) mmol/L VBG Total CO2 18 L (24-29) mmol/L VBG O2 Saturation 96 % VBG Base Excess -7 L (-2-3) mmol/L Sodium 139 (136-145) mmol/L Potassium 5.2 H (3.5-5.1) mmol/L Chloride 106 (98-107) mmol/L Carbon Dioxide 19.7 L (21.0-32.0) mmol/L Anion Gap 13.3 H (3-11) mmol/L BUN 97 H* (7-18) mg/dL Creatinine 6.7 H* (0.70-1.30) mg/dL Est GFR (CKD-EPI 2020) 8.21 (mL/min/1.73m2) Glucose 192 H (74-106) mg/dL Calcium 8.5 (8.5-10.1) mg/dL Magnesium 2.6 H (1.8-2.4) mg/dL Total Bilirubin 0.38 (0.2-1.0) mg/dL AST 20 (15-37) U/L ALT 27 (16-63) U/L Alkaline Phosphatase 95 (46-116) U/L Troponin I 78 H* (<or=76) ng/L NT-Pro-B Natriuret Pep 6351 H (<300) pg/mL Total Protein 7.4 (6.4-8.2) g/dL Albumin 3.2 L (3.4-5.0) g/dL Urine Color (Yellow) Urine Clarity (Clear) Urine pH (5-8) Ur Specific [place] (1.005-1.025) Urine Protein (Neg-Trace) mg/dL Urine Ketones (Negative) mg/dL Urine Blood (Negative) Urine Nitrite (Negative) Urine Bilirubin (Negative) Urine Urobilinogen (Up to 0.2) mg/dL Ur Leukocyte Esterase (Negative) Urine RBC (0-2) HPF Urine WBC (0-5) HPF Ur Epithelial Cells (Negative) HPF Urine Crystals (Negative) HPF Urine Bacteria (Negative) HPF Urine Casts (Negative) LPF Urine Mucus (Negative) Ur Culture Indicated? Urine Glucose (Negative) mg/dL COVID-19 Source Nasopharynx SARS-CoV-2 (PCR) Negative (Negative) Influenza Type A (PCR) Negative (Negative) Influenza Type B (PCR) Negative (Negative) RSV (PCR) Negative (Negative) Intake and Output - 24 Hour Total 06/24/24 20:28 thru 06/25/24 04:42 Output Total 1420 Balance -1420 Weight 105 kg Output: Urine 1420 Falls Risk Assessment History of Falls No History 06/24/24 20:50 Contributing Factors No Factors 06/24/24 20:50 Ambulatory Aids Independent 06/24/24 20:50 Tubes/Lines None 06/24/24 20:50 Gait Evaluation No gait disturbance 06/24/24 20:50 Cognition No cognitive impairment 06/24/24 20:50 Fall Total Score 0 06/24/24 20:50 Level of Risk Standard/Low Risk 06/24/24 20:50 Problems (Last Updated 06/25/24 @ 00:37 by [place]) Diabetes mellitus with stage V chronic kidney disease (Chronic) Acute hypoxemic respiratory failure (Acute) Elevated troponin (Acute) Pulmonary edema (Acute) Breath shortness (Acute) Acute on chronic kidney failure (Acute) Anemia (Chronic) Hypertension (Chronic) v v v v v v v v v Sending and/or Receiving Nurses: Please use comment section below to note any information pertinent to the patient hand-off not included above. Information / Comments: Report received from: Stuart PERSON at 0400
[2024-06-25] MEDS: Heparin 5,000 UNITS/ML VIAL 5000 UNITS SC (06:48)
[2024-06-25 06:58] LABS: HCT 29.1 % (40.0-50.0); HGB 9.5 g/dL (13.5-17.5); MCH 29.1 pg (27.0-33.0); MCHC 32.6 % (32.0-36.0); MCV 89 fL (80-95); MPV 11.3 fL (8.0-11.0); Platelet Count 158 10^3/uL (130-400); RBC 3.27 10^6/uL (4.36-5.78); RDW 13.6 % (11.8-14.1); RDW-SD 44.5 fL; WBC 8.84 10^3/uL (4.4-10.8)
[2024-06-25 07:16] LABS: ALT 25 U/L (16-63); AST 37 U/L (15-37); Albumin 3.1 g/dL (3.4-5.0); Alkaline Phosphatase 85 U/L (46-116); Anion Gap 11.8 mmol/L (3-11); Bilirubin, Total 0.51 mg/dL (0.2-1.0); CO2 22.2 mmol/L (21.0-32.0); Calcium 8.7 mg/dL (8.5-10.1); Chloride 107 mmol/L (98-107); Estimated GFR 8.21 (mL/min/1.73m2); Glucose 133 mg/dL (74-106); Magnesium 2.7 mg/dL (1.8-2.4); Potassium 4.7 mmol/L (3.5-5.1); Sodium 141 mmol/L (136-145); Total Protein 7.3 g/dL (6.4-8.2)
[2024-06-25 07:40] LABS: TSH (W/Ref FT4) 2.02 uIU/mL (0.36-3.74)
[2024-06-25 07:42] LABS: Troponin I 3959 ng/L (<or=76)
[2024-06-25] MEDS: Insulin Aspart 300 UNITS/3 ML PEN SC ×3 (08:29→18:00)
[2024-06-25] MEDS: Pregabalin 100 MG CAP PO ×2 (08:30→19:43)
[2024-06-25] MEDS: Sodium Bicarbonate 650 MG TAB PO ×2 (08:31→19:43)
[2024-06-25] MEDS: amLODIPine 10 MG TAB PO (08:31)
[2024-06-25] MEDS: Aspirin E.C. 81 MG TABEC PO (08:31)
[2024-06-25] MEDS: Furosemide 100 MG/10 ML VIAL 80 MG IVP (08:32)
[2024-06-25] MEDS: Atorvastatin 40 MG TAB 80 MG PO (08:32)
[2024-06-25] MEDS: Clopidogrel 75 MG TAB PO (08:32)
[2024-06-25] MEDS: Metoprolol 50 MG TAB PO ×2 (08:32→19:44)
[2024-06-25] MEDS: Normal Saline Flush 10 ML SYR IVP ×2 (08:33→19:44)
[2024-06-25] MEDS: Prazosin 1 MG CAP 2 MG PO ×2 (08:46→19:44)
--- NOTE | 2024-06-25 08:49 | INITIAL_ITS ---
Date of service: 06/25/24 Time of Service: 08:49 Care Management Initial Assmt Initial Assessment Reason for Hospitalization: Pulmonary edema Functional Status/Living Situation Patient Presentation: Xavier was sitting up in bed visiting with his Jaki when CM met with him. He was pleasant in manner and engaged well with CM. Christo live in a single family home in [place]. They have 2 daughters; one daughter lives in [place] and the other is in [place], [place]. Xavier is fairly independent with ADLs and what help he does need is provided by his . Xavier is retired from a career in [employer]. He has a cane and a walker which he uses for ambulatory assistance. He also shared that his home is handicapped accessible. Xavier had a left BK amputation a couple of years ago and wears a prosthesis. Jaki shared that she will not be in tomorrow as their son-in-law's is scheduled for tomorrow. He reecently and the family is still trying to cope with the loss. Town of Residence: [place] Resides with: Spouse ( Jaki) Significant Other/Family: Out of area (one daughter in [place] as well as 2 grandchildren) Natural Supports: family Employment Status: Retired Instrumental Activities of Daily Living (ADLs): Independent Medications Medication Management: No Issues/Barriers identified Physical Functioning/Mobility Assistive Device: cane and walker Advance Directives Advance Directives: Do you have an Advance Directive: N 10/17/16 11:28 AD On File at [facility]: N 10/17/16 11:28 Date Asked 06/25/24 06/25/24 09:03 AD Date Reviewed COLST On File at [facility] No 06/24/24 20:29 COLST Date Scanned Code Status Resuscitation Status Full Code Insurance Coverage/Financial Issues Insurance: Medicare /[facility] Care Team Visit Care Team Role Provider Type Belle Garcia Primary Care Provider NON-[facility] STAFF PHYSICIAN Santiago Baig MD Emergency Provider [facility] STAFF PHYSICIAN Rio Downs Admit Provider NON-[facility] STAFF PHYSICIAN Attending Provider Discharge Potential Discharge Needs: Other (transfer to [facility]) Anticipated Barriers to Discharge: Bed availability Patient/Family Education Needs: Review discharge instructions, discuss Ask Me Three and Other (expectations, limitations) Transportation: EMS Plan: Xavier is waiting for transfer to [facility]. He has end stage kidney disease and may need dialysis. In addition his troponins are elevated, the last one being >9000. He will transport via EMS coordinated by the nursing concrete pouring supervisor. CM will follow and continue to assess for discharge needs. PFSH All Active Problems Diabetes mellitus with stage V chronic kidney disease (Chronic) Acute hypoxemic respiratory failure (Acute) Elevated troponin (Acute) Pulmonary edema (Acute) Breath shortness (Acute) Acute on chronic kidney failure (Acute) Acute kidney injury superimposed on CKD (Acute) Anemia (Chronic) Diabetes (Chronic) Open wound of right great toe (Acute) Ulcer of right foot with fat layer exposed (Acute) Bacteremia (Acute) Nausea & vomiting (Acute) Tubular adenoma (Acute ~02/21/23) Screen for colon cancer (Acute) Cough (Acute) Kidney transplant candidate (Acute) Critical lower limb ischemia (Acute) Urinary retention (Acute) Hypertension (Chronic) Family history of colon cancer in father (Acute) Medical History CKD (chronic kidney disease) stage 4, GFR 15-29 ml/min Stage 4 chronic kidney disease due to diabetes mellitus Chronic kidney disease History of osteomyelitis CAD (coronary artery disease) Arteriosclerotic cardiovascular disease (ASCVD) Aortic stenosis Status post aortic valve replacement in 2020?bioprosthetic Hyperlipidemia Cellulitis PVD (peripheral vascular disease) Delayed surgical wound healing of [id number]-[id number] amputation stump HUY (acute kidney injury) Decubitus ulcer of sacral region, stage 1 Amputated great toe of right foot Colon polyps Cardiac murmur Type 2 diabetes mellitus Surgical History History of colonoscopy with polypectomy (~02/21/23) S/P aortic valve replacement with bioprosthetic valve 2020 S/P CABG (coronary artery bypass graft) x4 2020 History of left below knee amputation Social History Smoking/Tobacco Use Status: Never Smoking risk assessment performed?: Yes Alcohol Intake: former Drug use: Never Substance use type: does not use Housing: house Do you feel safe at home: Yes Do you feel safe in your relationship?: Yes Additional Social history: at side, very supportive. SDOH(Care Management) Screening Will the Patient Participate in the Screening?: Declined to provide Do you worry about having a steady place to live?: no Problems where you live: no known problems In the past 12 months, have you had to go without electric, gas, oil or water in your home?: no Have you or anyone in your house had to go without enough food to eat?: no Has lack of transportation kept you from medical appointments or from doing things needed for daily living?: no Has anyone in your support network made you feel unsafe for any reason?: no
[2024-06-25] MEDS: Pantoprazole 40 MG VIAL IVP (08:57)
[2024-06-25 09:43] LABS: Troponin I 9298 ng/L (<or=76)
--- NOTE | 2024-06-25 10:00 | RT.EKG_ITS ---
APPROVED REPORT Exam: Resting ECG Reason for Exam: elevated troponins Patient Location: I HR:63 bpm ECG Measurements Heart Rate 63 AXIS MO [id number] P [id number] QRSd 137 QRS -8 QT 432 T 54 QTc 443 Conclusion Atrial fibrillation...? atrial activity Right bundle branch block...QRSd>120, terminal axis(90,270)
[2024-06-25 14:05] LABS: BUN 98 mg/dL (7-18)
[2024-06-25 14:06] LABS: CREATININE 6.7 mg/dL (0.70-1.30)
[2024-06-25 14:11] LABS: Troponin I 8885 ng/L (<or=76)
--- NOTE | 2024-06-25 14:14 | PHA.REVIEW2 ---
Pharmacy Admission Review Admission Clinical Review Admission Pharmacy Review: Acute hypoxemic respiratory failure (Acute) Elevated troponin (Acute) Pulmonary edema (Acute) Breath shortness (Acute) Acute on chronic kidney failure (Acute) No Known Allergies Allergy (Verified 06/24/24 20:40) Resuscitation Status Full Code Height 6 ft Weight 98 kg Comments Comments/Follow Ups: Per morning meeting, trying to transfer patient to [facility] [place] Pharmacy Admission Review Renal Dosing Renal Dosing: BUN 98 mg/dL (7-18) H* 06/25/24 05:40 Creatinine 6.7 mg/dL (0.70-1.30) H* 06/25/24 05:40 Medications needing adjustments: Reviewed (CrCl 12.2 mL/min, BUN increased from 97) List of meds needing interventions: Current medications are okay Anticoagulation Anticoagulation: Hgb 9.5 g/dL (13.5-17.5) L 06/25/24 05:40 Hct 29.1 % (40.0-50.0) L 06/25/24 05:40 Plt Count 158 10^3/uL (130-400) 06/25/24 05:40 INR 1.0 (0.9-1.1) 06/24/24 21:12 Creatinine 6.7 mg/dL (0.70-1.30) H* 06/25/24 05:40 Therapeutic Anticoagulation: Reviewed (Hgb decreased from 9.6) Medications: Heparin Relevant Labs Relevant Labs: Sodium 141 mmol/L (136-145) 06/25/24 05:40 Potassium 4.7 mmol/L (3.5-5.1) 06/25/24 05:40 Chloride 107 mmol/L (98-107) 06/25/24 05:40 Magnesium 2.7 mg/dL (1.8-2.4) H 06/25/24 05:40 Electrolytes, C-Reactive P, ESR: Reviewed (Mg increased from 2.6) DM Control DM Control: Glucose 133 mg/dL (74-106) H 06/25/24 05:40 Finger Stick Blood Glucose 220 1155 Finger Stick Blood Glucose 220 1155 Finger Stick Blood Glucose 220 1155 Finger Stick Blood Glucose 146 0829 Finger Stick Blood Glucose 146 0828 Finger Stick Blood Glucose 146 0828 DM Control: Reviewed Insulin Dosing, Diabetic Medication: Has order for SS insulin Cardiac Review Cardiac Review: Troponin I 8885 ng/L (<or=76) H* 9298 ng/L (<or=76) H* 3959 ng/L (<or=76) H* 4026 ng/L (<or=76) H* 932 ng/L (<or=76) H* 78 ng/L (<or=76) H* 06/25/24 13:42 06/25/24 09:12 06/25/24 05:40 06/25/24 00:07 06/24/24 21:59 06/24/24 20:45 NT-Pro-B Natriuret Pep 6351 pg/mL (<300) H 06/24/24 20:45 Blood Pressure : Heart Rate 111/70 : 75 0931 Blood Pressure : Heart Rate 124/81 : 65 0917 Blood Pressure : Heart Rate 164/89 : 79 0902 Blood Pressure : Heart Rate 184/76 : 79 0846 Blood Pressure : Heart Rate 149/74 : 88 0831 Blood Pressure : Heart Rate 151/85 : 101 0817 Blood Pressure : Heart Rate 151/140 : 92 0801 Blood Pressure : Heart Rate 140/86 : 76 0746 Blood Pressure : Heart Rate 139/78 : 82 0732 BP, HR, EF%: Reviewed (BP and HR WNL) List meds needing interventions: Has order for 10mg amlodipine daily QTc Review QTc: Reviewed (455 from 06/24/24) IV to PO Switch IV Medications: Reviewed (furosemide, pantoprazole and ondansetron) Home Meds Home Med List reviewed: Reviewed Relevent Home Meds Not ordered & why?: Lantus (has order for SS insulin) and Victoza (has order for SS insulin) Current Meds Current Medication Order Review: Intervened Comments: Changed atorvastatin order from 20mg tablets to 40mg tablets to make administration easier Comments Comments/Follow Ups: Per morning meeting, trying to transfer patient to [facility] for dialysis
[2024-06-25 14:21] LABS: PTT Activated 28.4 sec (23.6-32.8)
--- NOTE | 2024-06-25 14:35 | W.PM.DS.N ---
Date of service: 06/25/24 Time of Service: 09:30 DS: Diagnosis Discharge Diagnosis (1) Acute hypoxemic respiratory failure: Status: Acute Asessment and Plan: Improved with aggressive diuresis (2) Elevated troponin: Status: Acute Asessment and Plan: Troponin continues to rise. Last measure 9000 Patient is being transferred to [facility] for cardiac evaluation. Continue heparin drip for ACS protocol (3) Pulmonary edema: Status: Acute Asessment and Plan: Improved with oxygen needs down to 2 L/min nasal cannula satting well. Patient has had greater than 2.4 L output with aggressive furosemide diuresis (4) Arteriosclerotic cardiovascular disease (ASCVD): Asessment and Plan: For cardiology evaluation at [facility] Elevated troponins may be demand related Continue atorvastatin (5) Hypertension: Status: Chronic Asessment and Plan: Stable at this time (6) Diabetes mellitus with stage V chronic kidney disease: Status: Chronic Asessment and Plan: Stable at this time continue medications (7) Aortic stenosis: Asessment and Plan: Stable at this time (8) Anemia: Status: Chronic Asessment and Plan: Stable at this time (9) PVD (peripheral vascular disease): Asessment and Plan: Status post left below the knee amputation Small diabetic foot related wounds on the right foot and toes (10) Hyperlipidemia: Discharge Plan Disposition Patient Disposition: Transfer-Acute Inpatient Care Specific Acute Inpt Facility: [facility] Condition: Critical Discharge Details Reason For Visit: Acute hypoxic respiratory failure, CHF Admit Date/Time: 06/25/24 00:54 Admit Provider: Rio Downs Attending Provider: Rio Downs Primary Care Provider: Belle Garcia Hospital Course Hospital Course: Patient admitted to N/V with acute congestive heart failure. Patient with a history of CKD stage V with increased creatinine 5.8 and prerenal azotemia BUN 98. He responded well to 240 mg of Lasix in divided dosing with more than 2.2 L out since admission. His respiratory status improved significantly and he was able to wean down to 2 L nasal cannula. Serial troponins were followed. Initial troponin was minimally elevated, nabil to 4000, dropped to 3950 and then sequential troponin was noted at 9000/9298/8885. Case was discussed last evening, at the time of admission, with cardiology at [facility]. Case is again discussed today with cardiology after troponin returned back at 9000. Discussed with [facility] cardiology service, Raya Ramirez PA-C. Details of the case are discussed and patient is accepted to service of Dr Cool. Patient will be transferred when bed is available. Discussed with patient if he needs cardiac cath, he would likely be committed at that time to dialysis. IV heparin drip started for ACS protocol per direction of [facility] for transfer. Case discussed with home housekeeper as well as the patient's primary ICU nurse. Home Meds and New Rx's Prescriptions: New furosemide 10 mg/mL Solution 80 mg IVP BID@0800,1600 Qty: 40 0RF heparin(porcine) in 0.45% NaCl 25,000 unit/250 mL Parenteral Solution 25,000 unit IV INFUSION Qty: 250 0RF Continued Levemir FlexPen 100 unit/mL (3 mL) insulin pen 40 unit subcut QHS Patient Comments: none today r/t hypoglycemia Novolin R FlexPen 100 unit/mL (3 mL) insulin pen 1 sliding scale dose subcut USEASDIRECTD Patient Comments: none today r/t hypoglycemia clopidogrel 75 mg tablet 75 mg PO DAILY prazosin 2 mg capsule 2 mg PO BID aspirin 81 MG tablet,delayed release (DR/EC) 81 mg PO DAILY pregabalin [Lyrica] 100 mg Capsule 100 mg PO BID sodium bicarbonate 650 mg tablet 650 mg PO BID Patient Comments: TAKE 1 TABLET BY MOUTH TWICE A DAY zolpidem 5 mg tablet 5 mg PO QHS PRN Patient Comments: TAKE 1 TABLET BY MOUTH EVERY DAY AT BEDTIME NEEDED atorvastatin 20 mg tablet 20 mg PO DAILY Patient Comments: TAKE 1 TABLET BY MOUTH EVERY DAY furosemide 40 mg tablet 40 mg PO BID Patient Comments: TAKE 1 TABLET BY MOUTH TWICE A DAY amlodipine 10 mg tablet 10 mg PO DAILY Patient Comments: TAKE 1 TABLET BY MOUTH EVERY DAY insulin glargine [Lantus Solostar U-100 Insulin] 100 unit/mL (3 mL) insulin pen 30 unit SUBCUT QAM Patient Comments: INJECT 30-60 UNIT SUBCUTANEOUSLY 2 TIMES A DAY 26 units QHS acetaminophen 500 mg Tablet 1,000 mg PO Q6H PRN liraglutide [Victoza 2-Jimmy] 0.6 mg/0.1 mL (18 mg/3 mL) Pen Injector 1.8 mg SUBCUT Q24H metoprolol tartrate 50 mg tablet 50 mg PO BID Patient Comments: TAKE 1 TABLET BY MOUTH TWICE A DAY Discharge Instructions Activity:: bedrest Equipment/Supplies:: No Equipment Needed Diet:: npo at this time Discharge Orders Discharge Orders: Discharge Order (Routine); Ordered 06/25/24 Ordered By: Mak Chávez DS: Summary Time Spent with Patient providing and/or coordinating discharge services: Greater than 30 minutes Status at Discharge Functional status at discharge: bed bound Overall status at discharge: patient is not back to baseline Mental Status: mental status grossly normal Speech and Movement: speech and movement normal Mood: congruent mood Affect: normal affect Quality:SDOH Health Related Social Needs: No Data to Display Exam Narrative Exam Narrative: General: Patient appears older than stated age, alert and oriented x 3 and in no acute distress. He does appear chronically ill. He is moderately obese. HEENT: Normocephalic, eyes with pupils equal and react to light symmetrically, extraocular move intact and sclera anicteric. Oropharynx with slightly dry mucosa and fair dentition. Neck: Supple without JVD. Back: Kyphotic without CVA tenderness. Lungs: Fair aeration with scattered coarse crackles upon inspiration without focalizing. No rhonchi. No expiratory wheeze. Bronchovesicular breath sounds. Chest: Well-healed sternal scar. Heart: Normal rate with irregular rhythm. Quiet systolic murmur left lower border. No gallops or rubs. Abdomen: Obese contour, soft and nontender to palpation with no palpable hepatosplenomegaly. Bowel sounds positive in all quadrants. Genitalia/rectal: Exam deferred. Extremities: Left BKA with clean stump, 2+ edema right ankle and foot with no cyanosis or clubbing. Fair capillary refill. Skin: Slightly pale, warm and dry. Neuro:, No focalizing motor deficits for tremor. Psych: Normal affect and mood. No abnormal thought processes, remote and recent memory intact. Psych Mental Status: mental status grossly normal Speech and Movement: speech and movement normal Mood: congruent mood Affect: normal affect DS: Data Vitals/I&O Vitals and I&O: Vital Signs Temperature 37.4 C 06/25/24 04:35 Temperature Source Temporal Artery Scan 06/25/24 04:35 Pulse 72 06/25/24 09:31 Pulse 66 06/25/24 09:31 Respiratory Rate 20 06/25/24 09:31 Respiratory Effort Normal, Short of Breath 06/25/24 04:35 Respiratory Depth Normal 06/25/24 04:35 Respiratory Pattern Tachypnea 06/25/24 04:35 Blood Pressure 111/70 06/25/24 09:31 Blood Pressure Mean 84 06/25/24 09:31 Blood Pressure Position Sitting 06/24/24 20:33 Pulse Oximetry 96 06/25/24 09:31 Respiratory End-tidal CO2 30 06/25/24 03:01 Oxygen Delivery Method Nasal Cannula 06/25/24 04:55 Oxygen Flow Rate 2 06/25/24 04:55 Pain Level 0 06/25/24 04:35 Intake & Output 06/24/24 06/25/24 06/25/24 23:59 11:59 23:59 Intake Total 480 / 480 Output Total 800 / 800 1470 / 1470 Balance -800 / -800 -990 / -990 Weight 105 kg 98 kg Intake: Oral 480 / 480 Output: Urine 800 / 800 1470 / 1470 Other: Urine Color Pale Urine Appearance Clear Voiding Methods Urinal Data Completed and Pending Labs on day of discharge: Labs from last 24 hours 06/25/24 06/25/24 06/25/24 13:42 09:12 05:40 WBC 8.84 RBC 3.27 L Hgb 9.5 L Hct 29.1 L MCV 89 MCH 29.1 MCHC 32.6 RDW 13.6 Plt Count 158 MPV 11.3 H Immature Gran % Neutrophils % Lymphocytes % Monocytes % Eosinophils % Basophils % Nucleated RBC % Absolute Neutrophils Absolute Lymphocytes Absolute Monocytes Absolute Eosinophils Absolute Basophils PT INR APTT 28.4 VBG pH VBG pCO2 VBG pO2 VBG HCO3 VBG Total CO2 VBG O2 Saturation VBG Base Excess Sodium 141 Potassium 4.7 Chloride 107 Carbon Dioxide 22.2 Anion Gap 11.8 H BUN 98 H* Creatinine 6.7 H* Est GFR (CKD-EPI 2020) 8.21 Glucose 133 H Calcium 8.7 Magnesium 2.7 H Total Bilirubin 0.51 AST 37 ALT 25 Alkaline Phosphatase 85 Troponin I 8885 H* 9298 H* 3959 H* NT-Pro-B Natriuret Pep Total Protein 7.3 Albumin 3.1 L TSH 2.02 Urine Color Urine Clarity Urine pH Ur Specific Mcfarlan Urine Protein Urine Ketones Urine Blood Urine Nitrite Urine Bilirubin Urine Urobilinogen Ur Leukocyte Esterase Urine RBC Urine WBC Ur Epithelial Cells Urine Crystals Urine Bacteria Urine Casts Urine Mucus Ur Culture Indicated? Urine Glucose COVID-19 Source SARS-CoV-2 (PCR) Influenza Type A (PCR) Influenza Type B (PCR) RSV (PCR) 06/25/24 06/24/24 06/24/24 00:07 23:15 21:56 WBC RBC Hgb Hct MCV MCH MCHC RDW Plt Count MPV Immature Gran % Neutrophils % Lymphocytes % Monocytes % Eosinophils % Basophils % Nucleated RBC % Absolute Neutrophils Absolute Lymphocytes Absolute Monocytes Absolute Eosinophils Absolute Basophils PT INR APTT VBG pH VBG pCO2 VBG pO2 VBG HCO3 VBG Total CO2 VBG O2 Saturation VBG Base Excess Sodium Potassium Chloride Carbon Dioxide Anion Gap BUN Creatinine Est GFR (CKD-EPI 2020) Glucose Calcium Magnesium Total Bilirubin AST ALT Alkaline Phosphatase Troponin I 4026 H* 932 H* NT-Pro-B Natriuret Pep Total Protein Albumin TSH Urine Color Yellow Urine Clarity Clear Urine pH 5.5 Ur Specific Mcfarlan 1.020 Urine Protein >=300 H Urine Ketones Negative Urine Blood Small H Urine Nitrite Negative Urine Bilirubin Negative Urine Urobilinogen 0.2 Ur Leukocyte Esterase Negative Urine RBC 0-2 Urine WBC Negative Ur Epithelial Cells Rare Urine Crystals Negative Urine Bacteria Negative Urine Casts 0-2 Fine Granular Urine Mucus Trace Ur Culture Indicated? No Urine Glucose 100 H COVID-19 Source SARS-CoV-2 (PCR) Influenza Type A (PCR) Influenza Type B (PCR) RSV (PCR) 06/24/24 06/24/24 06/24/24 21:12 21:07 20:45 WBC 10.23 RBC 3.28 L Hgb 9.6 L Hct 30.0 L MCV 92 MCH 29.3 MCHC 32.0 RDW 13.4 Plt Count 163 MPV 11.5 H Immature Gran % 1.9 Neutrophils % 81.1 Lymphocytes % 8.6 Monocytes % 7.8 Eosinophils % 0.3 Basophils % 0.3 Nucleated RBC % 0.0 Absolute Neutrophils 8.30 H Absolute Lymphocytes 0.88 L Absolute Monocytes 0.80 Absolute Eosinophils 0.03 Absolute Basophils 0.03 PT 10.5 INR 1.0 APTT VBG pH 7.31 VBG pCO2 38 L VBG pO2 81 VBG HCO3 19 L VBG Total CO2 18 L VBG O2 Saturation 96 VBG Base Excess -7 L Sodium 139 Potassium 5.2 H Chloride 106 Carbon Dioxide 19.7 L Anion Gap 13.3 H BUN 97 H* Creatinine 6.7 H* Est GFR (CKD-EPI 2020) 8.21 Glucose 192 H Calcium 8.5 Magnesium 2.6 H Total Bilirubin 0.38 AST 20 ALT 27 Alkaline Phosphatase 95 Troponin I 78 H* NT-Pro-B Natriuret Pep 6351 H Total Protein 7.4 Albumin 3.2 L TSH Urine Color Urine Clarity Urine pH Ur Specific Mcfarlan Urine Protein Urine Ketones Urine Blood Urine Nitrite Urine Bilirubin Urine Urobilinogen Ur Leukocyte Esterase Urine RBC Urine WBC Ur Epithelial Cells Urine Crystals Urine Bacteria Urine Casts Urine Mucus Ur Culture Indicated? Urine Glucose COVID-19 Source Nasopharynx SARS-CoV-2 (PCR) Negative Influenza Type A (PCR) Negative Influenza Type B (PCR) Negative RSV (PCR) Negative PFSH All Active Problems Diabetes mellitus with stage V chronic kidney disease (Chronic) Acute hypoxemic respiratory failure (Acute) Elevated troponin (Acute) Pulmonary edema (Acute) Breath shortness (Acute) Acute on chronic kidney failure (Acute) Acute kidney injury superimposed on CKD (Acute) Anemia (Chronic) Diabetes (Chronic) Open wound of right great toe (Acute) Ulcer of right foot with fat layer exposed (Acute) Bacteremia (Acute) Nausea & vomiting (Acute) Tubular adenoma (Acute ~02/21/23) Screen for colon cancer (Acute) Cough (Acute) Kidney transplant candidate (Acute) Critical lower limb ischemia (Acute) Urinary retention (Acute) Hypertension (Chronic) Family history of colon cancer in father (Acute) Medical History CKD (chronic kidney disease) stage 4, GFR 15-29 ml/min Stage 4 chronic kidney disease due to diabetes mellitus Chronic kidney disease History of osteomyelitis CAD (coronary artery disease) Arteriosclerotic cardiovascular disease (ASCVD) Aortic stenosis Status post aortic valve replacement in 2019?bioprosthetic Hyperlipidemia Cellulitis PVD (peripheral vascular disease) Delayed surgical wound healing of [id number] amputation stump HUY (acute kidney injury) Decubitus ulcer of sacral region, stage 1 Amputated great toe of right foot Colon polyps Cardiac murmur Type 2 diabetes mellitus Surgical History History of colonoscopy with polypectomy (~02/21/23) S/P aortic valve replacement with bioprosthetic valve 2020 S/P CABG (coronary artery bypass graft) x4 2020 History of left below knee amputation Social History Smoking/Tobacco Use Status: Never Smoking risk assessment performed?: Yes Alcohol Intake: former Drug use: Never Substance use type: does not use Housing: house Do you feel safe at home: Yes Do you feel safe in your relationship?: Yes Additional Social history: at side, very supportive. Time Spent with Patient Time Spent with Patient: 70-84 minutes4 Time was spent: preparing to see the patient(eg.review tests), obtaining and/or reviewing separately otained hiistory, ordering medications,tests, procedures, referring, communicating with other health healthcare sales representative, indepentently interpreting results, counseling the patient, care coordination and other (multiple calls with transfer line, wine cellar stock clerk)
[2024-06-25] MEDS: Heparin in 0.45% NaCl 25,000 UNIT/250 ML BAG 10 UNIT IV (14:57)
[2024-06-25] MEDS: Acetaminophen 500 MG TAB 1000 MG PO (19:54)
--- NOTE | 2024-06-25 20:47 | NUR.NOTE ---
Nursing Note: Pt left unit at 2034 via EMS stretcher with [place] with Heparin gtt infusing at 1000units/hr. HS medications except for HS insulin administered. Pt did exhibit rigors prior to transfer and was found to have a fever of 38.3 treated with PRN tylenol. Five attempts made to notify receiving unit of patient's departure and update them about the fever and treatment given with other HS medications. Attempted to call direct to the unit and through [facility] casing wringer operator all calls rang numerous times and automatically disconnected the calls.
== END 2024-06-25 20:35 | disposition short-term general hospital (02) | DRG 291 ==
LOC: ER 06-25 01:16 → ICU 06-25 04:23
PROVIDERS: Internal Medicine; Admitting Provider Family Medicine; Emergency Provider Student in an Organized Health Care Education/Training Program; PCP Family Medicine; Visit Provider Family Medicine
DX: I13.2 Hypertensive heart and chronic kidney disease with heart failure and with stage 5 chronic kidney disease, or end stage renal disease (principal); J81.0 Acute pulmonary edema; J96.01 Acute respiratory failure with hypoxia; N18.5 Chronic kidney disease, stage 5; N17.9 Acute kidney failure, unspecified; R74.8 Abnormal levels of other serum enzymes; I25.10 Atherosclerotic heart disease of native coronary artery without angina pectoris; E78.2 Mixed hyperlipidemia; E11.22 Type 2 diabetes mellitus with diabetic chronic kidney disease; Z95.2 Presence of prosthetic heart valve; D63.1 Anemia in chronic kidney disease; I73.9 Peripheral vascular disease, unspecified; Z95.1 Presence of aortocoronary bypass graft; I50.9 Heart failure, unspecified; R33.9 Retention of urine, unspecified; Z80.0 Family history of malignant neoplasm of digestive organs; Z89.512 Acquired absence of left leg below knee; Z79.4 Long term (current) use of insulin; Z79.85 Long-term (current) use of injectable non-insulin antidiabetic drugs
CPT/HCPCS: 00123; 36415; 80053; 82805; 85027; 87637; 93005; 96374; 99291; 71045; 81003; 81015; 83735; 83880; 84443; 84484; 85025; 85610; 85730; 93010; 99236; J1644; J1815; J1940; J2470

== ENCOUNTER 2024-07-15 11:47 | Outpatient (REF) | payer MEDICARE, BC, SELFPAY ==
[2024-07-15 14:51] LABS: HCT 26.4 % (40.0-50.0); HGB 8.1 g/dL (13.5-17.5); MCH 29.5 pg (27.0-33.0); MCHC 30.7 % (32.0-36.0); MCV 96 fL (80-95); MPV 10.8 fL (8.0-11.0); Platelet Count 189 10^3/uL (130-400); RBC 2.75 10^6/uL (4.36-5.78); RDW 18.4 % (11.8-14.1); RDW-SD 62.1 fL; WBC 3.37 10^3/uL (4.4-10.8)
[2024-07-15 15:03] LABS: ALT 16 U/L (16-63); AST 14 U/L (15-37); Albumin 2.9 g/dL (3.4-5.0); Alkaline Phosphatase 102 U/L (46-116); Anion Gap 10.3 mmol/L (3-11); BUN 41 mg/dL (7-18); Bilirubin, Total 0.32 mg/dL (0.2-1.0); CO2 26.7 mmol/L (21.0-32.0); Calcium 8.6 mg/dL (8.5-10.1); Chloride 100 mmol/L (98-107); Glucose 199 mg/dL (74-106); Potassium 5.1 mmol/L (3.5-5.1); Sodium 137 mmol/L (136-145); Total Protein 6.5 g/dL (6.4-8.2)
[2024-07-15 15:18] LABS: CREATININE 5.5 mg/dL (0.70-1.30)
== END 2024-07-15 11:48 | disposition home or self-care (01) ==
LOC: NCHCN 11:47
PROVIDERS: PCP Family Medicine; Visit Provider Nurse Practitioner Family
DX: N18.9 Chronic kidney disease, unspecified (principal)
CPT/HCPCS: 80053; 85027

== ENCOUNTER 2024-08-05 01:58 | Outpatient (CLI) | payer MEDICARE, BC, SELFPAY ==
[2024-08-05 10:24] LABS: Abs Immature Grans 0.03 10^3/uL (0.0-0.06); Absolute Basophil Count 0.04 10^3/uL (0.0-0.2); Absolute Eosinophil Count 0.09 10^3/uL (0.0-0.7); Absolute Lymphocyte Count 1.03 10^3/uL (1.2-3.4); Absolute Monocyte Count 0.44 10^3/uL (0.1-0.8); Absolute Neutrophil Count 2.93 10^3/uL (1.2-6.7); Basophils % 0.9 %; HGB 13.2 g/dL (13.5-17.5); Immature Grans % 0.7 %; Lymphocytes % 22.6 %; MCH 31.1 pg (27.0-33.0); MCHC 30.7 % (32.0-36.0); MCV 101 fL (80-95); MPV 10.1 fL (8.0-11.0); Monocytes % 9.6 %; Neutrophils % 64.2 %; Nucleated RBC 0.4 % (0.0-0.3); Platelet Count 151 10^3/uL (130-400); RBC 4.25 10^6/uL (4.36-5.78); RDW 18.9 % (11.8-14.1); RDW-SD 68.5 fL; WBC 4.56 10^3/uL (4.4-10.8)
[2024-08-05 11:06] LABS: ALT 22 U/L (16-63); AST 18 U/L (15-37); Albumin 3.4 g/dL (3.4-5.0); Alkaline Phosphatase 144 U/L (46-116); Anion Gap 8.8 mmol/L (3-11); BUN 49 mg/dL (7-18); Bilirubin, Total 0.29 mg/dL (0.2-1.0); CO2 30.2 mmol/L (21.0-32.0); Calcium 9.4 mg/dL (8.5-10.1); Chloride 100 mmol/L (98-107); Estimated GFR 9.76 (mL/min/1.73m2); Glucose 332 mg/dL (74-106); Potassium 4.3 mmol/L (3.5-5.1); Sodium 139 mmol/L (136-145); Total Protein 7.6 g/dL (6.4-8.2)
[2024-08-05 11:21] LABS: CREATININE 5.8 mg/dL (0.70-1.30)
[2024-08-06 16:54] LABS: PSA, Ultrasensitive <0.01 ng/mL (<= 6.5)
[2024-08-10 12:44] LABS: Testosterone, Total 27 ng/dL (240-950)
== END 2024-08-05 01:59 | disposition home or self-care (01) ==
LOC: LBO 01:58
PROVIDERS: Physician Assistant; PCP Family Medicine; Visit Provider Colon & Rectal Surgery
DX: C61 Malignant neoplasm of prostate (principal)
CPT/HCPCS: 36415; 80053; 84153; 84403; 85025

== ENCOUNTER 2025-02-24 03:39 | Outpatient (CLI) | payer MEDICARE, BC, SELFPAY ==
[2025-02-26 10:41] LABS: PSA, Ultrasensitive 0.09 ng/mL (<= 6.5)
[2025-02-28 14:21] LABS: Testosterone, Total 209 ng/dL (240-950)
== END 2025-02-24 03:40 | disposition home or self-care (01) ==
LOC: LBO 03:39
PROVIDERS: PCP Family Medicine; Visit Provider Colon & Rectal Surgery
DX: C61 Malignant neoplasm of prostate (principal)
CPT/HCPCS: 36415; 84153; 84403